=== PATIENT | female | born 1985 | race Caucasian/White ===

== ENCOUNTER 2020-05-11 12:55 | Observation (INO) | payer OTHER, SELFPAY ==
--- NOTE | ~2020-05-11 | US_ITS ---
US OB limited w BPP DATE: 05/11/2020 15:00 INDICATION: decelerations in the office. Gestational diabetes. TECHNIQUE: Real-time imaging and Doppler analysis COMPARISON: 11/25/2019 obstetrical ultrasound FINDINGS: Live bonilla intrauterine gestation, fetus in transverse lie. heart rate of 142 bpm . Placenta is anterior, lower margin 8.3 cm above the cervix. The cervix measures 3.2 cm. Three-vessel umbilical cord. Subjectively normal amount of amniotic fluid. Amniotic fluid index measures 20.4. (5th percentile KSENIA : 7.9 cm; 95th percentile KSENIA: 24.9 cm). BIOPHYSICAL PROFILE reported by composite technician: breathin out of 2 movement: 2 out of 2 tone: 2 out of 2 Amniotic fluid pocket: 2 out of 2 Total score: 8 out of 8 IMPRESSION: Normal biophysical profile score of 8 out of 8 Amniotic fluid index measures 20.4 cm, within normal range Reviewed, dictated and finalized at Location A. Reviewed, dictated and finalized at location A.
[2020-05-11 13:25] VITALS: BMI 31.8
--- NOTE | 2020-05-11 13:25 | OBADM ---
This patient, Rosalba Mathis, admitted to the OB room OB Post 111 for observation. Patient/family oriented to hospital policies and general routines including ID bracelet, bed and alarms, visiting hours, pain management, procedures, bathroom and other care routines, personal items, smoking policy, room service/diet, and visiting hours. Patient/Family are encouraged to report perceived risks to care and to ask questions if they do not understand what they are told or what they should do.
[2020-05-11 13:50] VITALS: BP 107/69; PULSE 86
[2020-05-11 14:00] VITALS: BP 104/66; PULSE 89
[2020-05-11 14:15] VITALS: BP 104/63; PULSE 85
--- NOTE | 2020-05-29 12:50 | PM.OBTRLD ---
OB - Triage/Final Diagnosis Final Diagnosis (1) arrhythmia affecting , antepartum: Code(s): O36.8390 - Maternal care for abnormalities of the heart rate or rhythm, unspecified trimester, not applicable or unspecified Status: Acute
== END 2020-05-11 15:55 | disposition home or self-care (01) ==
PROVIDERS: Admitting Provider Obstetrics & Gynecology; PCP Family Medicine; Visit Provider Obstetrics & Gynecology
DX: O36.8330 Maternal care for abnormalities of the fetal heart rate or rhythm, third trimester, not applicable or unspecified (principal); Z3A.35 35 weeks gestation of pregnancy
CPT/HCPCS: 76815; 76819; G0378; G0379

== ENCOUNTER 2020-06-11 09:37 | Outpatient (CLI) | payer OTHER, SELFPAY ==
[2020-06-11 10:16] LABS: Hematocrit 33.1 % (37.0-47.0); Hemoglobin 10.7 g/dL (12.0-15.0); Mean Corpuscular HGB Conc 32.3 g/dl (32-36); Mean Corpuscular Hemoglobin 27.4 pg (26-34); Mean Corpuscular Volume 84.9 fl (80-100); Mean Platelet Volume 11.6 fl (7.4-10.4); Platelet Count Result 208 k/mm3 (150-375); Red Cell Distribution Width 14.6 % (11.5-14.5); White Blood Count 6.9 K/mm3 (4.5-10.0)
[2020-06-12 10:52] LABS: Rapid Plasma Reagin Non-Reactive (NonReactive)
== END 2020-06-11 09:38 | disposition home or self-care (01) ==
PROVIDERS: PCP Family Medicine; Visit Provider Obstetrics & Gynecology
DX: Z34.93 Encounter for supervision of normal pregnancy, unspecified, third trimester (principal); Z3A.00 Weeks of gestation of pregnancy not specified
CPT/HCPCS: 36415; 85027; 86592; 86850; 86900; 86901

== ENCOUNTER 2020-06-12 08:22 | Inpatient (IN) | payer OTHER, SELFPAY ==
[2020-06-12] VITALS (51 sets, daily range): BP systolic 94–122; BP diastolic 33–86; PULSE 55–79; RESP 14–20; TEMP 36.1–36.4; O2SAT 96–100; BMI 32.5
--- NOTE | 2020-06-12 08:41 | LDADM ---
This patient, Rosalba Mathis, was admitted to OB Post 117 on 06/12/20 at 08:22. Plans for labor, pain management and were discussed with patient. Patient/family oriented to hospital policies and general routines including ID bracelet, bed and alarms, visiting hours, pain management, procedures, bathroom and other care routines, personal items, smoking policy, room service/diet and guest tray routines, infant security routines, and visiting hours. Patient/Family are encouraged to report perceived risks to care and to ask questions if they do not understand what they are told or what they should do. See OBIX for further documentation.
--- NOTE | 2020-06-12 08:44 | PM.IMHP ---
H&P: HPI History of Present Illness Chief complaint: c/s Narrative: Rosalba Mathis is a 34 year old female A1 @ 39 weeks by first trimester ultrasound lmp 09/15/19 edc 06/16/20 complicated by AMA, csectin x 4, history of , a2gdm and fetus +choroid plexus cyst and arrythmia normal chromosomes. U/S with [facility]. Patient DM controlled well. Patient reports movement and irregular contractions. [facility] Past Medical History Medical History arrhythmia affecting , antepartum Surgical History Surgical History (Updated 06/12/20 @ 08:49 by Kayden Solis MD) H/O: Social History Social History Smoking status: Never smoker Second hand tobacco smoke exposure: No Alcohol intake: current Substance use: never Gender identity (if verbalized by the patient): Female Spiritual care concerns: No Meds Home Medications and Allergies Allergies Allergy/AdvReac Type Severity Reaction Status Date / Time No Known Allergies Allergy Unverified 11/08/16 12:42 Exam Const: General: no acute distress Resp: Auscultation: clear to auscultation bilaterally Cardio: Rate: regular rate Rhythm: regular rhythm GI: GI Palp: Yes Soft to palpation (Gravid) Assessment and Plan Assessment and plan (1) H/O: : Code(s): Z98.891 - History of uterine scar from previous surgery Status: Acute Assessment and Plan: schedule for a repeat csection. Risk and benefits reviewed with patient in detail. Patient agrees to proceed.
[2020-06-12] MEDS: LACTATED RINGERS 1,000 ML 999 ML IV CONT ×2 (09:15→09:32)
--- NOTE | 2020-06-12 09:32 | P.PNAN_ITS ---
Anes - Initial Pre Proc Eval Procedure: Operation Date: 06/12/20 10:30 Proposed Procedures p Repeat Section - Kayden Solis MD Date/Time: 06/12/20 09:32 Surgeon: aKyden Solis MD Pre Op Diagnosis: c/s Patient Data Age: 34 Gender: F Height: Weight: Allergies Allergy/AdvReac Type Severity Reaction Status Date / Time No Known Allergies Allergy Unverified 11/08/16 12:42 Home Medications Medication Instructions Recorded Confirmed Type [id number] fumarate-FA 1 tablet PO DAILY 06/12/20 06/12/20 History [] ergocalciferol (vitamin D2) 1,250 mcg PO DAILY 06/12/20 06/12/20 History ferrous sulfate [Slow Fe] 142 mg PO DAILY 06/12/20 06/12/20 History insulin NPH isoph U-100 human 6 unit SUBCUT DAILY 06/12/20 06/12/20 History [Humulin N NPH U-100 Insulin] Patient hx anesthesia problems: none Family hx anesthesia problems: none [facility] Past Medical History Medical History (Updated 06/12/20 @ 09:33 by Arun Maldonado MD) arrhythmia affecting , antepartum GDM (gestational diabetes mellitus) Surgical History Surgical History (Updated 06/12/20 @ 08:49 by Kayden Solis MD) H/O: Social History Social History Smoking status: Never smoker Second hand tobacco smoke exposure: No Alcohol intake: current Substance use: never Gender identity (if verbalized by the patient): Female Spiritual care concerns: No Anes - Eval Final PreProcedure Day of Procedure 06/12/20 09:32 Patient weight: obese Heart: regular rate and rhythm Lungs: clear to auscultation and normal air movement Airway: Mallampati scale class II Neurological: alert and oriented Last oral intake: >/= 8 hours ASA classification: III Emergent: no Anesthetic plan: proceed Anesthesia type and monitoring: regional spinal Informed Consent: The patient's anesthetic plan and its attendant risks and benefits were discussed with the patient/family/POA. Questions were solicited and answers provided to the satisfaction of the patient/family/POA.
[2020-06-12] MEDS: KETOROLAC 30 MG/ML VIAL (*BKC) IV PUSH (11:08)
--- NOTE | 2020-06-12 11:19 | PM.OBPRVD ---
OB - Delivery Note Procedure Delivery date: 06/12/20 Procedure: Procedures Operation Date: 06/12/20 10:30 Actual Procedures Side Surgeon p Section Kayden Solis MD events: Gestational Diabetes Route of delivery: Estimated blood loss (mL): 655 Anesthesia type: Spinal Disposition: observation [place] Baby Date of : 06/12/20 Time of : 10:48 Weeks of gestation at delivery: 39 Infant gender: Female Weight (pounds): 8 Weight (ounces): 9 presentation: vertex position: Left Occiput Anterior Placenta delivery description: Expressed cord vessel description: 3 Vessels score one minute: 8 score five minutes: 9
[2020-06-12] MEDS: diphenhydrAMINE HCl INJ 50 MG/ML VIAL 12.5 MG IV PUSH (11:58)
--- NOTE | 2020-06-12 12:19 | SUR.PHASEI ---
BABY IS STILL ATTEMPTING TO BREASTFEED. MOTHER WORKING WELL WITH TRYING, BABY WILL LATCH AND SUCK AND LET GO.
[2020-06-12] MEDS: OXYTOCIN 30 UNITS/NS 500 ML 30 UNITS/500 ML BAG 125 UNITS IV CONT (13:40)
--- NOTE | 2020-06-12 13:57 | PC.NURSE ---
1332-Patient transferred to post room #292 via stretcher. Support person present. Oriented to unit, room, information board, rooming in, admission packet and security measures. Patient verbalizes understanding.
--- NOTE | 2020-06-12 14:38 | SUR.PHASEI ---
1330 ASSESSMENT REMAINS STABLE AND UNCHANGED...READY FOR TRANSPORT TO [facility] AND REPORT TO [facility].
[2020-06-12] MEDS: DEXTROSE 5%/0.45% SOD CHL 1,000 ML 125 ML IV CONT (17:53)
[2020-06-12] MEDS: IBUPROFEN 600 MG TABLET PO (20:32)
[2020-06-12] MEDS: SIMETHICONE 80 MG TAB.CHEW PO (20:33)
[2020-06-13 00:47] VITALS: BP 94/52; PULSE 76; RESP 16; TEMP 36.4; O2SAT 100
[2020-06-13] MEDS: SIMETHICONE 80 MG TAB.CHEW PO ×6 (04:36→23:57)
[2020-06-13] MEDS: IBUPROFEN 600 MG TABLET PO ×3 (04:36→20:45)
[2020-06-13 04:55] VITALS: BP 108/63; PULSE 77; RESP 20; TEMP 36.6; O2SAT 100
[2020-06-13 05:00] VITALS: O2SAT 100
[2020-06-13 05:10] LABS: Basophils Percent Auto 0.4 % (0.2-1.2); Eosinophils Absolute Auto 0.1 K/mm3 (0-0.3); Eosinophils Percent Auto 1.1 % (0-4.4); Hematocrit 29.2 % (37.0-47.0); Hemoglobin 9.2 g/dL (12.0-15.0); Immature Granulocyte Absolute 0.05 K/mm3 (0.00-0.031); Immature Granulocyte Percent A 0.9 % (0-0.5); Lymphocytes Absolute Auto 1.03 K/mm3 (0.9-3.2); Lymphocytes Percent Auto 18.2 % (18.3-44.2); Mean Corpuscular HGB Conc 31.5 g/dl (32-36); Mean Corpuscular Hemoglobin 27.5 pg (26-34); Mean Corpuscular Volume 87.4 fl (80-100); Mean Platelet Volume 11.4 fl (7.4-10.4); Monocytes Absolute Auto 0.5 K/mm3 (0.1-0.6); Neutrophils Absolute Auto 4.1 K/mm3 (1.3-6.7); Neutrophils Percent Auto 71.4 % (45.5-73.1); Platelet Count Result 159 k/mm3 (150-375); Red Blood Count 3.34 M/mm3 (4.2-5.4); Red Cell Distribution Width 14.5 % (11.5-14.5); White Blood Count 5.7 K/mm3 (4.5-10.0)
[2020-06-13] MEDS: DOCUSATE SODIUM 100 MG CAPSULE PO ×2 (09:19→17:13)
[2020-06-13] MEDS: POLYSACCHARIDE IRON COMPLEX 150 MG CAPSULE PO ×2 (09:19→17:13)
[2020-06-13 09:50] VITALS: BP 125/67; PULSE 80; RESP 18; TEMP 36.6; O2SAT 100
--- NOTE | 2020-06-13 10:05 | PM.OBPNVD ---
OB - PN: Subj Subjective Date/time seen: 06/13/20 10:05 Patient comments: no complaints and pain well controlled baby status: doing well OB - PN: Obj Data Labs CBC & Chem 7: 06/13/20 04:59 Labs: Laboratory Results - last 24 hr 06/13/20 04:59 WBC 5.7 RBC 3.34 L Hgb 9.2 L Hct 29.2 L MCV 87.4 MCH 27.5 MCHC 31.5 L RDW 14.5 Plt Count 159 MPV 11.4 H Immature Gran % (Auto) 0.9 H Neut % (Auto) 71.4 Lymph % (Auto) 18.2 L [place] % (Auto) 8.0 Eos % (Auto) 1.1 Baso % (Auto) 0.4 Lymph # (Auto) 1.03 [place] # (Auto) 0.5 Eos # (Auto) 0.1 Baso # (Auto) 0.0 Abs Immat Gran (auto) 0.05 H Absolute Neuts (auto) 4.1 Absolute Nucleated RBC 0.0 Nucleated RBC % 0.0 OB - PN A/P Plan day: 1 Plan: routine care Time Spent With Patient Time: Total time spent is greater than 50% in coordination of care (as documented) at patient's floor/unit and/or counseling patient: Exam GI: Other: incision c/d/i : Bimanual exam- vagina & uterus: other (Uterus firm, nt @U)
--- NOTE | 2020-06-13 10:24 | OP_ITS ---
DATE OF PROCEDURE: 06/12/2020 PREOPERATIVE DIAGNOSIS: Repeat section. POSTOPERATIVE DIAGNOSIS: Repeat section. PROCEDURE PERFORMED: Repeat section. ANESTHESIA: Spinal. ESTIMATED BLOOD LOSS: 655 mL. URINE OUTPUT: . FINDINGS: Female infant in vertex presentation. DESCRIPTION OF PROCEDURE: The patient was taken to the operating room with IV running, prepared and draped in normal sterile fashion. Spinal anesthesia was performed. The patient was positioned in a supine position with a leftward tilt prior to being prepped for surgery. A Pfannenstiel incision was made with a scalpel, carried down to the underlying layer of fascia. The fascial incision was then extended bilaterally with Garduno scissors. Superior aspect of the incision was grasped with Alissa clamps, elevated, dissected off the rectus muscles. The inferior aspect of the incision was grasped with Alissa clamps, elevated, dissected off the rectus muscles. The rectus muscles were in the midline. The peritoneum was entered and noted a thin uterine window on the left aspect of the uterus. The bladder flap was created by grasping the vesicouterine peritoneum sharply and creating a bladder flap bluntly. Bladder blade was reinserted and the lower uterine segment was incised in a transverse fashion. Clear fluid noted. The fetus delivered atraumatically. Cord was clamped and cut. The fetus was handed off to the waiting nurse. Cord blood and cord gases were obtained. The placenta was delivered spontaneously and the uterus was exteriorized of all clots and debris. The uterine incision was then closed with 0 Monocryl in a running locked fashion. A 2nd layer of the same suture was used to imbricate this incision. The uterus was returned to the abdomen. Hemostasis was assured. The gutters were cleared of all clots and debris and irrigated. Muscles were examined. The fascia was closed with 0 Vicryl suture. Subcutaneous tissue was irrigated and closed with 3-0 plain gut and the skin was closed with 4-0 Vicryl on a Gopi needle and covered with Dermabond. Sponge, lap, and needle counts were correct x2. The patient received 2 g Ancef prior to skin incision. [facility]
--- NOTE | 2020-06-13 14:58 | WPDANLDPN2 ---
Anes-Prog Note L&D Date/Time: 06/13/20 14:58 Comfortable throughout: section Neuraxial method: spinal Epidural/Spinal procedure site: clean & non-tender Neuro status: Neuro function grossly intact. Cardiovascular status: normal Respiratory status: normal Airway patency: baseline Mental status: baseline Post-Op hydration status: normal Vital Signs: Last Vital Signs Temp 36.6 C 06/13/20 09:50 Pulse 80 06/13/20 09:50 Resp 18 06/13/20 09:50 BP 125/67 06/13/20 09:50 Pulse Ox 100 06/13/20 09:50 Pain score (VAS): 0/10. Patient resting in bed at time of assessment, appears comfortable. I/O: Intake & Output 06/12/20 06/13/20 06/13/20 23:59 07:59 15:59 Intake Total 600 300 Output Total 1500 3100 1050 Balance -900 -2800 -1050 Post-procedural complaints: none Patient feedback: Patient satisfied with anesthetic care.
--- NOTE | 2020-06-13 15:11 | WPDANLDNPN2 ---
Anes-Prog Note L&D-Neuraxial Date/Time: 06/13/20 15:11 Neuraxial medications: intrathecal PF morphine Opiod-related complaints: none Patient feedback: Patient satisfied with post-operative pain management.
[2020-06-13 19:45] VITALS: BP 123/72; PULSE 72; RESP 16; TEMP 36.8; O2SAT 100
--- NOTE | 2020-06-14 00:59 | PC.NURSE ---
Patient was given the opportunity to view the discharge video Mother & Baby Care, The First Two Weeks and to ask questions. Patient declined viewing the video and has been given the mother/baby guide for home reference.
[2020-06-14 07:45] VITALS: BP 135/75; PULSE 77; RESP 18; TEMP 36.9
[2020-06-14] MEDS: DOCUSATE SODIUM 100 MG CAPSULE PO (07:50)
[2020-06-14] MEDS: IBUPROFEN 600 MG TABLET PO ×2 (07:50→15:40)
[2020-06-14] MEDS: POLYSACCHARIDE IRON COMPLEX 150 MG CAPSULE PO (07:50)
--- NOTE | 2020-06-14 09:29 | PM.OBPNVD ---
OB - PN: Subj Subjective Date/time seen: 06/14/20 09:29 Patient comments: no complaints and pain well controlled baby status: doing well [place] feeding status: exclusively breast feeding OB - PN: Obj Data Labs CBC & Chem 7: 06/13/20 04:59 OB - PN A/P Plan day: 2 Plan: routine care and discharge home Comments: Plans POP until Mirena Time Spent With Patient Time: Total time spent is greater than 50% in coordination of care (as documented) at patient's floor/unit and/or counseling patient: Exam GI: Other: Inc c/d/i : Bimanual exam- vagina & uterus: other (Uterus firm, nt @U)
[2020-06-17 11:18] VITALS: BP 119/78; PULSE 81; RESP 18; TEMP 37.1; O2SAT 100
--- NOTE | 2020-06-24 13:56 | PM.OBDSVD ---
DS: Admitting Diagnosis Admitting Diagnosis Admitting Diagnosis: Encounter for supervision of normal , unspecified, third trimester OB - DS: Summary OB Procedures : NST and Ultrasound OB Procedures Intrapartum: OB Procedures: : None Peripartum Data Infant Delivery Method: Section Procedures: Procedures Operation Date: 06/12/20 10:30 Actual Procedures Side Surgeon p Section Kayden Solis MD Time Spent with Patient Time attestation: Total time spent providing and/or coordinating discharge services: DS: Data Data Completed and Pending Completed studies during hospitalization: Pending at discharge 06/12/20 10:49 Surgical [PTH] Routine Discharge Plan Discharge Attending physician on discharge: Kayden Solis Consulting providers: Arun Maldonado Discharging Clinician: Morena Ann Anticipated Discharge Date/Time: 06/14/20 09:31 Patient Disposition: Home, Self-Care Activity: may shower, may drive after 2 weeks and pelvic rest Diet: regular Discharge Instructions: Education: Mom and Baby Guide and Preeclampsia Handout Given to: Mother Follow-Up: Call your delivering provider's office for an appointment to be seen in: 1 Week Mom and baby should come to the [facility] for the follow-up appointment. Appointment Date/Time: June 17, 2020 at 11:00 am What to expect at your follow-up visit: Physical Assessment Call [phone] if you are unable to keep your appointment time. BREAST CARE: 1. Wear a snug supportive bra. 2. For engorgement discomfort: Breast Feeding: A. Apply warm moist washcloths B. Express milk as needed to relieve engorgement C. Wear loose clothing 3. For sore nipples: A. Identify correct latch-on B. Apply warm moist washcloths before and after nursing C. Air dry nipples after nursing D. May apply Lansinoh cream to nipples ABDOMINAL INCISION: (if applicable) 1. Allow incision to air dry 2. Do NOT use lotions for powders on your incision 3. When showering, allow soap and water to run over the incision, but do not wash incision EPISIOTOMY/PERINEAL CARE: 1. Until bleeding stops, use your darya bottle after urinating 2. Change your pad frequently throughout the day 3. No tub baths until seen by your physician - You may shower ACTIVITY: 1. Rest as much as possible. 2. Do not exercise or lift anything heavier than your baby (such as laundry or other children.) 3. Avoid stairs or driving as much as possible. 4. Do not put anything into the vagina. No douching, tampons, or sexual activity until seen by physician. NOTIFY PHYSICIAN IF YOU HAVE ANY QUESTIONS OR IF ANY OF THE FOLLOWING SYMPTOMS OCCUR: 1. If your incision becomes red, swollen, or more painful than what you have experienced in the hospital. 2. If your vaginal bleeding becomes foul smelling. 3. If your vaginal bleeding becomes more heavy than a period or if your bleeding changes from pink to bright red. However, you may pass an occasional walnut-sized clot once or twice for the first week . 4. If you experience a sharp, shooting pain in you calves. 5. If you discover a hard, reddened area on your breast or if you experience flu-like symptoms. DIET: 1. Eat regular, well-balanced meals. 2. Drink plenty of fluids daily. If , drink to thirst. Stand Alone Forms: General Discharge Information Follow-up/Referrals: Kayden Solis MD [Physician] - 1 Week Discharge Medications: New hydrocodone-acetaminophen 5-325 mg Tablet 1 tab PO Q3H PRN (Reason: Moderate Pain (4-6)) Qty: 15 RF: 0 norethindrone (contraceptive) 0.35 mg tablet 0.35 mg PO DAILY Qty: 1 RF: 1 Continued ergocalciferol (vitamin D2) 1,250 mcg (50,000 unit) capsule 1,250 mcg PO DAILY RF: 0 Slow Fe 142 mg (45 mg iron) Tablet Ext
== END 2020-06-14 15:43 | disposition home or self-care (01) | DRG 788 ==
LOC: ANHOB2 06-14 14:19 → ANHLDR 06-17 07:28 → ANHOBPP 06-17 07:28 → ANHOB2 06-19 17:09
PROVIDERS: Admitting Provider Obstetrics & Gynecology; Visit Provider Obstetrics & Gynecology Gynecology
PROC: 10D00Z1 Extraction of Products of Conception, Low, Open Approach (ICD-10-PCS; CPT 59514; principal; 2020-06-12 10:30)
DX: O34.211 Maternal care for low transverse scar from previous cesarean delivery (principal); O24.424 Gestational diabetes mellitus in childbirth, insulin controlled; Z3A.38 38 weeks gestation of pregnancy; Z37.0 Single live birth; O99.214 Obesity complicating childbirth; E66.9 Obesity, unspecified
CPT/HCPCS: 36415; 85025; 85027; 86592; 86850; 86900; 86901; 88307; 99199; A9270; J0131; J1200; J1885; J2274; J2370; J2405; J2590; J3010; J7120

== ENCOUNTER → 2021-10-20 13:00 | Outpatient (CLI) | payer OTHER, SELFPAY ==
--- NOTE | ~2021-10-20 | US_ITS ---
EXAMINATION: 1. US OB /maternal detail 2. US_OBFEMATADD_US DATE: 10/20/2021 14:00 INDICATION: Uncertain chorionicity. TECHNIQUE: Real-time ultrasound of the pelvis was performed. COMPARISON: None. FINDINGS: There are two fetuses by a membrane with twin peaks sign. The placentas are anterior and po sterior. Fetus A is in breech presentation on the mother's right with heart rate of 153 bpm by m-mode Doppler. The following biometric data were obtained for fetus A: Biparietal diameter (BPD): 2.9 cm; head circumference (HC): 11.3 cm; abdominal circumference (AC): 9. 2 cm; femur length (FL): 1.4 cm. These measurements are concordant. Estimated weight is 109 g +/- 16 g, which correlates with 11th percentile when 04/10/22 is used as estimated date of delivery. As single measurements, these parameters are each equal to the following estimated gestational ages w ith ranges of +/- 2 standard deviations: BPD: 15 weeks 2 days (14 weeks 1 days - 16 weeks 4 days). HC: 15 weeks 3 days (14 weeks 2 days - 16 weeks 5 days). AC: 15 weeks 2 days (13 weeks 5 days - 17 weeks 0 days). FL: 14 weeks 2 days (12 weeks 6 days - 15 weeks 4 days). estimated gestational age based solely on measurements from this exam is 15 weeks 1 days +/- 1 weeks 0 days. Fetus B demonstrates a crown-rump length of 3.0 cm, which correlates with an estimated gestational ag e of 9 weeks and 6 days +/- 6 days. There is no heart movement by M-mode Doppler in Fetus B, co nsistent with demise. IMPRESSION: 1. Dichorionic, diamniotic twins. 2. Living Fetus A with estimated date of delivery of 04/12/2022. 3. Demise of Fetus B. Reviewed, dictated and finalized at location A. CAMP ATTENDANT IMPRESSION: 1. Dichorionic, diamniotic twins. 2. Living Fetus A with estimated date of delivery of 04/12/2022. 3. Demise of Fetus B.
== END ==
PROVIDERS: Visit Provider Obstetrics & Gynecology
DX: O30.041 Twin pregnancy, dichorionic/diamniotic, first trimester (principal); Z3A.09 9 weeks gestation of pregnancy
CPT/HCPCS: 76805; 76810

== ENCOUNTER 2021-12-30 15:45 | Emergency (ER) | payer OTHER, SELFPAY ==
--- NOTE | ~2021-12-30 | XR_ITS ---
XR chest 1V portable DATE: 12/30/2021 17:36 INDICATION: Shortness of breath on exertion. 25 weeks patient. TECHNIQUE: Portable AP view with double shielding of the abdomen and pelvis COMPARISON: None FINDINGS: Normal heart size. No hilar or mediastinal enlargement. No pulmonary infiltrate or consolid ation, pleural effusion or pulmonary vascular congestion or pneumothorax. Included skeletal structure s are unremarkable other than mild dextroscoliosis of the thoracolumbar spine. IMPRESSION: No active cardiopulmonary disease Reviewed, dictated and finalized at location A. UCTION CONTROL MANAGER
[2021-12-30 15:56] VITALS: BP 131/93; PULSE 91; RESP 18; TEMP 36.4; O2SAT 97
--- NOTE | 2021-12-30 16:15 | ECG_ITS ---
Measurements Intervals [place] Rate: 93 P: 54 NJ: 131 QRS: 36 QRSD: 86 T: -1 QT: 356 QTc: 443 Interpretive Statements SINUS RHYTHM BORDERLINE T WAVE ABNORMALITY- INFERIOR LEADS BASELINE ARTIFACT- I, II, III, AVR, AVL, AVF, V1, V3-V6 BORDERLINE ECG Electronically Signed On 12-30-2021 16:25:25 METALWORKER by Chapincito Lewis D.O.
--- NOTE | 2021-12-30 16:17 | ED.SOB ---
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 Patient had COVID symptoms December 01, 2 days later tested positive for Covid, most of the symptoms are resolved except shortness of breath. Gets worse on exertion, better at rest. Patient also noticed increased heart rate with activities. Patient denies increase the severity of the shortness of breath. Patient unable to see a film masker soon thus why referred to the emergency room to rule out the possibility of PEs. Currently patient is asymptomatic as long as sitting in bed. Patient is 25 weeks , seven, para five and one. Patient does not take medicine at home, does not smoke or drink or uses drugs. <Renetta Galicia MD - Last Filed: 12/30/21 16:29> Related Data Home Medications: Home Medications Medication Instructions Recorded Confirmed hydroxyprogest(PF)(preg presv) 275 mg SUBCUT WEEKLY 12/30/21 [Izzy (PF)] <Renetta Galicia MD - Last Filed: 12/30/21 16:29> Allergies/Adverse Reactions: Allergies Allergy/AdvReac Type Severity Reaction Status Date / Time No Known Allergies Allergy Verified 12/30/21 16:49 <Renetta Galicia MD - Last Filed: 12/30/21 16:29> Review of Systems Review of Systems: CONSTITUTIONAL: Denies fever, chills, or sweats. EYES: Denies visual changes, redness, or discharge. ENT: Denies rhinorrhea, congestion, sore throat, or otalgia. CARDIOVASCULAR: Denies chest pain, palpitations, or edema. RESPIRATORY: Denies cough or dyspnea. GASTROINTESTINAL: Denies abdominal pain, nausea, vomiting, or diarrhea. GENITOURINARY: Denies dysuria or hematuria. SKIN: Denies rash or itching. MUSCULOSKELETAL: Denies back pain, joint pain, or myalgia. NEUROLOGIC: Denies headache, numbness, or weakness. PSYCHIATRIC: Denies anxiety or depression. <Renetta Galicia MD - Last Filed: 12/30/21 16:29> Exam Narrative: General appearance: Well-developed, well-nourished Skin: Normal color Head: Normocephalic, nontraumatic Eyes: Clear conjunctiva ENT: Oropharynx normal, ears normal, nose normal Neck: Supple, nontender Chest and respiratory: Airway patent, no respiratory distress, no accessory muscle use Heart: Regular rate/rhythm Abdomen: Soft, nontender, no organomegaly, quiet bowel sounds Vascular: Normal peripheral pulses, normal capillary refill. 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
[2021-12-30 16:29] VITALS: O2SAT 100
[2021-12-30 16:35] LABS: Basophils Percent Auto 0.1 % (0.2-1.2); Eosinophils Percent Auto 0.4 % (0-4.4); Hematocrit 30.9 % (37.0-47.0); Hemoglobin 10.3 g/dL (12.0-15.0); Immature Granulocyte Absolute 0.04 K/mm3 (0.00-0.031); Immature Granulocyte Percent A 0.5 % (0-0.5); Lymphocytes Absolute Auto 1.36 K/mm3 (0.9-3.2); Lymphocytes Percent Auto 18.7 % (18.3-44.2); Mean Corpuscular HGB Conc 33.3 g/dl (32-36); Mean Corpuscular Hemoglobin 30.7 pg (26-34); Mean Corpuscular Volume 92.2 fl (80-100); Mean Platelet Volume 10.6 fl (7.4-10.4); Monocytes Absolute Auto 0.4 K/mm3 (0.1-0.6); Monocytes Percent Auto 5.8 % (2.6-8.5); Neutrophils Absolute Auto 5.4 K/mm3 (1.3-6.7); Neutrophils Percent Auto 74.5 % (45.5-73.1); Platelet Count Result 210 k/mm3 (150-375); Red Blood Count 3.35 M/mm3 (4.2-5.4); Red Cell Distribution Width 12.7 % (11.5-14.5); White Blood Count 7.3 K/mm3 (4.5-10.0)
[2021-12-30 16:45] LABS: Alanine Aminotransferase 21 U/L (4-35); Albumin Level 3.6 g/dL (3.5-5.1); Alkaline Phosphatase 75 U/L (38-126); Anion Gap 6 mmol/L (8-16); Aspartate Amino Transferase 26 U/L (14-36); Bilirubin,Total 0.1 mg/dL (0.2-1.3); Blood Urea Nitrogen 10 mg/dL (7-17); Calcium 8.7 mg/dL (8.4-10.2); Carbon Dioxide 21 mmol/L (22-30); Chloride 108 mmol/L (98-107); Estimated CRCL calculation 100 ml/min; Estimated Glomerular Filt Rate > 60; Glucose 147 mg/dL (65-110); Magnesium 1.6 mg/dL (1.6-2.3); Potassium 3.4 mmol/L (3.4-5.0); Sodium 135 mmol/L (137-145)
[2021-12-30 16:49] LABS: INR 0.9; Partial Thromboplastin Time 25.6 SECONDS (22.3-36.8); Prothrombin Time 12.3 Seconds (11.1-14.7)
[2021-12-30 16:52] LABS: D Dimer 0.42 ug/mL (<0.48)
[2021-12-30 16:53] VITALS: PULSE 82; RESP 14; O2SAT 100
[2021-12-30 16:57] LABS: Troponin I < 0.012 ng/mL (0.000-0.034)
[2021-12-30 17:00] LABS: Alveolar/Arterial O2 Gradient 13.3 mmHg; Fractional Inspired Oxygen 21 %; HCO3 ABG 19.6 mEq/l (22.0-26.0); Oxygen Content ABG 15.2 %vol (16.0-22.0); Oxygen Saturation ABG 98.1 % (95.0-100.0); Oxyhemoglobin 96.5 % THb (90.0-100.0); PCO2 ABG 27.5 mmHg (35.0-45.0); PO2 ABG 103.5 mmHg (80.0-100.0); PO2 FiO2 Ratio Arterial Blood 4.93 %; Total Hemoglobin 11.1 g/dL (12.0-18.0); pH ABG 7.471 (7.350-7.450)
[2021-12-30 17:01] LABS: Device ROOM AIR; Site Drawn LEFT BRACHIAL
[2021-12-30 18:25] VITALS: BP 116/69; PULSE 88; RESP 16; O2SAT 100
== END 2021-12-30 18:28 | disposition home or self-care (01) ==
PROVIDERS: Emergency Medicine; Emergency Provider Emergency Medicine; PCP Family Medicine
DX: O99.891 Other specified diseases and conditions complicating pregnancy (principal); R06.00 Dyspnea, unspecified; Z3A.25 25 weeks gestation of pregnancy
CPT/HCPCS: 36415; 36600; 71045; 80053; 82805; 83735; 84484; 85025; 85380; 85610; 85730; 93005; 99284

== ENCOUNTER 2022-02-17 12:01 | Outpatient (CLI) | payer OTHER, SELFPAY ==
[2022-02-17 12:25] LABS: Hematocrit 30.6 % (37.0-47.0); Hemoglobin 10.3 g/dL (12.0-15.0); Mean Corpuscular HGB Conc 33.7 g/dl (32-36); Mean Corpuscular Hemoglobin 30.9 pg (26-34); Mean Corpuscular Volume 91.9 fl (80-100); Mean Platelet Volume 11.4 fl (7.4-10.4); Platelet Count Result 158 k/mm3 (150-375); Red Blood Count 3.33 M/mm3 (4.2-5.4); Red Cell Distribution Width 13.2 % (11.5-14.5); White Blood Count 5.7 K/mm3 (4.5-10.0)
[2022-02-17 12:35] LABS: Alanine Aminotransferase 76 U/L (4-35); Albumin Level 3.4 g/dL (3.5-5.1); Alkaline Phosphatase 120 U/L (38-126); Anion Gap 8 mmol/L (8-16); Aspartate Amino Transferase 64 U/L (14-36); Bilirubin,Total 0.3 mg/dL (0.2-1.3); Blood Urea Nitrogen 8 mg/dL (7-17); Calcium 7.9 mg/dL (8.4-10.2); Carbon Dioxide 20 mmol/L (22-30); Chloride 109 mmol/L (98-107); Estimated Glomerular Filt Rate > 60; Glucose 68 mg/dL (65-110); Potassium 4.3 mmol/L (3.4-5.0); Sodium 137 mmol/L (137-145); Uric Acid 7.1 mg/dL (2.5-7.5)
== END 2022-02-17 12:02 | disposition home or self-care (01) ==
PROVIDERS: Visit Provider Obstetrics & Gynecology Gynecology
DX: O13.3 Gestational [pregnancy-induced] hypertension without significant proteinuria, third trimester (principal); Z3A.00 Weeks of gestation of pregnancy not specified
CPT/HCPCS: 36415; 80053; 84550; 85027

== ENCOUNTER 2022-02-18 15:00 | Inpatient (IN) | payer OTHER, SELFPAY ==
[2022-02-18] VITALS (14 sets, daily range): BP systolic 142–167; BP diastolic 77–89; PULSE 64–76
--- NOTE | ~2022-02-18 | US_ITS ---
EXAMINATION: US OB limited, US umbilical doppler DATE: 03/03/2022 07:37 INDICATION: Preeclampsia, third trimester TECHNIQUE: Real-time ultrasound of the pelvis was performed. The interpreting radiologist was not pre sent for the study. COMPARISON: None. FINDINGS: There is a single living fetus in vertex presentation. The placenta is posterior. car diac activity and movement are noted. heart rate is 130 beats per minute (bpm). The amnio tic fluid index is 13.2 cm which is normal (normal range: 8.1 cm to 24.8 cm). Umbilical artery pulsed Doppler demonstrates peak systolic to end-diastolic velocity ratios (S/D rati os) of 3.4 and 3.2 near the fetus, 3.0 and 3.2 in the mid cord, and 2.7 and 2.9 near the placenta (5t h percentile = 2.07, 95th percentile = 3.4). IMPRESSION: 1. Single living fetus in vertex presentation. 2. Normal umbilical artery Dopplers. 3. Normal amniotic fluid index. Reviewed, dictated and finalized at location A. IMPRESSION: 1. Single living fetus in vertex presentation. 2. Normal umbilical artery Dopplers. 3. Normal amniotic fluid index.
--- NOTE | ~2022-02-18 | US_ITS ---
EXAMINATION: US OB limited, US umbilical doppler DATE: 02/24/2022 08:04 INDICATION: Preeclampsia. TECHNIQUE: Real-time ultrasound of the pelvis was performed. This included Doppler imaging of the umb ilical artery. The interpreting radiologist was not present for the study. COMPARISON: 02/21/2022 FINDINGS: There is a single living fetus in breech presentation. The placenta is posterior. heart rate i s 130 beats per minute (bpm). The amniotic fluid index is 16.9 cm, which is normal (5th%-95%: 8.3-24. 5 cm at 33 weeks estimated gestational age). The umbilical artery demonstrates a peak systolic and di astolic velocity ratio of 3.6 at the fetus, 3.4 in the mid cord and 2.35 near the placenta (5th%-95%: 2.11-3.67 at 33 weeks). IMPRESSION: 1. Single living fetus in breech presentation with heart rate of 130 bpm. 2. Normal amniotic fluid index of 16.9 cm. 3. Normal umbilical artery peak systolic to diastolic ratio. Reviewed, dictated and finalized at location B. IMPRESSION: 1. Single living fetus in breech presentation with heart rate of 130 bpm . 2. Normal amniotic fluid index of 16.9 cm. 3. Normal umbilical artery peak systolic to diastolic ratio.
--- NOTE | ~2022-02-18 | US_ITS ---
EXAMINATION: US OB follow up, US umbilical doppler EXAM DATE: 03/10/2022 07:57 INDICATION: EFW, growth percentile, KSENIA- Gest DM and preeclamp 3rd trimester. TECHNIQUE: Pelvic obstetrical transabdominal sonogram was performed by a technologist. There are mu ltiple grayscale and Doppler images available for interpretation. Umbilical artery Doppler ratios. Co mparison is made to prior examination from 03/03/2021. FINDINGS: There is a single fetus identified in vertex presentation with a heart rate of 134 beats pe r minute. The placenta is located in the posterior position. There is no sonographic evidence of ret roplacental hemorrhage identified. The amniotic fluid index is 14.5 centimeters, which is normal. BIOMETRIC DATA: Biparietal diameter (BPD): 8.5 cm ----------------> 34 weeks 3 days. Head circumference (HC): 31.0 cm ----------------> 34 weeks 5 days. Abdominal circumference (AC): 28.6 cm ----------> 32 weeks 5 days. Femur length (FL): 5.8 cm --------------------------> 30 weeks 4 days. These measurements are discordant, femur length more than 2 standard deviations lower than expected. Low femur length/BPD ratio. HC/AC ratio is 1.08 (The 5th -- 95th percentile range is 0.96-1.11. Estimated weight is 1959 g +/- 294 g. This is the less than 3rd percentile when the currently reported clinical gestation age 35 weeks 2 days, clinical estimated date of delivery (FELIPA-OPE) 022 is used. estimated gestational age based on measurements from this exam is 33 weeks 1 day, with an estimated date of delivery (FELIPA-AUA) 04/27. UMBILICAL ARTERY DOPPLER Systolic/diastolic ratios obtained as follows: Near baby: 5.1, 4.2 Mid aspect: 3.8, 4.5 Near Placenta: 3.2, 3.0 (The 5th -- 95th percentile range is 2.0 -- 3.4). IMPRESSION: 1. Single fetus in vertex presentation with heart rate 134 beats per minute. 2. Estimated weight of 1959 grams, less than 3rd percentile using the currently reported clini rohini gestation age of 35 weeks 2 days, FELIPA(OPE) 04/12. 3. Femur length, FL/BPD ratio, EFW more than 2 standard deviations below expected. 4. Normal KSENIA 14.5 cm. 5. No low umbilical artery Doppler ratios. Reviewed, dictated and finalized at location A. IMPRESSION: 1. Single fetus in vertex presentation with heart rate 134 beats per minute. 2. Estimated weight of 1959 grams, less than 3rd percentile using the cu rrently reported clinical gestation age of 35 weeks 2 days, FELIPA(OPE) 04/12. 3. Femur length, FL/BPD ratio, EFW more than 2 standard deviations below expec chel. 4. Normal KSENIA 14.5 cm. 5. No low umbilical artery Doppler ratios.
--- NOTE | ~2022-02-18 | US_ITS ---
EXAMINATION: US OB BPP wo non-stress DATE: 02/21/2022 08:13 INDICATION: Gestational diabetes. Preeclampsia. Third trimester. TECHNIQUE: Real-time pelvic ultrasound was performed. COMPARISON: Ultrasound 10/20/2021 FINDINGS: There is a single living fetus in vertex presentation. The placenta is posterior. heart rate i s 148 beats per minute (bpm). Biophysical profile performed by the technologist: breathing (30 sec sustained breathing in 30 minutes): 0 out of 2 movement (3 gross body movements in 30 minutes): 2 out of 2 tone (one episode of htegrrc-[id number]-[id number] limb movement): 2 out of 2 Amniotic fluid pocket (2 cm): 2 out of 2 Total score: 6 out of 8 IMPRESSION: 1. Single living fetus in vertex presentation. 2. Biophysical profile 6 out of 8. Reviewed, dictated and finalized at location A.
[2022-02-18 12:40] LABS: Eosinophils Percent Auto 0.5 % (0-4.4); Hematocrit 29.7 % (37.0-47.0); Hemoglobin 9.8 g/dL (12.0-15.0); Immature Granulocyte Absolute 0.03 K/mm3 (0.00-0.031); Immature Granulocyte Percent A 0.5 % (0-0.5); Lymphocytes Absolute Auto 1.32 K/mm3 (0.9-3.2); Lymphocytes Percent Auto 23.4 % (18.3-44.2); Mean Corpuscular Hemoglobin 30.4 pg (26-34); Mean Corpuscular Volume 92.2 fl (80-100); Mean Platelet Volume 11.3 fl (7.4-10.4); Monocytes Absolute Auto 0.3 K/mm3 (0.1-0.6); Monocytes Percent Auto 5.3 % (2.6-8.5); Neutrophils Percent Auto 70.3 % (45.5-73.1); Platelet Count Result 152 k/mm3 (150-375); Red Blood Count 3.22 M/mm3 (4.2-5.4); Red Cell Distribution Width 13.2 % (11.5-14.5); White Blood Count 5.6 K/mm3 (4.5-10.0)
[2022-02-18 12:50] LABS: Alanine Aminotransferase 77 U/L (4-35); Albumin Level 3.2 g/dL (3.5-5.1); Alkaline Phosphatase 116 U/L (38-126); Anion Gap 5 mmol/L (8-16); Aspartate Amino Transferase 63 U/L (14-36); Bilirubin,Total 0.2 mg/dL (0.2-1.3); Blood Urea Nitrogen 13 mg/dL (7-17); Carbon Dioxide 19 mmol/L (22-30); Chloride 109 mmol/L (98-107); Estimated Glomerular Filt Rate > 60; Glucose 68 mg/dL (65-110); Potassium 3.9 mmol/L (3.4-5.0); Sodium 133 mmol/L (137-145); Uric Acid 6.6 mg/dL (2.5-7.5)
[2022-02-18] MEDS: BETAMETHASONE SOD PHOS/ACETATE 30 MG/5 ML VIAL 12 MG IM (17:03)
[2022-02-18 18:32] LABS: Glucose Point of Care 101 mg/dl (65-105)
[2022-02-18 22:05] LABS: Glucose Point of Care 111 mg/dl (65-105)
[2022-02-18] MEDS: INSULIN HUMAN NPH (*BKC) 100 UNITS/ML 6 UNITS SUB-Q (22:11)
[2022-02-19] VITALS (16 sets, daily range): BP systolic 138–163; BP diastolic 73–89; PULSE 65–107; RESP 16; TEMP 36.6–36.8; BMI 32.6
[2022-02-19 05:46] LABS: Glucose Point of Care 90 mg/dl (65-105)
[2022-02-19 05:49] LABS: Hematocrit 32.7 % (37.0-47.0); Hemoglobin 10.8 g/dL (12.0-15.0); Mean Corpuscular Hemoglobin 30.6 pg (26-34); Mean Corpuscular Volume 92.6 fl (80-100); Mean Platelet Volume 11.4 fl (7.4-10.4); Platelet Count Result 159 k/mm3 (150-375); Red Blood Count 3.53 M/mm3 (4.2-5.4); Red Cell Distribution Width 13.2 % (11.5-14.5); White Blood Count 6.9 K/mm3 (4.5-10.0)
[2022-02-19 05:59] LABS: Alanine Aminotransferase 97 U/L (4-35); Albumin Level 3.3 g/dL (3.5-5.1); Alkaline Phosphatase 115 U/L (38-126); Anion Gap 7 mmol/L (8-16); Aspartate Amino Transferase 80 U/L (14-36); Bilirubin,Total 0.3 mg/dL (0.2-1.3); Blood Urea Nitrogen 11 mg/dL (7-17); Calcium 8.3 mg/dL (8.4-10.2); Carbon Dioxide 19 mmol/L (22-30); Chloride 109 mmol/L (98-107); Estimated Glomerular Filt Rate > 60; Glucose 93 mg/dL (65-110); Potassium 4.4 mmol/L (3.4-5.0); Sodium 135 mmol/L (137-145); Uric Acid 6.8 mg/dL (2.5-7.5)
[2022-02-19 09:41] LABS: Glucose Point of Care 168 mg/dl (65-105)
--- NOTE | 2022-02-19 09:48 | PM.OBPNVD ---
OB - PN: Subj Subjective Date/time seen: 02/19/22 09:48 36-year-old female 6 para [id number] at 33 weeks gestation admitted yesterday with elevated blood pressure from the office. Once admitted pressures have been 12/20/2049 over 80-90 with no complaints of headaches visual changes or abdominal pain. Has had good movement. Also is gestational diabetic on p.m. insulin. Patient had COVID in November this year as well but has recovered from this without any issues. OB - PN: Obj Data Labs CBC & Chem 7: 02/19/22 05:37 02/19/22 05:37 Labs: Laboratory Results - last 24 hr 02/18/22 02/18/22 02/18/22 12:30 12:30 18:24 WBC 5.6 RBC 3.22 L Hgb 9.8 L Hct 29.7 L MCV 92.2 MCH 30.4 MCHC 33.0 RDW 13.2 Plt Count 152 MPV 11.3 H Immature Gran % (Auto) 0.5 Neut % (Auto) 70.3 Lymph % (Auto) 23.4 Rogers % (Auto) 5.3 Eos % (Auto) 0.5 Baso % (Auto) 0.0 L Lymph # (Auto) 1.32 Rogers # (Auto) 0.3 Eos # (Auto) 0.0 Baso # (Auto) 0.0 Abs Immat Gran (auto) 0.03 Absolute Neuts (auto) 4.0 Absolute Nucleated RBC 0.0 Nucleated RBC % 0.0 Sodium 133 L Potassium 3.9 Chloride 109 H Carbon Dioxide 19 L Anion Gap 5 L BUN 13 D Creatinine 0.70 Estim Creat Clear Calc Not Reportable Estimated GFR > 60 Glucose 68 POC Capillary Glucose 101 Uric Acid 6.6 Calcium 8.0 L Total Bilirubin 0.2 AST 63 H ALT 77 H Alkaline Phosphatase 116 Total Protein 6.0 L Albumin 3.2 L 02/18/22 02/19/22 02/19/22 22:02 05:33 05:37 WBC 6.9 RBC 3.53 L Hgb 10.8 L Hct 32.7 L MCV 92.6 MCH 30.6 MCHC 33.0 RDW 13.2 Plt Count 159 MPV 11.4 H Immature Gran % (Auto) Neut % (Auto) Lymph % (Auto) Rogers % (Auto) Eos % (Auto) Baso % (Auto) Lymph # (Auto) Rogers # (Auto) Eos # (Auto) Baso # (Auto) Abs Immat Gran (auto) Absolute Neuts (auto) Absolute Nucleated RBC Nucleated RBC % Sodium Potassium Chloride Carbon Dioxide Anion Gap BUN Creatinine Estim Creat Clear Calc Estimated GFR Glucose POC Capillary Glucose 111 H 90 Uric Acid Calcium Total Bilirubin AST ALT Alkaline Phosphatase Total Protein Albumin 02/19/22 02/19/22 05:37 09:33 WBC RBC Hgb Hct MCV MCH MCHC RDW Plt Count MPV Immature Gran % (Auto) Neut % (Auto) Lymph % (Auto) Rogers % (Auto) Eos % (Auto) Baso % (Auto) Lymph # (Auto) Rogers # (Auto) Eos # (Auto) Baso # (Auto) Abs Immat Gran (auto) Absolute Neuts (auto) Absolute Nucleated RBC Nucleated RBC % Sodium 135 L Potassium 4.4 Chloride 109 H Carbon Dioxide 19 L Anion Gap 7 L BUN 11 Creatinine 0.50 L Estim Creat Clear Calc Not Reportable Estimated GFR > 60 Glucose 93 POC Capillary Glucose 168 H Uric Acid 6.8 Calcium 8.3 L Total Bilirubin 0.3 AST 80 H ALT 97 H Alkaline Phosphatase 115 Total Protein 6.0 L Albumin 3.3 L OB - PN A/P Assessment and Plan (1) 33 weeks gestation of : Code(s): Z3A.33 - 33 weeks gestation of Status: Acute (2) Preeclampsia: Code(s): O14.90 - Unspecified pre-eclampsia, unspecified trimester Status: Acute Assessment and Plan: at this point she is entirely asymptomatic. I discussed with her that if she does begin to have symptoms or significantly elevated blood pressures she will need to be delivered for this reason. And if that does occur prior to 34 weeks if we are able it would be best for her to be transferred to a higher level facility. (3) Elevated liver function tests: Code(s): R79.89 - Other specified abnormal findings of blood chemistry Status: Acute Assessment and Plan: Mild elevations noted and this is increased today. As she has had COVID a
[2022-02-19 13:05] LABS: Collection Time Urine 24 HOURS; Patient Weight 190 Lbs; Total Volume 24 Hour Urine 2550 ml
[2022-02-19 13:29] LABS: Creatinine Clearance Urine 226.1 ml/min (75-125); Creatinine Urine 70.4 mg/dL
[2022-02-19 13:47] LABS: Total Protein Urine Random 294 mg/dL
[2022-02-19 13:48] LABS: Total Protein Urine 24 Hr 7497 mg/24hr (28-141)
--- NOTE | 2022-02-19 15:53 | PC.NURSE ---
called with 24hr urine results, no further orders at this time.
[2022-02-19] MEDS: BETAMETHASONE SOD PHOS/ACETATE 30 MG/5 ML VIAL 12 MG IM (16:49)
[2022-02-19 19:09] LABS: Glucose Point of Care 119 mg/dl (65-105)
[2022-02-19] MEDS: INSULIN HUMAN NPH (*BKC) 100 UNITS/ML 6 UNITS SUB-Q (22:15)
[2022-02-19] MEDS: ACETAMINOPHEN 500 MG TABLET 1000 MG PO (22:16)
[2022-02-20] VITALS (16 sets, daily range): BP systolic 130–157; BP diastolic 69–91; PULSE 66–95; TEMP 36.8–37.2
[2022-02-20 05:23] LABS: Hematocrit 31.4 % (37.0-47.0); Hemoglobin 10.7 g/dL (12.0-15.0); Mean Corpuscular HGB Conc 34.1 g/dl (32-36); Mean Corpuscular Hemoglobin 30.7 pg (26-34); Mean Platelet Volume 11.5 fl (7.4-10.4); Platelet Count Result 184 k/mm3 (150-375); Red Blood Count 3.49 M/mm3 (4.2-5.4); White Blood Count 8.3 K/mm3 (4.5-10.0)
[2022-02-20 05:36] LABS: Glucose Point of Care 162 mg/dl (65-105)
[2022-02-20 05:36] LABS: Alanine Aminotransferase 140 U/L (4-35); Albumin Level 3.3 g/dL (3.5-5.1); Alkaline Phosphatase 112 U/L (38-126); Anion Gap 7 mmol/L (8-16); Aspartate Amino Transferase 105 U/L (14-36); Bilirubin,Total 0.2 mg/dL (0.2-1.3); Blood Urea Nitrogen 11 mg/dL (7-17); Calcium 8.1 mg/dL (8.4-10.2); Carbon Dioxide 17 mmol/L (22-30); Chloride 110 mmol/L (98-107); Estimated CRCL calculation 116 ml/min; Estimated Glomerular Filt Rate > 60; Glucose 119 mg/dL (65-110); Potassium 4.1 mmol/L (3.4-5.0); Sodium 134 mmol/L (137-145); Uric Acid 6.8 mg/dL (2.5-7.5)
--- NOTE | 2022-02-20 07:20 | PM.OBPNVD ---
OB - PN: Subj Subjective Date/time seen: 02/20/22 07:20 36-year-old female admitted for mildly elevated blood pressures at 33 weeks. She continues asymptomatic as she declines headache shortness of breath chest pain visual changes. Good movement and no contractions of significance. OB - PN: Obj Data Labs CBC & Chem 7: 02/20/22 05:14 02/20/22 05:14 Labs: Laboratory Results - last 24 hr 02/19/22 02/19/22 02/19/22 09:33 11:31 19:00 WBC RBC Hgb Hct MCV MCH MCHC RDW Plt Count MPV Sodium Potassium Chloride Carbon Dioxide Anion Gap BUN Creatinine Estim Creat Clear Calc Estimated GFR Glucose POC Capillary Glucose 168 H 119 H Uric Acid Calcium Total Bilirubin AST ALT Alkaline Phosphatase Total Protein Albumin U Random Total Protein 294 Ur 24 Hour Volume 2550 Urine Creatinine 70.4 Creatinine Clearance 226.1 H Ur Total Protein 24 Hr 7497 H 02/19/22 02/20/22 02/20/22 22:04 05:14 05:14 WBC 8.3 RBC 3.49 L Hgb 10.7 L Hct 31.4 L MCV 90.0 MCH 30.7 MCHC 34.1 RDW 13.0 Plt Count 184 MPV 11.5 H Sodium 134 L Potassium 4.1 Chloride 110 H Carbon Dioxide 17 L Anion Gap 7 L BUN 11 Creatinine 0.60 L Estim Creat Clear Calc 116 Estimated GFR > 60 Glucose 119 H POC Capillary Glucose 162 H Uric Acid 6.8 Calcium 8.1 L Total Bilirubin 0.2 AST 105 H ALT 140 H Alkaline Phosphatase 112 Total Protein 6.0 L Albumin 3.3 L U Random Total Protein Ur 24 Hour Volume Urine Creatinine Creatinine Clearance Ur Total Protein 24 Hr OB - PN A/P Assessment and Plan (1) 33 weeks gestation of : Code(s): Z3A.33 - 33 weeks gestation of Status: Acute (2) Preeclampsia: Code(s): O14.90 - Unspecified pre-eclampsia, unspecified trimester Status: Acute Assessment and Plan: continue to monitor blood pressure and symptomatology. (3) Elevated liver function tests: Code(s): R79.89 - Other specified abnormal findings of blood chemistry Status: Acute Assessment and Plan: Levels continue to trend up. Denies right upper quadrant pain symptomatically and/or on exam. (4) GDM (gestational diabetes mellitus): Code(s): O24.419 - Gestational diabetes mellitus in , unspecified control Status: Acute (5) Previous section: Code(s): Z98.891 - History of uterine scar from previous surgery Status: Acute (6) Proteinuria complicating in third trimester: Code(s): O12.13 - Gestational proteinuria, third trimester Status: Acute Assessment and Plan: Proteinuria noted on 24hour urine. As an independent marker while this is significant as an independent very not currently considered an indication for delivery. Time Spent With Patient Time: Total time spent is greater than 50% in coordination of care (as documented) at patient's floor/unit and/or counseling patient: lengthy discussion with patient again this morning regarding timing of delivery and likely that this will happen within the next week. She has received steroids which is beneficial and will be 48hours from that today. At this point her blood pressures and symptoms are not significant enough for delivery. We will continue to monitor all of the above. Have also discussed that if she does need delivery in the next week she most likely would be transferred to a higher level institution as she will be less than 34 weeks.
[2022-02-20 11:02] LABS: Glucose Point of Care 150 mg/dl (65-105)
[2022-02-20 14:39] LABS: Glucose Point of Care 101 mg/dl (65-105)
[2022-02-20 19:45] LABS: Glucose Point of Care 107 mg/dl (65-105)
[2022-02-20 22:14] LABS: Glucose Point of Care 109 mg/dl (65-105)
[2022-02-21] VITALS (7 sets, daily range): BP systolic 135–153; BP diastolic 82–86; PULSE 62–122; RESP 16; TEMP 36.1–37.3; O2SAT 97
[2022-02-21 05:18] LABS: Hematocrit 30.7 % (37.0-47.0); Hemoglobin 9.9 g/dL (12.0-15.0); Mean Corpuscular HGB Conc 32.2 g/dl (32-36); Mean Corpuscular Hemoglobin 30.1 pg (26-34); Mean Corpuscular Volume 93.3 fl (80-100); Mean Platelet Volume 11.5 fl (7.4-10.4); Platelet Count Result 177 k/mm3 (150-375); Red Blood Count 3.29 M/mm3 (4.2-5.4); Red Cell Distribution Width 13.2 % (11.5-14.5); White Blood Count 6.9 K/mm3 (4.5-10.0)
[2022-02-21 05:28] LABS: Alanine Aminotransferase 136 U/L (4-35); Alkaline Phosphatase 92 U/L (38-126); Anion Gap 7 mmol/L (8-16); Aspartate Amino Transferase 98 U/L (14-36); Bilirubin,Total < 0.1 mg/dL (0.2-1.3); Blood Urea Nitrogen 12 mg/dL (7-17); Carbon Dioxide 20 mmol/L (22-30); Chloride 111 mmol/L (98-107); Estimated CRCL calculation 116 ml/min; Estimated Glomerular Filt Rate > 60; Glucose 82 mg/dL (65-110); Sodium 138 mmol/L (137-145); Uric Acid 6.4 mg/dL (2.5-7.5)
--- NOTE | 2022-02-21 10:05 | PM.IMHP ---
H&P: HPI History of Present Illness Date/Time: 02/18/22 1200 Date of admit: Patient not seen this date. Patient is a 36 yo A1 admitted at 32 5/7 wks. Patient was seen for her follow up u/s at [facility] the day prior to admission and was noted to have a slightly elevated BP so sent for PI labs as outpatient. Labs received the day of admit and abnormal. The patient was called to have them repeated and to do 24 hour urine and monitor at L&D. Patient denied any PIH symptoms at that time. Labs remained about the same as the day before with elevated LFTs, low normal platelets, and elevated uric acid. Patient checked out that pm to Dr. Coulter to care for during the weekend. 24 hour urine in progress and steroids given. complicated by COVID with placentamegaly changes per MFM at [facility]. Initially concerned for an accreta but at the follow up u/s 24 weeks there was a clear deliniation along the entire placental insertion. initially a twin with twin demise at 9 weeks. Also, GDMA2 with recent addition of NPH at for elevated fasting glucose levels. labs O+, rubella immune, RPR -, HBSAg -, HIV -. Chief Complaint: PIH Review of Systems Eyes: Eyes: Denies seeing flashes and Denies spots in vision Genitourinary: Genitourinary: Reports other (good movement) Neurologic: Denies headache(s) [facility] Past Medical History Medical History (Updated 02/21/22 @ 10:19 by Morena Ann MD) GDM (gestational diabetes mellitus) Surgical History Surgical History (Updated 02/21/22 @ 10:19 by Morena Ann MD) H/O: x 5 GDMx 3 Social History Social History (System 01/26/22 @ 13:55 by Dulce Callahan) Smoking status: Never smoker Second hand tobacco smoke exposure: No Alcohol intake: current Substance use: never Gender identity (if verbalized by the patient): Female Spiritual care concerns: No Meds Home Medications and Allergies Home Medications Medication Instructions Recorded Confirmed Type 1 tablet PO DAILY 06/12/20 02/19/22 History ergocalciferol (vitamin D2) 1,250 mcg PO DAILY 06/12/20 02/19/22 History hydroxyprogest(PF)(preg presv) 275 mg SUBCUT WEEKLY 12/30/21 02/19/22 History [[place] (PF)] insulin NPH isoph U-100 human 6 unit SUBCUT HS 02/19/22 02/19/22 History [Humulin N NPH U-100 Insulin] Allergies Allergy/AdvReac Type Severity Reaction Status Date / Time No Known Allergies Allergy Unverified 01/26/22 13:55 Vital Signs Vital Signs - 24 hr 02/20/22 10:59 02/20/22 13:16 02/20/22 15:39 Temperature Pulse Rate 95 83 82 Blood Pressure 134/81 144/81 H 142/82 H 02/20/22 15:40 02/20/22 19:01 02/20/22 19:39 Temperature 99 F Pulse Rate 75 73 Blood Pressure 157/90 H 141/78 H 02/20/22 22:02 02/20/22 22:15 02/21/22 01:56 Temperature Pulse Rate 69 66 62 Blood Pressure 152/91 H 148/86 H 142/82 H 02/21/22 05:08 02/21/22 06:36 02/21/22 06:40 Temperature 99.1 F Pulse Rate 68 67 Blood Pressure 135/82 153/82 H Exam Narrative: no done by me as not seen this date Per RN fundus soft, nt no RUQ pain +2 DTR's FHTs category I H&P: Results Labs Labs: Short CBC 02/21/22 Range/Units 05:08 WBC 6.9 (4.5-10.0) K/mm3 Hgb 9.9 L (12.0-15.0) g/dL Hct 30.7 L (37.0-47.0) % Plt Count 177 (150-375) k/mm3 BMP 02/21/22 05:08 Sodium 138 Potassium 4.0 Chloride 111 H Carbon Dioxide 20 L BUN 12 Creatinine 0.60 L Glucose 82 Calcium 8.0 L Liver Function 02/21/22 Range/Units 05:08 Total Bilirubin < 0.1 L (0.2-1.3) mg/dL AST 98 H (14-36) U/L ALT 136 H (4-35) U/L Alkaline Phosphatase 92 (38-126) U/L Albumin 3.0 L (3.5-5.1) g/dL Assessment and Plan Assessment and plan (1) 33 weeks gestation of : Code(s): Z3A.33 - 33 weeks gestation of Status: Acute Assessment and Plan: 32 03/26 on admit given f
--- NOTE | 2022-02-21 10:22 | PM.OBPNVD ---
OB - PN: Subj Subjective Date/time seen: 02/21/22 10:22 Patient comments: no complaints and other (No PIH sx) OB - PN: Obj Data Labs CBC & Chem 7: 02/21/22 05:08 02/21/22 05:08 Labs: Laboratory Results - last 24 hr 02/20/22 02/20/22 02/20/22 10:57 14:35 19:39 WBC RBC Hgb Hct MCV MCH MCHC RDW Plt Count MPV Sodium Potassium Chloride Carbon Dioxide Anion Gap BUN Creatinine Estim Creat Clear Calc Estimated GFR Glucose POC Capillary Glucose 150 H 101 107 H Uric Acid Calcium Total Bilirubin AST ALT Alkaline Phosphatase Total Protein Albumin 02/20/22 02/21/22 02/21/22 22:07 05:08 05:08 WBC 6.9 RBC 3.29 L Hgb 9.9 L Hct 30.7 L MCV 93.3 MCH 30.1 MCHC 32.2 RDW 13.2 Plt Count 177 MPV 11.5 H Sodium 138 Potassium 4.0 Chloride 111 H Carbon Dioxide 20 L Anion Gap 7 L BUN 12 Creatinine 0.60 L Estim Creat Clear Calc 116 Estimated GFR > 60 Glucose 82 POC Capillary Glucose 109 H Uric Acid 6.4 Calcium 8.0 L Total Bilirubin < 0.1 L AST 98 H ALT 136 H Alkaline Phosphatase 92 Total Protein 6.0 L Albumin 3.0 L Imaging Radiologist's impression: Impressions Obstetrics US/Biophysical Profile 02/21/22 08:23 IMPRESSION: 1. Single living fetus in vertex presentation. 2. Biophysical profile 6 out of 8. OB - PN A/P Assessment and Plan (1) 33 weeks gestation of : Code(s): Z3A.33 - 33 weeks gestation of Status: Acute Assessment and Plan: s/p steroids Dopplers and KSENIA q week (2) Preeclampsia: Code(s): O14.90 - Unspecified pre-eclampsia, unspecified trimester Status: Acute Assessment and Plan: Close observation. Change labs to QOD. (3) GDM, class A2: Code(s): O24.419 - Gestational diabetes mellitus in , unspecified control Status: Acute Assessment and Plan: continue diabetic diet and accuchecks and adjust insulin as needed improving post steroids (4) H/O: : Code(s): Z98.891 - History of uterine scar from previous surgery Status: Acute Assessment and Plan: csection with BTL for delivery Time Spent With Patient Time: Total time spent is greater than 50% in coordination of care (as documented) at patient's floor/unit and/or counseling patient: Exam GI: GI Palp: No abdominal tenderness and Yes Other GI palpation findings present (no RUQ tenderness; fundus soft, nt) Extrem: Left upper extremity: edema Right lower extremity: no edema Left lower extremity: no edema
[2022-02-21 17:35] LABS: Glucose Point of Care 108 mg/dl (65-105)
[2022-02-21 20:36] LABS: Glucose Point of Care 107 mg/dl (65-105)
[2022-02-21] MEDS: INSULIN HUMAN NPH (*BKC) 100 UNITS/ML 6 UNITS SUB-Q (21:31)
[2022-02-22] VITALS (13 sets, daily range): BP systolic 138–161; BP diastolic 84–95; PULSE 69–85; RESP 19; TEMP 36.6–37.2; O2SAT 99
[2022-02-22 05:15] LABS: Glucose Point of Care 76 mg/dl (65-105)
--- NOTE | 2022-02-22 07:59 | PM.OBPNVD ---
OB - PN: Subj Subjective Date/time seen: 02/22/22 07:59 Patient comments: no complaints and other (No PIH sx) OB - PN: Obj Data Labs CBC & Chem 7: 02/21/22 05:08 02/21/22 05:08 Labs: Laboratory Results - last 24 hr 02/21/22 02/21/22 02/22/22 14:43 20:23 05:11 POC Capillary Glucose 108 H 107 H 76 Imaging Radiologist's impression: Impressions Obstetrics US/Biophysical Profile 02/21/22 08:23 IMPRESSION: 1. Single living fetus in vertex presentation. 2. Biophysical profile 6 out of 8. OB - PN A/P Assessment and Plan (1) 33 weeks gestation of : Code(s): Z3A.33 - 33 weeks gestation of Status: Acute Assessment and Plan: 33 2/7 wks (2) Preeclampsia: Code(s): O14.90 - Unspecified pre-eclampsia, unspecified trimester Status: Acute Assessment and Plan: stable continue care labs tomorrow dopplers and KSENIA (3) GDM, class A2: Code(s): O24.419 - Gestational diabetes mellitus in , unspecified control Status: Acute Assessment and Plan: continue diet and insulin Time Spent With Patient Time: Total time spent is greater than 50% in coordination of care (as documented) at patient's floor/unit and/or counseling patient: Exam Narrative: fundus soft, nt RUQ nt FHTs reactive
[2022-02-22] MEDS: ACETAMINOPHEN 500 MG TABLET 1000 MG PO ×2 (08:11→23:16)
[2022-02-22 10:57] LABS: Glucose Point of Care 136 mg/dl (65-105)
[2022-02-22 15:20] LABS: Glucose Point of Care 135 mg/dl (65-105)
[2022-02-22 19:43] LABS: Glucose Point of Care 107 mg/dl (65-105)
[2022-02-22] MEDS: INSULIN HUMAN NPH (*BKC) 100 UNITS/ML 6 UNITS SUB-Q (22:48)
[2022-02-23] VITALS (83 sets, daily range): BP systolic 122–164; BP diastolic 66–96; PULSE 62–130; RESP 16–20; TEMP 36.8–37.1; O2SAT 94–100
[2022-02-23 05:45] LABS: Basophils Percent Auto 0.2 % (0.2-1.2); Eosinophils Absolute Auto 0.1 K/mm3 (0-0.3); Eosinophils Percent Auto 1.2 % (0-4.4); Hemoglobin 10.4 g/dL (12.0-15.0); Immature Granulocyte Absolute 0.04 K/mm3 (0.00-0.031); Immature Granulocyte Percent A 0.7 % (0-0.5); Lymphocytes Absolute Auto 1.63 K/mm3 (0.9-3.2); Lymphocytes Percent Auto 27.2 % (18.3-44.2); Mean Corpuscular HGB Conc 32.5 g/dl (32-36); Mean Corpuscular Hemoglobin 29.8 pg (26-34); Mean Corpuscular Volume 91.7 fl (80-100); Mean Platelet Volume 11.6 fl (7.4-10.4); Monocytes Absolute Auto 0.5 K/mm3 (0.1-0.6); Monocytes Percent Auto 7.7 % (2.6-8.5); Neutrophils Absolute Auto 3.8 K/mm3 (1.3-6.7); Platelet Count Result 178 k/mm3 (150-375); Red Blood Count 3.49 M/mm3 (4.2-5.4); Red Cell Distribution Width 12.9 % (11.5-14.5)
[2022-02-23 05:59] LABS: Alanine Aminotransferase 89 U/L (4-35); Albumin Level 2.9 g/dL (3.5-5.1); Alkaline Phosphatase 91 U/L (38-126); Anion Gap 4 mmol/L (8-16); Aspartate Amino Transferase 48 U/L (14-36); Bilirubin,Total 0.1 mg/dL (0.2-1.3); Blood Urea Nitrogen 10 mg/dL (7-17); Calcium 7.7 mg/dL (8.4-10.2); Carbon Dioxide 20 mmol/L (22-30); Chloride 112 mmol/L (98-107); Estimated CRCL calculation 137 ml/min; Estimated Glomerular Filt Rate > 60; Glucose 71 mg/dL (65-110); Potassium 4.1 mmol/L (3.4-5.0); Sodium 136 mmol/L (137-145); Uric Acid 6.1 mg/dL (2.5-7.5)
--- NOTE | 2022-02-23 07:27 | PC.NURSE ---
Dr. Ann on unit for morning rounds and informed of improvement in labs, but BP's are trending higher.
--- NOTE | 2022-02-23 07:37 | PC.NURSE ---
Addendum entered by Jimena Campa RN 02/23/22 08:03: Dr. Ann also viewed last 2 NST's from [facility] tracings. Original Note: Dr. Ann in to see pt and aware of latest BP. MD discussed plan of care with pt including adding Labetalol 100 mg BID. approved pt's other home meds also. Pt doesn't want to wear sequential hose and agrees to do leg exercises hourly while awake.
--- NOTE | 2022-02-23 07:40 | PM.OBPNVD ---
OB - PN: Subj Subjective Date/time seen: 02/23/22 07:40 Interval history: No PIH sx. Good FM. OB - PN: Obj Data Labs CBC & Chem 7: 02/23/22 05:31 02/23/22 05:31 Labs: Laboratory Results - last 24 hr 02/22/22 02/22/22 02/22/22 10:54 15:15 19:40 WBC RBC Hgb Hct MCV MCH MCHC RDW Plt Count MPV Immature Gran % (Auto) Neut % (Auto) Lymph % (Auto) [place] % (Auto) Eos % (Auto) Baso % (Auto) Lymph # (Auto) [place] # (Auto) Eos # (Auto) Baso # (Auto) Abs Immat Gran (auto) Absolute Neuts (auto) Absolute Nucleated RBC Nucleated RBC % Sodium Potassium Chloride Carbon Dioxide Anion Gap BUN Creatinine Estim Creat Clear Calc Estimated GFR Glucose POC Capillary Glucose 136 H 135 H 107 H Uric Acid Calcium Total Bilirubin AST ALT Alkaline Phosphatase Total Protein Albumin 02/23/22 02/23/22 05:31 05:31 WBC 6.0 RBC 3.49 L Hgb 10.4 L Hct 32.0 L MCV 91.7 MCH 29.8 MCHC 32.5 RDW 12.9 Plt Count 178 MPV 11.6 H Immature Gran % (Auto) 0.7 H Neut % (Auto) 63.0 Lymph % (Auto) 27.2 [place] % (Auto) 7.7 Eos % (Auto) 1.2 Baso % (Auto) 0.2 Lymph # (Auto) 1.63 [place] # (Auto) 0.5 Eos # (Auto) 0.1 Baso # (Auto) 0.0 Abs Immat Gran (auto) 0.04 H Absolute Neuts (auto) 3.8 Absolute Nucleated RBC 0.0 Nucleated RBC % 0.0 Sodium 136 L Potassium 4.1 Chloride 112 H Carbon Dioxide 20 L Anion Gap 4 L BUN 10 Creatinine 0.50 L Estim Creat Clear Calc 137 Estimated GFR > 60 Glucose 71 POC Capillary Glucose Uric Acid 6.1 Calcium 7.7 L Total Bilirubin 0.1 L AST 48 H ALT 89 H Alkaline Phosphatase 91 Total Protein 6.0 L Albumin 2.9 L OB - PN A/P Assessment and Plan (1) 33 weeks gestation of : Code(s): Z3A.33 - 33 weeks gestation of Status: Acute Assessment and Plan: s/p steroids NST reactive EFW 1800 g (15%) on 02/18 (2) Preeclampsia: Code(s): O14.90 - Unspecified pre-eclampsia, unspecified trimester Status: Acute Assessment and Plan: Labs improved. Recheck 48 hours BP's trending up-will add Labetalol 100mg BID (3) GDM, class A2: Code(s): O24.419 - Gestational diabetes mellitus in , unspecified control Status: Acute Assessment and Plan: Accuchecks good. Continue insulin and diet. Time Spent With Patient Time: Total time spent is greater than 50% in coordination of care (as documented) at patient's floor/unit and/or counseling patient: Exam Narrative: Fundus soft, nt no RUQ pain no edema
[2022-02-23] MEDS: LABETALOL HCL 100 MG TABLET PO ×3 (07:56→21:17)
[2022-02-23] MEDS: MULTIVIT/MIN/PREN/FOL AC/IRON TABLET 1 TAB PO (08:42)
[2022-02-23] MEDS: ERGOCALCIFEROL 50,000 UNIT CAPSULE 50000 UNITS PO (08:42)
[2022-02-23] MEDS: FERROUS SULFATE 324 MG TABLET PO (08:42)
[2022-02-23 10:33] LABS: Glucose Point of Care 118 mg/dl (65-105)
[2022-02-23 15:22] LABS: Glucose Point of Care 100 mg/dl (65-105)
[2022-02-23] MEDS: ACETAMINOPHEN 500 MG TABLET 1000 MG PO (16:39)
--- NOTE | 2022-02-23 17:20 | PC.NURSE ---
Dr. Ann returned page and informed of increase in BP's since 1629 when NST was started. Pt has a headache, but denies visual changes, epigastric/RUQ pain, no edema and DTR's 2 + and no clonus. NST not reactive yet and one 15 sec variable down to 108-110 noted. Order received to change Labetalol to q8 hr with a dose now.
[2022-02-23 19:41] LABS: Glucose Point of Care 110 mg/dl (65-105)
--- NOTE | 2022-02-23 21:06 | PC.NURSE ---
Dr. Ann informed of increase in BP's. Orders received.
[2022-02-23] MEDS: INSULIN HUMAN NPH (*BKC) 100 UNITS/ML 6 UNITS SUB-Q (21:15)
--- NOTE | 2022-02-23 22:18 | PC.NURSE ---
monitor applied for NST. Pt c/o mild headache. Informed it is almost time that I can give her Tylenol again.
--- NOTE | 2022-02-23 23:30 | PC.NURSE ---
Pt resting quietly. States headache is no resolved.
[2022-02-24] VITALS (13 sets, daily range): BP systolic 142–167; BP diastolic 71–95; PULSE 74–84; O2SAT 99
[2022-02-24] MEDS: LABETALOL HCL 100 MG TABLET 200 MG PO ×3 (02:14→18:20)
--- NOTE | 2022-02-24 02:38 | PC.NURSE ---
Pt sleeping Vital signs as noted. Labetolol given per order. Voices no complaints.
--- NOTE | 2022-02-24 07:04 | PM.OBPNVD ---
OB - PN: Subj Subjective Date/time seen: 02/24/22 07:04 Interval history: No PIH sx. Good FM. Patient comments: no complaints and other (mild headache yesterday resolved with tylenol; no PIH sx otherwise) OB - PN: Obj Data Labs CBC & Chem 7: 02/23/22 05:31 02/23/22 05:31 Labs: Laboratory Results - last 24 hr 02/23/22 02/23/22 02/23/22 09:52 15:18 19:30 POC Capillary Glucose 118 H 100 110 H OB - PN A/P Assessment and Plan (1) 33 weeks gestation of : Code(s): Z3A.33 - 33 weeks gestation of Status: Acute Assessment and Plan: 33 4 weeks s/p steroids U/s today for Dopplers and KSENIA 1800 g EFW on 02/18 (2) Preeclampsia: Code(s): O14.90 - Unspecified pre-eclampsia, unspecified trimester Status: Acute Assessment and Plan: BP's stable on Labetalol 200mg Q 8 Good i/o's Labs tomorrow (3) GDM, class A2: Code(s): O24.419 - Gestational diabetes mellitus in , unspecified control Status: Acute Assessment and Plan: If FBS >90 this am will increase hs insulin. Time Spent With Patient Time: Total time spent is greater than 50% in coordination of care (as documented) at patient's floor/unit and/or counseling patient: Exam Narrative: fundus soft, nt no RUQ pain, abdomen soft FHTs reactive no edema
[2022-02-24] MEDS: ACETAMINOPHEN 500 MG TABLET 1000 MG PO ×2 (07:35→14:52)
[2022-02-24] MEDS: MULTIVIT/MIN/PREN/FOL AC/IRON TABLET 1 TAB PO (07:35)
[2022-02-24] MEDS: FERROUS SULFATE 324 MG TABLET PO (07:35)
[2022-02-24 07:40] LABS: Glucose Point of Care 79 mg/dl (65-105)
[2022-02-24 11:00] LABS: Glucose Point of Care 121 mg/dl (65-105)
[2022-02-24 14:36] LABS: Glucose Point of Care 116 mg/dl (65-105)
--- NOTE | 2022-02-24 17:46 | LDADM ---
This patient, Rosalba Mathis, was admitted to [facility] on 02/21/22 at 10:07. Plans for labor, pain management and were discussed with patient. Patient/family oriented to hospital policies and general routines including ID bracelet, bed and alarms, visiting hours, pain management, procedures, bathroom and other care routines, personal items, smoking policy, room service/diet and guest tray routines, infant security routines, and visiting hours. Patient/Family are encouraged to report perceived risks to care and to ask questions if they do not understand what they are told or what they should do. See OBIX for further documentation.
[2022-02-24] MEDS: INSULIN HUMAN NPH (*BKC) 100 UNITS/ML 6 UNITS SUB-Q (22:08)
[2022-02-24 22:14] LABS: Glucose Point of Care 129 mg/dl (65-105)
--- NOTE | 2022-02-24 22:34 | PC.NURSE ---
223- called Dr. Ann- blood sugar reviewed. BP reviewed. order to check BP every 4 hours instead of every 2 while awake. will continue to monitor pt and call if questions/concerns.
[2022-02-25] VITALS (15 sets, daily range): BP systolic 141–163; BP diastolic 79–91; PULSE 69–87; RESP 16; TEMP 36.8; O2SAT 98–99
[2022-02-25] MEDS: LABETALOL HCL 100 MG TABLET 200 MG PO ×3 (02:06→17:59)
[2022-02-25] MEDS: CALCIUM CARBONATE (TUMS) 500 MG (200 MG ELEMENTAL) PO ×2 (03:04→13:18)
[2022-02-25 04:54] LABS: Hematocrit 28.7 % (37.0-47.0); Hemoglobin 9.6 g/dL (12.0-15.0); Mean Corpuscular HGB Conc 33.4 g/dl (32-36); Mean Corpuscular Hemoglobin 30.4 pg (26-34); Mean Corpuscular Volume 90.8 fl (80-100); Mean Platelet Volume 11.2 fl (7.4-10.4); Platelet Count Result 175 k/mm3 (150-375); Red Blood Count 3.16 M/mm3 (4.2-5.4); Red Cell Distribution Width 12.9 % (11.5-14.5); White Blood Count 6.4 K/mm3 (4.5-10.0)
[2022-02-25 05:08] LABS: Alanine Aminotransferase 44 U/L (4-35); Albumin Level 2.6 g/dL (3.5-5.1); Alkaline Phosphatase 89 U/L (38-126); Anion Gap 3 mmol/L (8-16); Aspartate Amino Transferase 27 U/L (14-36); Bilirubin,Total < 0.1 mg/dL (0.2-1.3); Blood Urea Nitrogen 8 mg/dL (7-17); Calcium 7.9 mg/dL (8.4-10.2); Carbon Dioxide 21 mmol/L (22-30); Chloride 111 mmol/L (98-107); Estimated CRCL calculation 138 ml/min; Estimated Glomerular Filt Rate > 60; Glucose 101 mg/dL (65-110); Potassium 3.7 mmol/L (3.4-5.0); Sodium 135 mmol/L (137-145); Uric Acid 6.5 mg/dL (2.5-7.5)
--- NOTE | 2022-02-25 07:44 | PM.OBPNVD ---
OB - PN: Subj Subjective Date/time seen: 02/25/22 07:44 Interval history: No PIH sx. Good FM. OB - PN: Obj Data Labs CBC & Chem 7: 02/25/22 04:47 02/25/22 04:47 Labs: Laboratory Results - last 24 hr 02/24/22 02/24/22 02/24/22 10:58 14:32 22:07 WBC RBC Hgb Hct MCV MCH MCHC RDW Plt Count MPV Sodium Potassium Chloride Carbon Dioxide Anion Gap BUN Creatinine Estim Creat Clear Calc Estimated GFR Glucose POC Capillary Glucose 121 H 116 H 129 H Uric Acid Calcium Total Bilirubin AST ALT Alkaline Phosphatase Total Protein Albumin 02/25/22 02/25/22 04:47 04:47 WBC 6.4 RBC 3.16 L Hgb 9.6 L Hct 28.7 L MCV 90.8 MCH 30.4 MCHC 33.4 RDW 12.9 Plt Count 175 MPV 11.2 H Sodium 135 L Potassium 3.7 Chloride 111 H Carbon Dioxide 21 L Anion Gap 3 L BUN 8 Creatinine 0.50 L Estim Creat Clear Calc 138 Estimated GFR > 60 Glucose 101 POC Capillary Glucose Uric Acid 6.5 Calcium 7.9 L Total Bilirubin < 0.1 L AST 27 ALT 44 H Alkaline Phosphatase 89 Total Protein 5.0 L Albumin 2.6 L Imaging Radiologist's impression: Impressions Doppler Study 02/24/22 08:05 IMPRESSION: 1. Single living fetus in breech presentation with heart rate of 130 bpm. 2. Normal amniotic fluid index of 16.9 cm. 3. Normal umbilical artery peak systolic to diastolic ratio. Obstetrics Ultrasound 02/24/22 08:05 IMPRESSION: 1. Single living fetus in breech presentation with heart rate of 130 bpm. 2. Normal amniotic fluid index of 16.9 cm. 3. Normal umbilical artery peak systolic to diastolic ratio. OB - PN A/P Assessment and Plan (1) 33 weeks gestation of : Code(s): Z3A.33 - 33 weeks gestation of Status: Acute Assessment and Plan: 33 5/7 wks s/p steroids normal KSENIA and dopplers yesterday EFW 1800 g 02/18 (2) GDM, class A2: Code(s): O24.419 - Gestational diabetes mellitus in , unspecified control Status: Acute Assessment and Plan: Good control. Continue diet and insulin (3) Preeclampsia: Code(s): O14.90 - Unspecified pre-eclampsia, unspecified trimester Status: Acute Assessment and Plan: Stable BP. Labs improved. No Sx Time Spent With Patient Time: Total time spent is greater than 50% in coordination of care (as documented) at patient's floor/unit and/or counseling patient: Exam Narrative: fundus soft abdomen nontender ext nt FHTs reactive
[2022-02-25] MEDS: MULTIVIT/MIN/PREN/FOL AC/IRON TABLET 1 TAB PO (08:13)
[2022-02-25] MEDS: FERROUS SULFATE 324 MG TABLET PO (08:13)
[2022-02-25 08:17] LABS: Glucose Point of Care 70 mg/dl (65-105)
[2022-02-25 10:25] LABS: Glucose Point of Care 98 mg/dl (65-105)
--- NOTE | 2022-02-25 11:31 | PC.NURSE ---
Dr. Ann informed NST not reactive. discussed that pt had a reactive NST during the night and to just keep pt on monitor until she is reactive today. No need for BPP at this time.
[2022-02-25 14:04] LABS: Glucose Point of Care 103 mg/dl (65-105)
[2022-02-25 19:10] LABS: Glucose Point of Care 88 mg/dl (65-105)
[2022-02-25] MEDS: INSULIN HUMAN NPH (*BKC) 100 UNITS/ML 6 UNITS SUB-Q (21:59)
[2022-02-25 22:04] LABS: Glucose Point of Care 84 mg/dl (65-105)
[2022-02-26] VITALS (18 sets, daily range): BP systolic 133–154; BP diastolic 80–93; PULSE 67–88; TEMP 36.4; O2SAT 99–100
[2022-02-26] MEDS: LABETALOL HCL 100 MG TABLET 200 MG PO ×3 (01:59→18:01)
--- NOTE | 2022-02-26 02:09 | PC.NURSE ---
pt states that she just noticed a spot in her left eye... no spots in right eye. no other symptoms.
[2022-02-26] MEDS: CALCIUM CARBONATE (TUMS) 500 MG (200 MG ELEMENTAL) PO ×2 (02:47→22:12)
--- NOTE | 2022-02-26 02:58 | PC.NURSE ---
0251- called Dr. Vo ( superintendent transportation for Dr. Ann)- reveiwed new sxs of black spot in left eye. no headache, no RUQ pain, no other sxs. orders to draw PIH labs and recheck BP at 0400. will call if abnormal lab results or worsening sxs.
[2022-02-26 03:27] LABS: Basophils Percent Auto 0.3 % (0.2-1.2); Eosinophils Absolute Auto 0.1 K/mm3 (0-0.3); Eosinophils Percent Auto 0.7 % (0-4.4); Hematocrit 30.8 % (37.0-47.0); Hemoglobin 10.2 g/dL (12.0-15.0); Immature Granulocyte Absolute 0.09 K/mm3 (0.00-0.031); Immature Granulocyte Percent A 1.2 % (0-0.5); Lymphocytes Absolute Auto 1.94 K/mm3 (0.9-3.2); Mean Corpuscular HGB Conc 33.1 g/dl (32-36); Mean Corpuscular Hemoglobin 30.3 pg (26-34); Mean Corpuscular Volume 91.4 fl (80-100); Mean Platelet Volume 11.5 fl (7.4-10.4); Monocytes Absolute Auto 0.5 K/mm3 (0.1-0.6); Monocytes Percent Auto 7.1 % (2.6-8.5); Neutrophils Absolute Auto 4.8 K/mm3 (1.3-6.7); Neutrophils Percent Auto 64.7 % (45.5-73.1); Nucleated Red Blood Cells Perc 0.4 % (0.0-0.2); Platelet Count Result 171 k/mm3 (150-375); Red Blood Count 3.37 M/mm3 (4.2-5.4); White Blood Count 7.5 K/mm3 (4.5-10.0)
[2022-02-26 03:37] LABS: Alanine Aminotransferase 38 U/L (4-35); Albumin Level 2.9 g/dL (3.5-5.1); Alkaline Phosphatase 87 U/L (38-126); Anion Gap 4 mmol/L (8-16); Aspartate Amino Transferase 28 U/L (14-36); Bilirubin,Total 0.2 mg/dL (0.2-1.3); Blood Urea Nitrogen 12 mg/dL (7-17); Calcium 8.4 mg/dL (8.4-10.2); Carbon Dioxide 21 mmol/L (22-30); Chloride 109 mmol/L (98-107); Estimated CRCL calculation 117 ml/min; Estimated Glomerular Filt Rate > 60; Glucose 76 mg/dL (65-110); Potassium 3.9 mmol/L (3.4-5.0); Sodium 134 mmol/L (137-145); Uric Acid 6.9 mg/dL (2.5-7.5)
--- NOTE | 2022-02-26 03:40 | PC.NURSE ---
0245- pt c/o heartburn. requesting [facility].
[2022-02-26 04:55] LABS: Creatinine Urine 33.3 mg/dL
[2022-02-26 05:09] LABS: Total Protein Urine Random 411 mg/dL; Ur Ttl Prot Creatinine Ratio 12.34 mg/mg (0-0.20)
--- NOTE | 2022-02-26 05:21 | PC.NURSE ---
0516- called Dr. Vo (front desk officer for Dr. Ann). labs reviewed. BP reviewed. Dr. Vo to come in to evaluate pt.
--- NOTE | 2022-02-26 05:57 | PC.NURSE ---
0556- Dr. Vo on unit to evaluate pt.
--- NOTE | 2022-02-26 06:26 | PM.OBPNVD ---
OB - PN: Subj Subjective Date/time seen: 02/26/22 06:26 HD# 9 Rosalba is a 36yo @ 33.6wks admitted with pre-eclampsia. This morning she reports feeling well this morning. No MATHEWS, CP, SOB, RUQ pain. Her blood pressures have been in the moderate range; no severe ranges in 24hrs. She reports blurry vision spot in her left peripheral vision but reports she has not taken her contacts out since being here and has seasonal allergies (not taking anything for that)-- no black spots, fireworks. She reports good movement. No ctx, vb, lof. She is tolerating regular diet. Normal bowel/bladder function. Interval history: Her is complicated by: - Previous c/s x5 - Placentomegaly; MFM ruled out MAP - Sterilization requested - Twin w/ demise of twin B - Pre-eclampsia with severe proteinuria (~7500g); on labetalol 200mg q8h PO - Covid infection in Nov 2021 - A2GDM on PM insulin - AMA - S/p ANCS 02/18 & 02/19 OB - PN: Obj Data Labs CBC & Chem 7: 02/26/22 03:08 02/26/22 03:08 Labs: Laboratory Results - last 24 hr 02/25/22 02/25/22 02/25/22 07:51 10:20 13:59 WBC RBC Hgb Hct MCV MCH MCHC RDW Plt Count MPV Immature Gran % (Auto) Neut % (Auto) Lymph % (Auto) [place] % (Auto) Eos % (Auto) Baso % (Auto) Lymph # (Auto) [place] # (Auto) Eos # (Auto) Baso # (Auto) Abs Immat Gran (auto) Absolute Neuts (auto) Absolute Nucleated RBC Nucleated RBC % Sodium Potassium Chloride Carbon Dioxide Anion Gap BUN Creatinine Estim Creat Clear Calc Estimated GFR Glucose POC Capillary Glucose 70 98 103 Uric Acid Calcium Total Bilirubin AST ALT Alkaline Phosphatase Total Protein Albumin U Random Total Protein Urine Creatinine Protein/Creat Ratio 2 02/25/22 02/25/22 02/26/22 19:05 21:59 03:07 WBC RBC Hgb Hct MCV MCH MCHC RDW Plt Count MPV Immature Gran % (Auto) Neut % (Auto) Lymph % (Auto) [place] % (Auto) Eos % (Auto) Baso % (Auto) Lymph # (Auto) [place] # (Auto) Eos # (Auto) Baso # (Auto) Abs Immat Gran (auto) Absolute Neuts (auto) Absolute Nucleated RBC Nucleated RBC % Sodium Potassium Chloride Carbon Dioxide Anion Gap BUN Creatinine Estim Creat Clear Calc Estimated GFR Glucose POC Capillary Glucose 88 84 Uric Acid Calcium Total Bilirubin AST ALT Alkaline Phosphatase Total Protein Albumin U Random Total Protein 411 Urine Creatinine 33.3 Protein/Creat Ratio 2 12.34 H 02/26/22 02/26/22 03:08 03:08 WBC 7.5 RBC 3.37 L Hgb 10.2 L Hct 30.8 L MCV 91.4 MCH 30.3 MCHC 33.1 RDW 13.0 Plt Count 171 MPV 11.5 H Immature Gran % (Auto) 1.2 H Neut % (Auto) 64.7 Lymph % (Auto) 26.0 [place] % (Auto) 7.1 Eos % (Auto) 0.7 Baso % (Auto) 0.3 Lymph # (Auto) 1.94 [place] # (Auto) 0.5 Eos # (Auto) 0.1 Baso # (Auto) 0.0 Abs Immat Gran (auto) 0.09 H Absolute Neuts (auto) 4.8 Absolute Nucleated RBC 0.0 Nucleated RBC % 0.4 H Sodium 134 L Potassium 3.9 Chloride 109 H Carbon Dioxide 21 L Anion Gap 4 L BUN 12 Creatinine 0.60 L Estim Creat Clear Calc 117 Estimated GFR > 60 Glucose 76 POC Capillary Glucose Uric Acid 6.9 Calcium 8.4 Total Bilirubin 0.2 AST 28 ALT 38 H Alkaline Phosphatase 87 Total Protein 6.0 L Albumin 2.9 L U Random Total Protein Urine Creatinine Protein/Creat Ratio 2 OB - PN A/P Assessment and Plan (1) Preeclampsia: Qualifiers: Trimester: third trimester Qualified Code(s): O14.93 - Unspecified pre-eclampsia, third trimester Code(s): O14.90 - Unspecified pre-eclampsia, unspecified trimester Status: Acute (2) GDM, class A2: Code(s): O24.419
[2022-02-26 06:43] LABS: Glucose Point of Care 71 mg/dl (65-105)
[2022-02-26] MEDS: LORATADINE 10 MG TABLET PO (10:08)
[2022-02-26] MEDS: MULTIVIT/MIN/PREN/FOL AC/IRON TABLET 1 TAB PO (10:08)
[2022-02-26] MEDS: FERROUS SULFATE 324 MG TABLET PO (10:17)
[2022-02-26 10:18] LABS: Glucose Point of Care 119 mg/dl (65-105)
[2022-02-26 16:20] LABS: Glucose Point of Care 95 mg/dl (65-105)
[2022-02-26 19:09] LABS: Glucose Point of Care 100 mg/dl (65-105)
[2022-02-26] MEDS: INSULIN HUMAN NPH (*BKC) 100 UNITS/ML 6 UNITS SUB-Q (22:02)
[2022-02-26 22:13] LABS: Glucose Point of Care 91 mg/dl (65-105)
[2022-02-27] VITALS (19 sets, daily range): BP systolic 132–155; BP diastolic 76–95; PULSE 64–87; TEMP 36.6–36.8
[2022-02-27] MEDS: LABETALOL HCL 100 MG TABLET 200 MG PO ×3 (01:58→18:14)
[2022-02-27 05:17] LABS: Hematocrit 31.8 % (37.0-47.0); Hemoglobin 10.4 g/dL (12.0-15.0); Mean Corpuscular HGB Conc 32.7 g/dl (32-36); Mean Corpuscular Volume 91.6 fl (80-100); Mean Platelet Volume 11.5 fl (7.4-10.4); Platelet Count Result 166 k/mm3 (150-375); Red Blood Count 3.47 M/mm3 (4.2-5.4); Red Cell Distribution Width 13.2 % (11.5-14.5); White Blood Count 6.9 K/mm3 (4.5-10.0)
[2022-02-27 05:29] LABS: Alanine Aminotransferase 31 U/L (4-35); Albumin Level 2.8 g/dL (3.5-5.1); Alkaline Phosphatase 91 U/L (38-126); Anion Gap 4 mmol/L (8-16); Aspartate Amino Transferase 28 U/L (14-36); Bilirubin,Total 0.2 mg/dL (0.2-1.3); Blood Urea Nitrogen 11 mg/dL (7-17); Calcium 8.1 mg/dL (8.4-10.2); Carbon Dioxide 20 mmol/L (22-30); Chloride 111 mmol/L (98-107); Estimated CRCL calculation 137 ml/min; Estimated Glomerular Filt Rate > 60; Glucose 74 mg/dL (65-110); Potassium 4.2 mmol/L (3.4-5.0); Sodium 135 mmol/L (137-145); Uric Acid 7.4 mg/dL (2.5-7.5)
[2022-02-27] MEDS: FERROUS SULFATE 324 MG TABLET PO (09:55)
[2022-02-27] MEDS: ERGOCALCIFEROL 50,000 UNIT CAPSULE 50000 UNITS PO (09:55)
[2022-02-27] MEDS: MULTIVIT/MIN/PREN/FOL AC/IRON TABLET 1 TAB PO (09:55)
--- NOTE | 2022-02-27 10:42 | PM.OBPNVD ---
OB - PN: Subj Subjective Date/time seen: 02/27/22 10:26 HD# 10 Rosalba is a 36yo @ 34.0wks admitted with pre-eclampsia. This morning she reports feeling well, no issues overnight. No MATHEWS, CP, SOB, RUQ pain, or vision changes. Her blood pressures have been in the moderate range; no severe ranges in >48hrs. She reports good movement. No ctx, vb, lof. She is tolerating regular diet. Normal bowel/bladder function. Interval history: Her is complicated by: - Previous c/s x5 - Placentomegaly; MFM ruled out MAP - Sterilization requested - Twin w/ demise of twin B - Pre-eclampsia with severe proteinuria (~7500g); on labetalol 200mg q8h PO - Covid infection in Nov 2021 - A2GDM on PM insulin - AMA - S/p ANCS 02/18 & 02/19 OB - PN: Obj Data Labs CBC & Chem 7: 02/27/22 05:08 02/27/22 05:08 Labs: Laboratory Results - last 24 hr 02/26/22 02/26/22 02/26/22 16:01 19:02 22:05 WBC RBC Hgb Hct MCV MCH MCHC RDW Plt Count MPV Sodium Potassium Chloride Carbon Dioxide Anion Gap BUN Creatinine Estim Creat Clear Calc Estimated GFR Glucose POC Capillary Glucose 95 100 91 Uric Acid Calcium Total Bilirubin AST ALT Alkaline Phosphatase Total Protein Albumin 02/27/22 02/27/22 05:08 05:08 WBC 6.9 RBC 3.47 L Hgb 10.4 L Hct 31.8 L MCV 91.6 MCH 30.0 MCHC 32.7 RDW 13.2 Plt Count 166 MPV 11.5 H Sodium 135 L Potassium 4.2 Chloride 111 H Carbon Dioxide 20 L Anion Gap 4 L BUN 11 Creatinine 0.50 L Estim Creat Clear Calc 137 Estimated GFR > 60 Glucose 74 POC Capillary Glucose Uric Acid 7.4 Calcium 8.1 L Total Bilirubin 0.2 AST 28 ALT 31 Alkaline Phosphatase 91 Total Protein 6.0 L Albumin 2.8 L OB - PN A/P Assessment and Plan (1) GDM, class A2: Code(s): O24.419 - Gestational diabetes mellitus in , unspecified control Status: Acute (2) Preeclampsia: Qualifiers: Trimester: third trimester Qualified Code(s): O14.93 - Unspecified pre-eclampsia, third trimester Code(s): O14.90 - Unspecified pre-eclampsia, unspecified trimester Status: Acute Plan Comments: - Repeat labs this AM stable; BP's also stable - Pt asymptomatic - Continue labetalol 200mg q8h - Continue other plans per Dr. Ann; NST q8h, dopplers/KSENIA/BPP qThursday, labs every other day, BPs q2h during day/q4h @ night - BS stable Time Spent With Patient Time: Total time spent is greater than 50% in coordination of care (as documented) at patient's floor/unit and/or counseling patient: Review of Systems Review of Systems: All systems reviewed & are unremarkable except as noted in HPI and below (HPI) Exam Const: General: cooperative, healthy appearing, comfortable and no acute distress Resp: Effort & Inspection: normal respiratory effort Auscultation: clear to auscultation bilaterally Cardio: Rate: regular rate GI: Inspection: normal to inspection GI Palp: No abdominal tenderness and Yes Soft to palpation Auscultation: normal bowel sounds : Other: 02/27/22 @ 0530 FHT's: 130's/mod michael/ + accels/ 1 mild variable noted TOCO: no ctx's Skin: General skin exam: normal color Neuro: General: patient oriented x3 Extrem: General: normal to inspection Psych: Appearance: grossly normal Affect: normal affect Attitude: cooperative
[2022-02-27 15:07] LABS: Glucose Point of Care 104 mg/dl (65-105)
[2022-02-27] MEDS: ACETAMINOPHEN 500 MG TABLET 1000 MG PO (19:25)
[2022-02-27 19:38] LABS: Glucose Point of Care 103 mg/dl (65-105)
[2022-02-27] MEDS: INSULIN HUMAN NPH (*BKC) 100 UNITS/ML 6 UNITS SUB-Q (22:12)
[2022-02-27 22:17] LABS: Glucose Point of Care 105 mg/dl (65-105)
[2022-02-28] VITALS (13 sets, daily range): BP systolic 132–144; BP diastolic 80–87; PULSE 70–85; TEMP 36.3–37.2; O2SAT 100
[2022-02-28] MEDS: LABETALOL HCL 100 MG TABLET 200 MG PO ×3 (01:30→18:19)
[2022-02-28 05:14] LABS: Glucose Point of Care 72 mg/dl (65-105)
--- NOTE | 2022-02-28 09:41 | P.PNOB_ITS ---
OB - PN: Subj Subjective Date/time seen: 02/28/22 09:41 Interval history: Today the patient is without complaints. She has good movement. She has no PH symptoms. Her is complicated by: - Previous c/s x5 - Placentomegaly; MFM ruled out MAP - Sterilization requested - Twin w/ demise of twin B - Pre-eclampsia with severe proteinuria (~7500g); on labetalol 200mg q8h PO - Covid infection in Nov 2021 - A2GDM on PM insulin - AMA - S/p ANCS 02/18 & 02/19 OB - PN: Obj Data Labs CBC & Chem 7: 02/27/22 05:08 02/27/22 05:08 Labs: Laboratory Results - last 24 hr 02/27/22 02/27/22 02/27/22 15:01 19:20 22:07 POC Capillary Glucose 104 103 105 02/28/22 05:09 POC Capillary Glucose 72 OB - PN A/P Assessment and Plan (1) with 34 to 36 completed weeks gestation: Status: Acute Assessment and Plan: 34 1/7 weeks Status post steroid Estimated weight 02/18 1800g (2) Preeclampsia: Qualifiers: Trimester: third trimester Qualified Code(s): O14.93 - Unspecified pre- eclampsia, third trimester Code(s): O14.90 - Unspecified pre-eclampsia, unspecified trimester Status: Acute Assessment and Plan: Labs are stable. Blood pressures are stable on labetalol. Continue close observation (3) GDM, class A2: Code(s): O24.419 - Gestational diabetes mellitus in , unspecified control Status: Acute Assessment and Plan: Continue p.m. NPH and diet Time Spent With Patient Time: Total time spent is greater than 50% in coordination of care (as documented) at patient's floor/unit and/or counseling patient: Exam Narrative: Abdomen is soft and nontender heart tones are reactive
[2022-02-28] MEDS: FERROUS SULFATE 324 MG TABLET PO (09:54)
[2022-02-28] MEDS: MULTIVIT/MIN/PREN/FOL AC/IRON TABLET 1 TAB PO (09:54)
[2022-02-28 10:04] LABS: Glucose Point of Care 117 mg/dl (65-105)
[2022-02-28 14:06] LABS: Glucose Point of Care 103 mg/dl (65-105)
[2022-02-28] MEDS: INSULIN HUMAN NPH (*BKC) 100 UNITS/ML 6 UNITS SUB-Q (23:31)
[2022-03-01] VITALS (10 sets, daily range): BP systolic 128–153; BP diastolic 78–85; PULSE 74–85; TEMP 36.7–36.8
[2022-03-01] MEDS: LABETALOL HCL 100 MG TABLET 200 MG PO ×3 (02:40→19:02)
[2022-03-01 07:02] LABS: Glucose Point of Care 66 mg/dl (65-105)
--- NOTE | 2022-03-01 08:13 | P.PNOB_ITS ---
OB - PN: Subj Subjective Date/time seen: 03/01/22 08:13 Interval history: The patient is without complaints. She has good movement. She has no PIH symptoms. Her is complicated by: - Previous c/s x5 - Placentomegaly; MFM ruled out MAP - Sterilization requested - Twin w/ demise of twin B - Pre-eclampsia with severe proteinuria (~7500g); on labetalol 200mg q8h PO - Covid infection in Nov 2021 - A2GDM on PM insulin - AMA - S/p ANCS 02/18 & 02/19 OB - PN: Obj Data Labs CBC & Chem 7: 02/27/22 05:08 02/27/22 05:08 Labs: Laboratory Results - last 24 hr 02/28/22 02/28/22 03/01/22 09:53 14:03 06:55 POC Capillary Glucose 117 H 103 66 OB - PN A/P Assessment and Plan (1) with 34 to 36 completed weeks gestation: Status: Acute Assessment and Plan: 34 2/7 wks (2) Preeclampsia: Qualifiers: Trimester: third trimester Qualified Code(s): O14.93 - Unspecified pre- eclampsia, third trimester Code(s): O14.90 - Unspecified pre-eclampsia, unspecified trimester Status: Acute Assessment and Plan: stable on Labetalol 200 mg TID (3) GDM, class A2: Code(s): O24.419 - Gestational diabetes mellitus in , unspecified control Status: Acute Assessment and Plan: stable Time Spent With Patient Time: Total time spent is greater than 50% in coordination of care (as documented) at patient's floor/unit and/or counseling patient: Exam Narrative: abdomen sof, nt ext no edema
[2022-03-01 09:53] LABS: Glucose Point of Care 126 mg/dl (65-105)
[2022-03-01] MEDS: MULTIVIT/MIN/PREN/FOL AC/IRON TABLET 1 TAB PO (10:35)
[2022-03-01 16:39] LABS: Glucose Point of Care 135 mg/dl (65-105)
[2022-03-01 20:11] LABS: Glucose Point of Care 103 mg/dl (65-105)
[2022-03-01] MEDS: INSULIN HUMAN NPH (*BKC) 100 UNITS/ML 6 UNITS SUB-Q (22:16)
[2022-03-02] VITALS (13 sets, daily range): BP systolic 130–150; BP diastolic 78–85; PULSE 76–80; RESP 16–18; TEMP 36.6–36.9
[2022-03-02] MEDS: LABETALOL HCL 100 MG TABLET 200 MG PO ×3 (02:43→18:17)
[2022-03-02 05:30] LABS: Hematocrit 31.5 % (37.0-47.0); Hemoglobin 10.7 g/dL (12.0-15.0); Mean Corpuscular Hemoglobin 30.4 pg (26-34); Mean Corpuscular Volume 89.5 fl (80-100); Mean Platelet Volume 11.9 fl (7.4-10.4); Platelet Count Result 144 k/mm3 (150-375); Red Blood Count 3.52 M/mm3 (4.2-5.4); Red Cell Distribution Width 13.2 % (11.5-14.5); White Blood Count 7.6 K/mm3 (4.5-10.0)
[2022-03-02 05:59] LABS: Alanine Aminotransferase 29 U/L (4-35); Albumin Level 2.9 g/dL (3.5-5.1); Alkaline Phosphatase 110 U/L (38-126); Anion Gap 5 mmol/L (8-16); Aspartate Amino Transferase 30 U/L (14-36); Bilirubin,Total < 0.1 mg/dL (0.2-1.3); Blood Urea Nitrogen 11 mg/dL (7-17); Calcium 8.1 mg/dL (8.4-10.2); Carbon Dioxide 19 mmol/L (22-30); Chloride 110 mmol/L (98-107); Estimated CRCL calculation 116 ml/min; Estimated Glomerular Filt Rate > 60; Glucose 74 mg/dL (65-110); Sodium 134 mmol/L (137-145); Uric Acid 7.7 mg/dL (2.5-7.5)
--- NOTE | 2022-03-02 07:30 | P.PNOB_ITS ---
OB - PN: Subj Subjective Date/time seen: 03/02/22 07:30 Interval history: The patient is without complaints. She has good movement. She has no PIH symptoms. Her is complicated by: - Previous c/s x5 - Placentomegaly; MFM ruled out MAP - Sterilization requested - Twin w/ demise of twin B - Pre-eclampsia with severe proteinuria (~7500g); on labetalol 200mg q8h PO - Covid infection in Nov 2021 - A2GDM on PM insulin - AMA - S/p ANCS 02/18 & 02/19 OB - PN: Obj Data Labs CBC & Chem 7: 03/02/22 05:06 03/02/22 05:06 Labs: Laboratory Results - last 24 hr 03/01/22 03/01/22 03/01/22 09:48 16:17 20:07 WBC RBC Hgb Hct MCV MCH MCHC RDW Plt Count MPV Sodium Potassium Chloride Carbon Dioxide Anion Gap BUN Creatinine Estim Creat Clear Calc Estimated GFR Glucose POC Capillary Glucose 126 H 135 H 103 Uric Acid Calcium Total Bilirubin AST ALT Alkaline Phosphatase Total Protein Albumin 03/02/22 03/02/22 05:06 05:06 WBC 7.6 RBC 3.52 L Hgb 10.7 L Hct 31.5 L MCV 89.5 MCH 30.4 MCHC 34.0 RDW 13.2 Plt Count 144 L MPV 11.9 H Sodium 134 L Potassium 4.0 Chloride 110 H Carbon Dioxide 19 L Anion Gap 5 L BUN 11 Creatinine 0.60 L Estim Creat Clear Calc 116 Estimated GFR > 60 Glucose 74 POC Capillary Glucose Uric Acid 7.7 H Calcium 8.1 L Total Bilirubin < 0.1 L AST 30 ALT 29 Alkaline Phosphatase 110 Total Protein 6.0 L Albumin 2.9 L OB - PN A/P Assessment and Plan (1) with 34 to 36 completed weeks gestation: Status: Acute Assessment and Plan: IUP 34 3/7 wks u/s tomorrow for dopplers and KSENIA (2) Preeclampsia: Qualifiers: Trimester: third trimester Qualified Code(s): O14.93 - Unspecified pre- eclampsia, third trimester Code(s): O14.90 - Unspecified pre-eclampsia, unspecified trimester Status: Acute Assessment and Plan: BP stable on labetalol platelets down a little will repeat tomorrow s/p steroids no symptoms (3) GDM, class A2: Code(s): O24.419 - Gestational diabetes mellitus in , unspecified control Status: Acute Assessment and Plan: accuchecks good continue diet and NPH Time Spent With Patient Time: Total time spent is greater than 50% in coordination of care (as documented) at patient's floor/unit and/or counseling patient: Exam Narrative: abdomen soft, nt ext no edema
[2022-03-02] MEDS: FERROUS SULFATE 324 MG TABLET PO (08:27)
[2022-03-02] MEDS: MULTIVIT/MIN/PREN/FOL AC/IRON TABLET 1 TAB PO (08:28)
[2022-03-02 09:25] LABS: Glucose Point of Care 112 mg/dl (65-105)
[2022-03-02 14:37] LABS: Glucose Point of Care 112 mg/dl (65-105)
[2022-03-02] MEDS: ERGOCALCIFEROL 50,000 UNIT CAPSULE 50000 UNITS PO (19:04)
[2022-03-02 19:27] LABS: Glucose Point of Care 132 mg/dl (65-105)
[2022-03-02] MEDS: INSULIN HUMAN NPH (*BKC) 100 UNITS/ML 6 UNITS SUB-Q (22:41)
[2022-03-03] VITALS (24 sets, daily range): BP systolic 127–152; BP diastolic 79–92; PULSE 68–81; RESP 16; TEMP 36.5–37.2; O2SAT 96–100
[2022-03-03] MEDS: LABETALOL HCL 100 MG TABLET 200 MG PO ×3 (02:15→18:01)
[2022-03-03 05:33] LABS: Glucose Point of Care 72 mg/dl (65-105)
[2022-03-03 05:36] LABS: Hematocrit 33.3 % (37.0-47.0); Hemoglobin 10.8 g/dL (12.0-15.0); Mean Corpuscular HGB Conc 32.4 g/dl (32-36); Mean Corpuscular Hemoglobin 30.3 pg (26-34); Mean Corpuscular Volume 93.3 fl (80-100); Mean Platelet Volume 11.6 fl (7.4-10.4); Platelet Count Result 158 k/mm3 (150-375); Red Blood Count 3.57 M/mm3 (4.2-5.4); Red Cell Distribution Width 13.6 % (11.5-14.5)
--- NOTE | 2022-03-03 07:23 | P.PNOB_ITS ---
OB - PN: Subj Subjective Date/time seen: 03/03/22 07:23 Interval history: The patient is without complaints or questions. She has good movement. She has no PIH symptoms. Her is complicated by: - Previous c/s x5 - Placentomegaly - Sterilization requested - Twin w/ demise of twin B - Pre-eclampsia with severe proteinuria (~7500g); on labetalol 200mg q8h PO - Covid infection in Nov 2021 - A2GDM on PM insulin - AMA - S/p ANCS 02/18 & 02/19 OB - PN: Obj Data Labs CBC & Chem 7: 03/03/22 05:16 03/02/22 05:06 Labs: Laboratory Results - last 24 hr 03/02/22 03/02/22 03/02/22 09:17 14:31 19:23 WBC RBC Hgb Hct MCV MCH MCHC RDW Plt Count MPV POC Capillary Glucose 112 H 112 H 132 H 03/03/22 03/03/22 05:16 05:22 WBC 8.0 RBC 3.57 L Hgb 10.8 L Hct 33.3 L MCV 93.3 MCH 30.3 MCHC 32.4 RDW 13.6 Plt Count 158 MPV 11.6 H POC Capillary Glucose 72 OB - PN A/P Assessment and Plan (1) with 34 to 36 completed weeks gestation: Status: Acute Assessment and Plan: u/s today for KSENIA and Dopplers FHTs reactive (2) GDM, class A2: Code(s): O24.419 - Gestational diabetes mellitus in , unspecified control Status: Acute Assessment and Plan: continue diet and insulin (3) Preeclampsia: Qualifiers: Trimester: third trimester Qualified Code(s): O14.93 - Unspecified pre- eclampsia, third trimester Code(s): O14.90 - Unspecified pre-eclampsia, unspecified trimester Status: Acute Assessment and Plan: vss platelets increased labs stable continue labetalol and close observation Time Spent With Patient Time: Total time spent is greater than 50% in coordination of care (as documented) at patient's floor/unit and/or counseling patient: Exam Narrative: abdomen soft, nt ext no edema
--- NOTE | 2022-03-03 07:36 | PC.NURSE ---
Back from [facility]. Breakfast just arrived.
--- NOTE | 2022-03-03 08:10 | PC.NURSE ---
To [facility] per wheelchair.
[2022-03-03] MEDS: FERROUS SULFATE 324 MG TABLET PO (09:32)
[2022-03-03] MEDS: MULTIVIT/MIN/PREN/FOL AC/IRON TABLET 1 TAB PO (09:32)
[2022-03-03 10:02] LABS: Glucose Point of Care 91 mg/dl (65-105)
[2022-03-03 14:27] LABS: Glucose Point of Care 88 mg/dl (65-105)
[2022-03-03 18:10] LABS: Glucose Point of Care 82 mg/dl (65-105)
[2022-03-03] MEDS: INSULIN HUMAN NPH (*BKC) 100 UNITS/ML 6 UNITS SUB-Q (22:07)
[2022-03-03 22:14] LABS: Glucose Point of Care 91 mg/dl (65-105)
[2022-03-04] VITALS (11 sets, daily range): BP systolic 127–158; BP diastolic 80–91; PULSE 75–84; RESP 18; TEMP 36.1–36.7; O2SAT 99
[2022-03-04] MEDS: LABETALOL HCL 100 MG TABLET 200 MG PO ×3 (02:18→18:30)
[2022-03-04] MEDS: LORATADINE 10 MG TABLET PO (08:11)
--- NOTE | 2022-03-04 08:15 | PC.NURSE ---
Patient c/o of mild nasal stuffiness, medication given
[2022-03-04 08:24] LABS: Glucose Point of Care 66 mg/dl (65-105)
[2022-03-04] MEDS: FERROUS SULFATE 324 MG TABLET PO (10:10)
[2022-03-04] MEDS: MULTIVIT/MIN/PREN/FOL AC/IRON TABLET 1 TAB PO (10:10)
[2022-03-04 10:47] LABS: Glucose Point of Care 90 mg/dl (65-105)
--- NOTE | 2022-03-04 13:58 | P.PNOB_ITS ---
OB - PN: Subj Subjective Date/time seen: 03/04/22 13:58 Interval history: The patient is without complaints or questions. She has good movement. She has no PIH symptoms. Her is complicated by: - Previous c/s x5 - Placentomegaly - Sterilization requested - Twin w/ demise of twin B - Pre-eclampsia with severe proteinuria (~7500g); on labetalol 200mg q8h PO - Covid infection in Nov 2021 - A2GDM on PM insulin - AMA - S/p ANCS 02/18 & 02/19 OB - PN: Obj Data Labs CBC & Chem 7: 03/03/22 05:16 03/02/22 05:06 Labs: Laboratory Results - last 24 hr 03/03/22 03/03/22 03/03/22 14:10 17:59 22:06 POC Capillary Glucose 88 82 91 03/04/22 03/04/22 08:16 10:44 POC Capillary Glucose 66 90 OB - PN A/P Assessment and Plan (1) with 34 to 36 completed weeks gestation: Status: Acute Assessment and Plan: IUP 34 5/7 wks normal dopplers and KSENIA EFW 1800 g on 02/18 recheck weight (2) Preeclampsia: Qualifiers: Trimester: third trimester Qualified Code(s): O14.93 - Unspecified pre- eclampsia, third trimester Code(s): O14.90 - Unspecified pre-eclampsia, unspecified trimester Status: Acute Assessment and Plan: stable (3) GDM, class A2: Code(s): O24.419 - Gestational diabetes mellitus in , unspecified control Status: Acute Assessment and Plan: stable Time Spent With Patient Time: Total time spent is greater than 50% in coordination of care (as documented) at patient's floor/unit and/or counseling patient: Exam Narrative: abdomen soft, nt ext no edema
[2022-03-04] MEDS: CALCIUM CARBONATE (TUMS) 500 MG (200 MG ELEMENTAL) PO (15:10)
[2022-03-04 15:14] LABS: Glucose Point of Care 120 mg/dl (65-105)
[2022-03-04 19:26] LABS: Glucose Point of Care 98 mg/dl (65-105)
[2022-03-04] MEDS: INSULIN HUMAN NPH (*BKC) 100 UNITS/ML 6 UNITS SUB-Q (22:07)
[2022-03-04 22:10] LABS: Glucose Point of Care 77 mg/dl (65-105)
[2022-03-05] VITALS (72 sets, daily range): BP systolic 131–151; BP diastolic 80–94; PULSE 73–96; RESP 16; TEMP 36.4–36.7; O2SAT 97–100
[2022-03-05] MEDS: LABETALOL HCL 100 MG TABLET 200 MG PO ×3 (01:57→18:05)
[2022-03-05 05:09] LABS: Glucose Point of Care 75 mg/dl (65-105)
--- NOTE | 2022-03-05 07:11 | PC.NURSE ---
Pt on phone with . Checked BP and found FHT's per monitor- 125.
[2022-03-05] MEDS: FERROUS SULFATE 324 MG TABLET PO (08:15)
[2022-03-05] MEDS: MULTIVIT/MIN/PREN/FOL AC/IRON TABLET 1 TAB PO (08:15)
[2022-03-05 09:42] LABS: Glucose Point of Care 126 mg/dl (65-105)
--- NOTE | 2022-03-05 11:33 | PC.NURSE ---
Dr. Ann on unit and reviewed tracing with her including variable decels just before 1100.
--- NOTE | 2022-03-05 12:12 | P.PNOB_ITS ---
OB - PN: Subj Subjective Date/time seen: 03/05/22 12:12 Interval history: The patient is without complaints. She has good movement. She has no PIH symptoms. Reviewed plan for csection at 36-37 wks. if remains stable. Her is complicated by: - Previous c/s x5 - Placentomegaly - Sterilization requested - Twin w/ demise of twin B - Pre-eclampsia with severe proteinuria (~7500g); on labetalol 200mg q8h PO - Covid infection in Nov 2021 - A2GDM on PM insulin - AMA - S/p ANCS 02/18 & 02/19 OB - PN: Obj Data Labs CBC & Chem 7: 03/03/22 05:16 03/02/22 05:06 Labs: Laboratory Results - last 24 hr 03/04/22 03/04/22 03/04/22 15:10 19:22 22:06 POC Capillary Glucose 120 H 98 77 03/05/22 03/05/22 05:03 09:36 POC Capillary Glucose 75 126 H OB - PN A/P Assessment and Plan (1) with 34 to 36 completed weeks gestation: Status: Acute Assessment and Plan: IUP 34 6/7 s/p steroids u/s thurs EFW 02/18 1800 g (2) Preeclampsia: Qualifiers: Trimester: third trimester Qualified Code(s): O14.93 - Unspecified pre- eclampsia, third trimester Code(s): O14.90 - Unspecified pre-eclampsia, unspecified trimester Status: Acute Assessment and Plan: Stable. Continue monitoring. (3) GDM, class A2: Code(s): O24.419 - Gestational diabetes mellitus in , unspecified control Status: Acute Assessment and Plan: Good accuchecks Time Spent With Patient Time: Total time spent is greater than 50% in coordination of care (as documented) at patient's floor/unit and/or counseling patient: Exam Narrative: abdomen soft, nt ext no edema FHTs reactive-variable x 2 this am
[2022-03-05] MEDS: ACETAMINOPHEN 500 MG TABLET 1000 MG PO ×2 (12:49→21:34)
[2022-03-05] MEDS: CALCIUM CARBONATE (TUMS) 500 MG (200 MG ELEMENTAL) PO (12:49)
--- NOTE | 2022-03-05 13:00 | PC.NURSE ---
Dr. Ann informed NST still not reactive and baby just had a 15 sec variable down to 100; pt remains on monitor. informed of pt's heartburn that pt didn't think tums would be enough for. Order received for Pepcid.
[2022-03-05] MEDS: FAMOTIDINE 20 MG TABLET PO (13:18)
--- NOTE | 2022-03-05 14:25 | PC.NURSE ---
Pt's heartburn has resolved. Still has a slight headache by left eye she rates as 1 out of 10.
[2022-03-05 15:12] LABS: Glucose Point of Care 112 mg/dl (65-105)
--- NOTE | 2022-03-05 18:32 | PC.NURSE ---
Dr. Ann informed baby still hasn't been reactive today and has continued to have an occasional 15-20 sec variable decels. Order received to do BPP and KSENIA in am if baby continues to remain non-reactive overnight.
[2022-03-05 19:34] LABS: Glucose Point of Care 84 mg/dl (65-105)
[2022-03-05] MEDS: INSULIN HUMAN NPH (*BKC) 100 UNITS/ML 6 UNITS SUB-Q (21:35)
[2022-03-05 21:45] LABS: Glucose Point of Care 83 mg/dl (65-105)
[2022-03-06] VITALS (14 sets, daily range): BP systolic 128–154; BP diastolic 75–90; PULSE 73–82; RESP 16; TEMP 36.3–36.7; O2SAT 98–100
[2022-03-06] MEDS: LABETALOL HCL 100 MG TABLET 200 MG PO ×3 (01:58→18:47)
[2022-03-06 05:17] LABS: Glucose Point of Care 76 mg/dl (65-105)
--- NOTE | 2022-03-06 07:29 | PC.NURSE ---
Pt still sleeping.
[2022-03-06] MEDS: ERGOCALCIFEROL 50,000 UNIT CAPSULE 50000 UNITS PO (08:03)
[2022-03-06] MEDS: FERROUS SULFATE 324 MG TABLET PO (08:03)
[2022-03-06] MEDS: MULTIVIT/MIN/PREN/FOL AC/IRON TABLET 1 TAB PO (08:03)
[2022-03-06] MEDS: LORATADINE 10 MG TABLET PO (08:03)
--- NOTE | 2022-03-06 09:08 | P.PNOB_ITS ---
OB - PN: Subj Subjective Date/time seen: 03/06/22 09:08 Interval history: The patient is without complaints. She has good movement. She has no PIH symptoms. Her is complicated by: - Previous c/s x5 - Placentomegaly - Sterilization requested - Twin w/ demise of twin B - Pre-eclampsia with severe proteinuria (~7500g); on labetalol 200mg q8h PO - Covid infection in Nov 2021 - A2GDM on PM insulin - AMA - S/p ANCS 02/18 & 02/19 OB - PN: Obj Data Labs CBC & Chem 7: 03/03/22 05:16 03/02/22 05:06 Labs: Laboratory Results - last 24 hr 03/05/22 03/05/22 03/05/22 09:36 15:04 19:26 POC Capillary Glucose 126 H 112 H 84 03/05/22 03/06/22 21:37 05:05 POC Capillary Glucose 83 76 OB - PN A/P Assessment and Plan (1) with 34 to 36 completed weeks gestation: Status: Acute Assessment and Plan: IUP @ 35 weeks u/s EFW 02/18 1800g (2) Preeclampsia: Qualifiers: Trimester: third trimester Qualified Code(s): O14.93 - Unspecified pre- eclampsia, third trimester Code(s): O14.90 - Unspecified pre-eclampsia, unspecified trimester Status: Acute Assessment and Plan: stable (3) GDM, class A2: Code(s): O24.419 - Gestational diabetes mellitus in , unspecified control Status: Acute Assessment and Plan: Good accuchecks Time Spent With Patient Time: Total time spent is greater than 50% in coordination of care (as documented) at patient's floor/unit and/or counseling patient: Exam Narrative: FHTs reactive with occ variables yesterday abdomen soft, nt ext no edema
[2022-03-06 14:27] LABS: Glucose Point of Care 124 mg/dl (65-105)
[2022-03-06 14:27] LABS: Glucose Point of Care 123 mg/dl (65-105)
[2022-03-06 18:57] LABS: Glucose Point of Care 114 mg/dl (65-105)
[2022-03-06] MEDS: INSULIN HUMAN NPH (*BKC) 100 UNITS/ML 6 UNITS SUB-Q (22:35)
[2022-03-06 22:44] LABS: Glucose Point of Care 98 mg/dl (65-105)
[2022-03-07] VITALS (13 sets, daily range): BP systolic 129–149; BP diastolic 80–91; PULSE 74–80; RESP 18; TEMP 36.2–36.8
[2022-03-07] MEDS: LABETALOL HCL 100 MG TABLET 200 MG PO ×3 (02:01→18:06)
[2022-03-07 05:13] LABS: Glucose Point of Care 70 mg/dl (65-105)
--- NOTE | 2022-03-07 08:19 | P.PNOB_ITS ---
OB - PN: Subj Subjective Date/time seen: 03/07/22 08:19 Interval history: The patient is without complaints. She has good movement. She has no PIH symptoms. Her is complicated by: - Previous c/s x5 - Placentomegaly - Sterilization requested - Twin w/ demise of twin B - Pre-eclampsia with severe proteinuria (~7500g); on labetalol 200mg q8h PO - Covid infection in Nov 2021 - A2GDM on PM insulin - AMA - S/p ANCS 02/18 & 02/19 OB - PN: Obj Data Labs CBC & Chem 7: 03/03/22 05:16 03/02/22 05:06 Labs: Laboratory Results - last 24 hr 03/06/22 03/06/22 03/06/22 09:52 14:21 18:45 POC Capillary Glucose 124 H 123 H 114 H 03/06/22 03/07/22 22:37 05:07 POC Capillary Glucose 98 70 OB - PN A/P Assessment and Plan (1) with 34 to 36 completed weeks gestation: Status: Acute Assessment and Plan: IUP 35 1 s/p steroids U/s for growth, dopplers, fluid on (2) Preeclampsia: Qualifiers: Trimester: third trimester Qualified Code(s): O14.93 - Unspecified pre- eclampsia, third trimester Code(s): O14.90 - Unspecified pre-eclampsia, unspecified trimester Status: Acute Assessment and Plan: stable BP good I/O's (3) GDM, class A2: Code(s): O24.419 - Gestational diabetes mellitus in , unspecified control Status: Acute Assessment and Plan: accuchecks good; continue diet and insulin Time Spent With Patient Time: Total time spent is greater than 50% in coordination of care (as documented) at patient's floor/unit and/or counseling patient: Exam Narrative: abdomen soft, nt FHTs reactive ext- no edema
[2022-03-07] MEDS: FERROUS SULFATE 324 MG TABLET PO (10:05)
[2022-03-07] MEDS: MULTIVIT/MIN/PREN/FOL AC/IRON TABLET 1 TAB PO (10:05)
--- NOTE | 2022-03-07 12:51 | PC.NURSE ---
Dr Ann notified of non reactive tracing, ok to dc monitoring as long as reactive in the last 24 hours.
[2022-03-07 14:14] LABS: Glucose Point of Care 116 mg/dl (65-105)
[2022-03-07 15:03] LABS: Glucose Point of Care 102 mg/dl (65-105)
[2022-03-07] MEDS: INSULIN HUMAN NPH (*BKC) 100 UNITS/ML 6 UNITS SUB-Q (22:17)
[2022-03-07 22:24] LABS: Glucose Point of Care 112 mg/dl (65-105)
[2022-03-08] VITALS (10 sets, daily range): BP systolic 127–162; BP diastolic 71–93; PULSE 70–83; RESP 16; TEMP 36.6–36.7
[2022-03-08] MEDS: LABETALOL HCL 100 MG TABLET 200 MG PO ×3 (02:09→18:05)
[2022-03-08 05:31] LABS: Glucose Point of Care 70 mg/dl (65-105)
--- NOTE | 2022-03-08 07:24 | PM.OBPNVD ---
OB - PN: Subj Subjective Date/time seen: 03/08/22 07:24 Interval history: The patient is without complaints. She has good movement. She has no PIH symptoms. Her is complicated by: - Previous c/s x5 - Placentomegaly - Sterilization requested - Twin w/ demise of twin B - Pre-eclampsia with severe proteinuria (~7500g); on labetalol 200mg q8h PO - Covid infection in Nov 2021 - A2GDM on PM insulin - AMA - S/p ANCS 02/18 & 02/19 OB - PN: Obj Data Labs CBC & Chem 7: 03/03/22 05:16 03/02/22 05:06 Labs: Laboratory Results - last 24 hr 03/07/22 03/07/22 03/07/22 10:08 15:00 22:13 POC Capillary Glucose 116 H 102 112 H 03/08/22 05:27 POC Capillary Glucose 70 OB - PN A/P Assessment and Plan (1) with 34 to 36 completed weeks gestation: Status: Acute Assessment and Plan: 35 2/7 wk (2) Preeclampsia: Qualifiers: Trimester: third trimester Qualified Code(s): O14.93 - Unspecified pre-eclampsia, third trimester Code(s): O14.90 - Unspecified pre-eclampsia, unspecified trimester Status: Acute Assessment and Plan: Stable. Continue Labetalol. (3) GDM, class A2: Code(s): O24.419 - Gestational diabetes mellitus in , unspecified control Status: Acute Assessment and Plan: stable (4) Previous section: Code(s): Z98.891 - History of uterine scar from previous surgery Status: Acute Assessment and Plan: plan csection and BTL next Thurs if remains stable Time Spent With Patient Time: Total time spent is greater than 50% in coordination of care (as documented) at patient's floor/unit and/or counseling patient: Exam Narrative: abdomen soft FHTs reactive Ext. no edema
[2022-03-08] MEDS: MULTIVIT/MIN/PREN/FOL AC/IRON TABLET 1 TAB PO (09:22)
[2022-03-08] MEDS: FERROUS SULFATE 324 MG TABLET PO (09:22)
[2022-03-08 10:12] LABS: Glucose Point of Care 145 mg/dl (65-105)
--- NOTE | 2022-03-08 10:15 | PC.NURSE ---
1015- called and notified of blood sugar of 145, no further orders at this time.
[2022-03-08 14:20] LABS: Glucose Point of Care 87 mg/dl (65-105)
[2022-03-08 19:57] LABS: Glucose Point of Care 107 mg/dl (65-105)
[2022-03-08] MEDS: INSULIN HUMAN NPH (*BKC) 100 UNITS/ML 6 UNITS SUB-Q (22:29)
[2022-03-09] VITALS (22 sets, daily range): BP systolic 128–147; BP diastolic 77–90; PULSE 73–83; RESP 16; TEMP 36.3–36.6
[2022-03-09] MEDS: LABETALOL HCL 100 MG TABLET 200 MG PO ×3 (02:35→18:36)
[2022-03-09 05:39] LABS: Glucose Point of Care 71 mg/dl (65-105)
--- NOTE | 2022-03-09 07:45 | P.PNOB_ITS ---
OB - PN: Subj Subjective Date/time seen: 03/09/22 07:45 Interval history: The patient is without complaints. She has good movement. She has no PIH symptoms. Her is complicated by: - Previous c/s x5 - Placentomegaly - Sterilization requested - Twin w/ demise of twin B - Pre-eclampsia with severe proteinuria (~7500g); on labetalol 200mg q8h PO - Covid infection in Nov 2021 - A2GDM on PM insulin - AMA - S/p ANCS 02/18 & 02/19 OB - PN: Obj Data Labs CBC & Chem 7: 03/03/22 05:16 03/02/22 05:06 Labs: Laboratory Results - last 24 hr 03/08/22 03/08/22 03/08/22 10:03 14:16 19:49 POC Capillary Glucose 145 H 87 107 H 03/09/22 05:34 POC Capillary Glucose 71 OB - PN A/P Assessment and Plan (1) with 34 to 36 completed weeks gestation: Status: Acute Assessment and Plan: IUP 35 3/7 weeks u/s tomorrow for weight and dopplers (2) Preeclampsia: Qualifiers: Trimester: third trimester Qualified Code(s): O14.93 - Unspecified pre- eclampsia, third trimester Code(s): O14.90 - Unspecified pre-eclampsia, unspecified trimester Status: Acute Assessment and Plan: stable on Labetalol good I/O's (3) GDM, class A2: Code(s): O24.419 - Gestational diabetes mellitus in , unspecified control Status: Acute Assessment and Plan: accuchecks good continut insulin and diet Time Spent With Patient Time: Total time spent is greater than 50% in coordination of care (as documented) at patient's floor/unit and/or counseling patient: Exam Narrative: abdomen soft, nt ext. no edema
[2022-03-09] MEDS: FERROUS SULFATE 324 MG TABLET PO (08:47)
[2022-03-09] MEDS: MULTIVIT/MIN/PREN/FOL AC/IRON TABLET 1 TAB PO (08:47)
[2022-03-09] MEDS: ERGOCALCIFEROL 50,000 UNIT CAPSULE 50000 UNITS PO (08:47)
[2022-03-09 10:37] LABS: Glucose Point of Care 116 mg/dl (65-105)
[2022-03-09 14:39] LABS: Glucose Point of Care 115 mg/dl (65-105)
--- NOTE | 2022-03-09 16:02 | PC.NURSE ---
Spoke with Dr. Ann about current NST with 2 variables noted and one 10x10 accelerations. Orders received to continue to monitor for 1 hour after last variable and if it is not recurrent then she can be taken off monitor and no need for BPP.
[2022-03-09 20:22] LABS: Glucose Point of Care 81 mg/dl (65-105)
[2022-03-09] MEDS: CALCIUM CARBONATE (TUMS) 500 MG (200 MG ELEMENTAL) PO (23:12)
[2022-03-09] MEDS: ACETAMINOPHEN 500 MG TABLET 1000 MG PO (23:12)
[2022-03-09] MEDS: INSULIN HUMAN NPH (*BKC) 100 UNITS/ML 6 UNITS SUB-Q (23:13)
[2022-03-10] VITALS (7 sets, daily range): BP systolic 142–153; BP diastolic 80–88; PULSE 74–86; TEMP 36.7
[2022-03-10] MEDS: LABETALOL HCL 100 MG TABLET 200 MG PO ×3 (02:33→18:47)
[2022-03-10 07:19] LABS: Glucose Point of Care 69 mg/dl (65-105)
[2022-03-10] MEDS: MULTIVIT/MIN/PREN/FOL AC/IRON TABLET 1 TAB PO (08:20)
[2022-03-10] MEDS: FERROUS SULFATE 324 MG TABLET PO (08:20)
--- NOTE | 2022-03-10 08:46 | P.PNOB_ITS ---
OB - PN: Subj Subjective Date/time seen: 03/10/22 08:46 Interval history: The patient tearful regarding u/s. She has good movement. She has no PIH symptoms. Her is complicated by: - Previous c/s x5 - Placentomegaly - Sterilization requested - Twin w/ demise of twin B - Pre-eclampsia with severe proteinuria (~7500g); on labetalol 200mg q8h PO - Covid infection in Nov 2021 - A2GDM on PM insulin - AMA - S/p ANCS 02/18 & 02/19 OB - PN: Obj Data Labs CBC & Chem 7: 03/03/22 05:16 03/02/22 05:06 Labs: Laboratory Results - last 24 hr 03/09/22 03/09/22 03/09/22 10:30 14:28 20:18 POC Capillary Glucose 116 H 115 H 81 03/10/22 07:10 POC Capillary Glucose 69 Imaging Radiologist's impression: Impressions Doppler Study 03/10/22 07:58 IMPRESSION: 1. Single fetus in vertex presentation with heart rate 134 beats per minute. 2. Estimated weight of 1959 grams, less than 3rd percentile using the currently reported clinical gestation age of 35 weeks 2 days, FELIPA(OPE) 04/12. 3. Femur length, FL/BPD ratio, EFW more than 2 standard deviations below expected. 4. Normal KSENIA 14.5 cm. 5. No low umbilical artery Doppler ratios. Obstetrics Ultrasound 03/10/22 07:58 IMPRESSION: 1. Single fetus in vertex presentation with heart rate 134 beats per minute. 2. Estimated weight of 1959 grams, less than 3rd percentile using the currently reported clinical gestation age of 35 weeks 2 days, FLEIPA(OPE) 04/12. 3. Femur length, FL/BPD ratio, EFW more than 2 standard deviations below expected. 4. Normal KSENIA 14.5 cm. 5. No low umbilical artery Doppler ratios. OB - PN A/P Assessment and Plan (1) with 34 to 36 completed weeks gestation: Status: Acute Assessment and Plan: IUP 35 4/7 wks EFW 1959 g -asymmetric IUGR normal dopplers and normal fluid NST reactive Reviewed in detail with patient (2) Preeclampsia: Qualifiers: Trimester: third trimester Qualified Code(s): O14.93 - Unspecified pre- eclampsia, third trimester Code(s): O14.90 - Unspecified pre-eclampsia, unspecified trimester Status: Acute Assessment and Plan: BP stable continue labetalol and bedrest (3) GDM, class A2: Code(s): O24.419 - Gestational diabetes mellitus in , unspecified control Status: Acute Assessment and Plan: stable continue insulin and diet (4) H/O: : Code(s): Z98.891 - History of uterine scar from previous surgery Status: Acute Assessment and Plan: plan csection in 1 week if remains stable Time Spent With Patient Time: Total time spent is greater than 50% in coordination of care (as documented) at patient's floor/unit and/or counseling patient: Exam Narrative: abdomen soft, nt ext no edema FHTs reactive
[2022-03-10] MEDS: ACETAMINOPHEN 500 MG TABLET 1000 MG PO ×3 (09:09→23:00)
[2022-03-10 10:16] LABS: Glucose Point of Care 120 mg/dl (65-105)
--- NOTE | 2022-03-10 14:35 | PC.NURSE ---
pt tearful and states she is just having a bad day today. Rn offered to take her on a wheelchair ride, but pt states she would think about it and maybe go for a wheelchair ride later. Pt declined needing/wanting anything at this time.
[2022-03-10] MEDS: LORATADINE 10 MG TABLET PO (17:29)
[2022-03-10 17:32] LABS: Glucose Point of Care 113 mg/dl (65-105)
[2022-03-10 20:36] LABS: Glucose Point of Care 88 mg/dl (65-105)
[2022-03-10] MEDS: INSULIN HUMAN NPH (*BKC) 100 UNITS/ML 6 UNITS SUB-Q (22:23)
[2022-03-10] MEDS: FAMOTIDINE 20 MG TABLET PO (22:23)
[2022-03-10 22:29] LABS: Glucose Point of Care 73 mg/dl (65-105)
[2022-03-11] VITALS (11 sets, daily range): BP systolic 133–154; BP diastolic 85–92; PULSE 72–88; TEMP 36.4–36.8; O2SAT 100
[2022-03-11] MEDS: LABETALOL HCL 100 MG TABLET 200 MG PO ×3 (02:04→18:20)
[2022-03-11 06:10] LABS: Glucose Point of Care 70 mg/dl (65-105)
[2022-03-11] MEDS: ACETAMINOPHEN 500 MG TABLET 1000 MG PO (06:10)
--- NOTE | 2022-03-11 07:49 | P.PNOB_ITS ---
OB - PN: Subj Subjective Date/time seen: 03/11/22 07:49 Interval history: Many questions and plan of care discussed with patient and . She has good movement. She has no PIH symptoms. Her is complicated by: - Previous c/s x5 - Placentomegaly - Sterilization requested - Twin w/ demise of twin B - Pre-eclampsia with severe proteinuria (~7500g); on labetalol 200mg q8h PO - Covid infection in Nov 2021 - A2GDM on PM insulin - AMA - S/p ANCS 02/18 & 02/19 OB - PN: Obj Data Labs CBC & Chem 7: 03/03/22 05:16 03/02/22 05:06 Labs: Laboratory Results - last 24 hr 03/10/22 03/10/22 03/10/22 10:10 14:30 20:32 POC Capillary Glucose 120 H 113 H 88 03/10/22 03/11/22 22:26 06:02 POC Capillary Glucose 73 70 Imaging Radiologist's impression: Impressions Doppler Study 03/10/22 07:58 IMPRESSION: 1. Single fetus in vertex presentation with heart rate 134 beats per minute. 2. Estimated weight of 1959 grams, less than 3rd percentile using the currently reported clinical gestation age of 35 weeks 2 days, FELIPA(OPE) 04/12. 3. Femur length, FL/BPD ratio, EFW more than 2 standard deviations below expected. 4. Normal KSENIA 14.5 cm. 5. No low umbilical artery Doppler ratios. Obstetrics Ultrasound 03/10/22 07:58 IMPRESSION: 1. Single fetus in vertex presentation with heart rate 134 beats per minute. 2. Estimated weight of 1959 grams, less than 3rd percentile using the currently reported clinical gestation age of 35 weeks 2 days, FELPIA(OPE) 04/12. 3. Femur length, FL/BPD ratio, EFW more than 2 standard deviations below expected. 4. Normal KSENIA 14.5 cm. 5. No low umbilical artery Doppler ratios. OB - PN A/P Assessment and Plan (1) with 34 to 36 completed weeks gestation: Status: Acute Assessment and Plan: IUP 35 5/7 wks Asymmetric IUGR with normal dopplers NST reactive s/p steroids (2) Preeclampsia: Qualifiers: Trimester: third trimester Qualified Code(s): O14.93 - Unspecified pre- eclampsia, third trimester Code(s): O14.90 - Unspecified pre-eclampsia, unspecified trimester Status: Acute Assessment and Plan: BP stable on Labetalol (3) GDM, class A2: Code(s): O24.419 - Gestational diabetes mellitus in , unspecified control Status: Acute Assessment and Plan: accucheck remain good continue insulin and diet (4) H/O: : Code(s): Z98.891 - History of uterine scar from previous surgery Status: Acute Assessment and Plan: plan delivery next Time Spent With Patient Time: Total time spent is greater than 50% in coordination of care (as documented) at patient's floor/unit and/or counseling patient: Exam Narrative: abdomen soft, nt ext no edema FHTs reactive
--- NOTE | 2022-03-11 08:15 | PC.NURSE ---
Patient slightly tearful after talking to Dr Ann. at bedside, no further questions at this time.
--- NOTE | 2022-03-11 09:34 | WPDHPUPDATE1 ---
History and Physical Update Update Date/Time: 03/11/22 09:34 History and Physical has been reviewed, including an updated exam of the patient. There are NO changes in the patient's condition. Risks, benefits, and alternatives have been discussed and questions answered. Patient agrees to proceed with procedure.
--- NOTE | 2022-03-11 09:34 | WPDOBADMIT ---
Obstetrics - Admit Note Admission Note: record reviewed. No pertinent additions to the history and/or any subsequent changes in the physical findings that are not consistent with the expected course of the were found. Additions to the history and/or subsequent changes in the physical findings follow. None.
[2022-03-11] MEDS: FERROUS SULFATE 324 MG TABLET PO (10:20)
--- NOTE | 2022-03-11 10:20 | PC.NURSE ---
Patient in better spirits. No questions or concerns at this time.
[2022-03-11] MEDS: MULTIVIT/MIN/PREN/FOL AC/IRON TABLET 1 TAB PO (10:21)
[2022-03-11 10:48] LABS: Glucose Point of Care 92 mg/dl (65-105)
[2022-03-11 15:15] LABS: Glucose Point of Care 124 mg/dl (65-105)
--- NOTE | 2022-03-11 19:28 | PC.NURSE ---
Linens changed. Dinner tray removed from room. Pt requesting wheelchair ride outside.
[2022-03-11 19:29] LABS: Glucose Point of Care 125 mg/dl (65-105)
[2022-03-11] MEDS: INSULIN HUMAN NPH (*BKC) 100 UNITS/ML 6 UNITS SUB-Q (23:35)
[2022-03-12] VITALS (11 sets, daily range): BP systolic 140–153; BP diastolic 85–100; PULSE 70–89; RESP 16; TEMP 37
[2022-03-12] MEDS: LABETALOL HCL 100 MG TABLET 200 MG PO ×3 (02:42→18:30)
[2022-03-12] MEDS: ACETAMINOPHEN 500 MG TABLET 1000 MG PO ×2 (02:43→13:11)
[2022-03-12 06:07] LABS: Glucose Point of Care 70 mg/dl (65-105)
--- NOTE | 2022-03-12 09:56 | P.PNOB_ITS ---
OB - PN: Subj Subjective Date/time seen: 03/12/22 09:56 Interval history: No questions or complaints. She has good movement. She has no PIH symptoms. Her is complicated by: - Previous c/s x5 - Placentomegaly - Sterilization requested - Twin w/ demise of twin B - Pre-eclampsia with severe proteinuria (~7500g); on labetalol 200mg q8h PO - Covid infection in Nov 2021 - A2GDM on PM insulin - AMA - S/p ANCS 02/18 & 02/19 OB - PN: Obj Data Labs CBC & Chem 7: 03/03/22 05:16 03/02/22 05:06 Labs: Laboratory Results - last 24 hr 03/11/22 03/11/22 03/11/22 10:44 14:28 19:22 POC Capillary Glucose 92 124 H 125 H 03/12/22 06:03 POC Capillary Glucose 70 OB - PN A/P Assessment and Plan (1) with 34 to 36 completed weeks gestation: Status: Acute Assessment and Plan: IUP 35 6/7 1959 g with normal dopplers, Reactive (2) Preeclampsia: Qualifiers: Trimester: third trimester Qualified Code(s): O14.93 - Unspecified pre- eclampsia, third trimester Code(s): O14.90 - Unspecified pre-eclampsia, unspecified trimester Status: Acute Assessment and Plan: BP stable I/O's good no symptoms (3) GDM, class A2: Code(s): O24.419 - Gestational diabetes mellitus in , unspecified control Status: Acute Assessment and Plan: continue insulin and diet (4) H/O: : Code(s): Z98.891 - History of uterine scar from previous surgery Status: Acute Assessment and Plan: plan delivery if remains stable Time Spent With Patient Time: Total time spent is greater than 50% in coordination of care (as documented) at patient's floor/unit and/or counseling patient: Exam Narrative: abdomen soft, nt ext no edema FHTs reactive with x 1 variable decel last pm for 60 sec
[2022-03-12] MEDS: FERROUS SULFATE 324 MG TABLET PO (10:29)
[2022-03-12] MEDS: MULTIVIT/MIN/PREN/FOL AC/IRON TABLET 1 TAB PO (10:30)
[2022-03-12] MEDS: LORATADINE 10 MG TABLET PO (10:31)
[2022-03-12 10:35] LABS: Glucose Point of Care 143 mg/dl (65-105)
[2022-03-12 14:04] LABS: Glucose Point of Care 129 mg/dl (65-105)
[2022-03-12 20:45] LABS: Glucose Point of Care 93 mg/dl (65-105)
[2022-03-12] MEDS: INSULIN HUMAN NPH (*BKC) 100 UNITS/ML 6 UNITS SUB-Q (23:06)
[2022-03-13] VITALS (10 sets, daily range): BP systolic 137–152; BP diastolic 84–90; PULSE 72–89; RESP 14–16; TEMP 36.8–37.1
[2022-03-13 00:28] LABS: Glucose Point of Care 89 mg/dl (65-105)
[2022-03-13] MEDS: LABETALOL HCL 100 MG TABLET 200 MG PO ×3 (02:05→19:04)
[2022-03-13 08:05] LABS: Glucose Point of Care 69 mg/dl (65-105)
--- NOTE | 2022-03-13 08:52 | P.PNOB_ITS ---
OB - PN: Subj Subjective Date/time seen: 03/13/22 08:52 Interval history: No questions or complaints. She has good movement. She has no PIH symptoms. Her is complicated by: - Previous c/s x5 - Placentomegaly - Sterilization requested - Twin w/ demise of twin B - Pre-eclampsia with severe proteinuria (~7500g); on labetalol 200mg q8h PO - Covid infection in Nov 2021 - A2GDM on PM insulin - AMA - S/p ANCS 02/18 & 02/19 OB - PN: Obj Data Labs CBC & Chem 7: 03/03/22 05:16 03/02/22 05:06 Labs: Laboratory Results - last 24 hr 03/12/22 03/12/22 03/12/22 10:27 13:59 20:18 POC Capillary Glucose 143 H 129 H 93 03/12/22 03/13/22 23:11 08:00 POC Capillary Glucose 89 69 OB - PN A/P Assessment and Plan (1) with 34 to 36 completed weeks gestation: Status: Acute Assessment and Plan: IUP 36 wks s/p steroids 1959 g (2) Preeclampsia: Qualifiers: Trimester: third trimester Qualified Code(s): O14.93 - Unspecified pre- eclampsia, third trimester Code(s): O14.90 - Unspecified pre-eclampsia, unspecified trimester Status: Acute Assessment and Plan: stable BP slight trend up will check labs this am (3) GDM, class A2: Code(s): O24.419 - Gestational diabetes mellitus in , unspecified control Status: Acute Assessment and Plan: stable continue insulin and diet (4) H/O: : Code(s): Z98.891 - History of uterine scar from previous surgery Status: Acute Assessment and Plan: plan delivery if remains stable Thurs Time Spent With Patient Time: Total time spent is greater than 50% in coordination of care (as documented) at patient's floor/unit and/or counseling patient: Exam Narrative: Abdomen soft, nt FHTs reactive ext no edema
[2022-03-13 09:08] LABS: Hematocrit 34.7 % (37.0-47.0); Hemoglobin 11.3 g/dL (12.0-15.0); Mean Corpuscular HGB Conc 32.6 g/dl (32-36); Mean Corpuscular Hemoglobin 30.3 pg (26-34); Mean Platelet Volume 11.3 fl (7.4-10.4); Platelet Count Result 175 k/mm3 (150-375); Red Blood Count 3.73 M/mm3 (4.2-5.4); Red Cell Distribution Width 15.8 % (11.5-14.5); White Blood Count 6.1 K/mm3 (4.5-10.0)
[2022-03-13 09:17] LABS: Alanine Aminotransferase 47 U/L (4-35); Albumin Level 2.7 g/dL (3.5-5.1); Alkaline Phosphatase 141 U/L (38-126); Anion Gap 5 mmol/L (8-16); Aspartate Amino Transferase 46 U/L (14-36); Bilirubin,Total 0.1 mg/dL (0.2-1.3); Blood Urea Nitrogen 12 mg/dL (7-17); Carbon Dioxide 19 mmol/L (22-30); Chloride 111 mmol/L (98-107); Estimated CRCL calculation 115 ml/min; Estimated Glomerular Filt Rate > 60; Glucose 70 mg/dL (65-110); Potassium 3.8 mmol/L (3.4-5.0); Sodium 135 mmol/L (137-145); Uric Acid 8.9 mg/dL (2.5-7.5)
--- NOTE | 2022-03-13 09:36 | PC.NURSE ---
0856--Dr. Ann at BS, v.s., EFM strips and accuchecks reviewed. Orders for labs to be drawn this a.m.
--- NOTE | 2022-03-13 09:38 | PC.NURSE ---
0927--Lab results called to Dr. Ann, no new orders received.
[2022-03-13 10:39] LABS: Glucose Point of Care 122 mg/dl (65-105)
[2022-03-13] MEDS: MULTIVIT/MIN/PREN/FOL AC/IRON TABLET 1 TAB PO (10:47)
[2022-03-13] MEDS: FERROUS SULFATE 324 MG TABLET PO (10:47)
[2022-03-13] MEDS: LORATADINE 10 MG TABLET PO (10:48)
[2022-03-13 14:34] LABS: Glucose Point of Care 116 mg/dl (65-105)
[2022-03-13 19:09] LABS: Glucose Point of Care 99 mg/dl (65-105)
[2022-03-13] MEDS: INSULIN HUMAN NPH (*BKC) 100 UNITS/ML 6 UNITS SUB-Q (22:09)
[2022-03-13 22:17] LABS: Glucose Point of Care 99 mg/dl (65-105)
[2022-03-14] VITALS (8 sets, daily range): BP systolic 135–151; BP diastolic 83–92; PULSE 72–88; TEMP 36.3
[2022-03-14] MEDS: LABETALOL HCL 100 MG TABLET 200 MG PO ×3 (03:03→18:53)
[2022-03-14] MEDS: FAMOTIDINE 20 MG TABLET PO (03:03)
[2022-03-14 05:34] LABS: Glucose Point of Care 73 mg/dl (65-105)
[2022-03-14] MEDS: MULTIVIT/MIN/PREN/FOL AC/IRON TABLET 1 TAB PO (08:33)
[2022-03-14] MEDS: FERROUS SULFATE 324 MG TABLET PO (08:33)
--- NOTE | 2022-03-14 09:05 | PM.OBPNVD ---
OB - PN: Subj Subjective Date/time seen: 03/14/22 09:05 Interval history: No questions or complaints. She has good movement. She has no PIH symptoms. Reviewed surgery and plan for repeat LTCS with BTL Her is complicated by: - Previous c/s x5 - Placentomegaly - Sterilization requested - Twin w/ demise of twin B - Pre-eclampsia with severe proteinuria (~7500g); on labetalol 200mg q8h PO - Covid infection in Nov 2021 - A2GDM on PM insulin - AMA - S/p ANCS 02/18 & 02/19 OB - PN: Obj Data Labs CBC & Chem 7: 03/13/22 09:00 03/13/22 09:00 Labs: Laboratory Results - last 24 hr 03/13/22 03/13/22 03/13/22 09:00 09:00 10:33 WBC 6.1 RBC 3.73 L Hgb 11.3 L Hct 34.7 L MCV 93.0 MCH 30.3 MCHC 32.6 RDW 15.8 H Plt Count 175 MPV 11.3 H Sodium 135 L Potassium 3.8 Chloride 111 H Carbon Dioxide 19 L Anion Gap 5 L BUN 12 Creatinine 0.60 L Estim Creat Clear Calc 115 Estimated GFR > 60 Glucose 70 POC Capillary Glucose 122 H Uric Acid 8.9 H Calcium 8.0 L Total Bilirubin 0.1 L AST 46 H ALT 47 H Alkaline Phosphatase 141 H Total Protein 6.0 L Albumin 2.7 L 03/13/22 03/13/22 03/13/22 14:22 19:03 22:09 WBC RBC Hgb Hct MCV MCH MCHC RDW Plt Count MPV Sodium Potassium Chloride Carbon Dioxide Anion Gap BUN Creatinine Estim Creat Clear Calc Estimated GFR Glucose POC Capillary Glucose 116 H 99 99 Uric Acid Calcium Total Bilirubin AST ALT Alkaline Phosphatase Total Protein Albumin 03/14/22 05:28 WBC RBC Hgb Hct MCV MCH MCHC RDW Plt Count MPV Sodium Potassium Chloride Carbon Dioxide Anion Gap BUN Creatinine Estim Creat Clear Calc Estimated GFR Glucose POC Capillary Glucose 73 Uric Acid Calcium Total Bilirubin AST ALT Alkaline Phosphatase Total Protein Albumin OB - PN A/P Assessment and Plan (1) 36 to 37 weeks gestation of : Status: Acute Assessment and Plan: IUP 36 1/7 wk 1959 g with normal dopplers s/p steroids FHTs reactive (2) Preeclampsia: Qualifiers: Trimester: third trimester Qualified Code(s): O14.93 - Unspecified pre-eclampsia, third trimester Code(s): O14.90 - Unspecified pre-eclampsia, unspecified trimester Status: Acute Assessment and Plan: BP stable, labs stable, no sx continue labetelol and close observation (3) GDM, class A2: Code(s): O24.419 - Gestational diabetes mellitus in , unspecified control Status: Acute Assessment and Plan: good control (4) Previous section: Code(s): Z98.891 - History of uterine scar from previous surgery Status: Acute Assessment and Plan: plan delivery by repeat LTCS and BTL requested Time Spent With Patient Time: Total time spent is greater than 50% in coordination of care (as documented) at patient's floor/unit and/or counseling patient: Exam Narrative: abdomen- soft, nt FHTs reactive Ext- no edema
[2022-03-14 09:19] LABS: Glucose Point of Care 120 mg/dl (65-105)
[2022-03-14] MEDS: ACETAMINOPHEN 500 MG TABLET 1000 MG PO ×2 (12:43→18:58)
[2022-03-14] MEDS: LORATADINE 10 MG TABLET PO (14:49)
[2022-03-14 14:53] LABS: Glucose Point of Care 109 mg/dl (65-105)
[2022-03-14 19:08] LABS: Glucose Point of Care 118 mg/dl (65-105)
[2022-03-14] MEDS: INSULIN HUMAN NPH (*BKC) 100 UNITS/ML 6 UNITS SUB-Q (21:30)
[2022-03-14 21:36] LABS: Glucose Point of Care 96 mg/dl (65-105)
[2022-03-15] VITALS (45 sets, daily range): BP systolic 131–174; BP diastolic 76–96; PULSE 69–87; RESP 16–18; TEMP 36.4–36.9; O2SAT 99–100
[2022-03-15] MEDS: LABETALOL HCL 100 MG TABLET 200 MG PO ×3 (01:59→18:02)
--- NOTE | 2022-03-15 07:05 | PC.NURSE ---
Pt remains asleep.
--- NOTE | 2022-03-15 07:40 | PM.OBPNVD ---
OB - PN: Subj Subjective Date/time seen: 03/15/22 07:40 Interval history: No questions or complaints. She has good movement. She has no PIH symptoms. Her is complicated by: - Previous c/s x5 - Placentomegaly - Sterilization requested - Twin w/ demise of twin B - Pre-eclampsia with severe proteinuria (~7500g); on labetalol 200mg q8h PO - Covid infection in Nov 2021 - A2GDM on PM insulin - AMA - S/p ANCS 02/18 & 02/19 OB - PN: Obj Data Labs CBC & Chem 7: 03/13/22 09:00 03/13/22 09:00 Labs: Laboratory Results - last 24 hr 03/14/22 03/14/22 03/14/22 09:15 14:50 19:00 POC Capillary Glucose 120 H 109 H 118 H 03/14/22 21:33 POC Capillary Glucose 96 OB - PN A/P Assessment and Plan (1) 36 to 37 weeks gestation of : Status: Acute Assessment and Plan: IUP 36 2/7 FHTs reactive EFW 1959g (2) Preeclampsia: Qualifiers: Trimester: third trimester Qualified Code(s): O14.93 - Unspecified pre-eclampsia, third trimester Code(s): O14.90 - Unspecified pre-eclampsia, unspecified trimester Status: Acute Assessment and Plan: BP stable no sx (3) GDM, class A2: Code(s): O24.419 - Gestational diabetes mellitus in , unspecified control Status: Acute Assessment and Plan: stable (4) H/O: : Code(s): Z98.891 - History of uterine scar from previous surgery Status: Acute Assessment and Plan: preop labs tomorrow and c/section 03/17 Time Spent With Patient Time: Total time spent is greater than 50% in coordination of care (as documented) at patient's floor/unit and/or counseling patient: Exam Narrative: abdomen soft, nt ext no edema FHTs reactive
[2022-03-15] MEDS: ACETAMINOPHEN 500 MG TABLET 1000 MG PO (08:14)
[2022-03-15] MEDS: LORATADINE 10 MG TABLET PO (08:16)
[2022-03-15] MEDS: ERGOCALCIFEROL 50,000 UNIT CAPSULE 50000 UNITS PO (08:17)
[2022-03-15] MEDS: FERROUS SULFATE 324 MG TABLET PO (08:17)
[2022-03-15] MEDS: MULTIVIT/MIN/PREN/FOL AC/IRON TABLET 1 TAB PO (08:17)
[2022-03-15 08:33] LABS: Glucose Point of Care 75 mg/dl (65-105)
[2022-03-15 11:07] LABS: Glucose Point of Care 164 mg/dl (65-105)
--- NOTE | 2022-03-15 11:22 | PC.NURSE ---
Dr. Ann informed pt's 1hr post breakfast blood sugar was 164. She had a pancake, yogurt, and oatmeal. Already discussed with pt not ordering 3 high carb foods in a meal.
[2022-03-15 14:22] LABS: Glucose Point of Care 117 mg/dl (65-105)
--- NOTE | 2022-03-15 16:25 | PC.NURSE ---
monitor applied for NST.
[2022-03-15 19:26] LABS: Glucose Point of Care 96 mg/dl (65-105)
[2022-03-15] MEDS: INSULIN HUMAN NPH (*BKC) 100 UNITS/ML 6 UNITS SUB-Q (22:34)
[2022-03-15 23:04] LABS: Glucose Point of Care 124 mg/dl (65-105)
[2022-03-16] VITALS (21 sets, daily range): BP systolic 128–158; BP diastolic 83–94; PULSE 72–91; RESP 16; TEMP 36.2–36.8; O2SAT 100
[2022-03-16] MEDS: LABETALOL HCL 100 MG TABLET 200 MG PO ×3 (01:54→18:15)
[2022-03-16] MEDS: CALCIUM CARBONATE (TUMS) 500 MG (200 MG ELEMENTAL) PO (04:00)
--- NOTE | 2022-03-16 07:32 | P.PNOB_ITS ---
OB - PN: Subj Subjective Date/time seen: 03/16/22 07:32 Interval history: No questions or complaints. She has good movement. She has no PIH symptoms. Reviewed csection and tubal tomorrow. Her is complicated by: - Previous c/s x5 - Placentomegaly - Sterilization requested - Twin w/ demise of twin B - Pre-eclampsia with severe proteinuria (~7500g); on labetalol 200mg q8h PO - Covid infection in Nov 2021 - A2GDM on PM insulin - AMA - S/p ANCS 02/18 & 02/19 OB - PN: Obj Data Labs CBC & Chem 7: 03/13/22 09:00 03/13/22 09:00 Labs: Laboratory Results - last 24 hr 03/15/22 03/15/22 03/15/22 07:53 11:02 14:09 POC Capillary Glucose 75 164 H 117 H 03/15/22 03/15/22 19:23 22:36 POC Capillary Glucose 96 124 H OB - PN A/P Assessment and Plan (1) 36 to 37 weeks gestation of : Status: Acute Assessment and Plan: IUP 36 3/7 wks FHTs reactive (2) Preeclampsia: Qualifiers: Trimester: third trimester Qualified Code(s): O14.93 - Unspecified pre- eclampsia, third trimester Code(s): O14.90 - Unspecified pre-eclampsia, unspecified trimester Status: Acute Assessment and Plan: stable plan delivery tomorrow (3) GDM, class A2: Code(s): O24.419 - Gestational diabetes mellitus in , unspecified control Status: Acute Assessment and Plan: increased pp breakfast yesterday otherwise stable (4) H/O: : Code(s): Z98.891 - History of uterine scar from previous surgery Status: Acute Assessment and Plan: plan csection with BTL tomorrow Time Spent With Patient Time: Total time spent is greater than 50% in coordination of care (as documented) at patient's floor/unit and/or counseling patient: Exam Narrative: abdomen-nontender FHTs reactive Ext-no edema
[2022-03-16 07:44] LABS: Glucose Point of Care 63 mg/dl (65-105)
[2022-03-16 07:46] LABS: Basophils Percent Auto 0.2 % (0.2-1.2); Eosinophils Absolute Auto 0.1 K/mm3 (0-0.3); Eosinophils Percent Auto 0.9 % (0-4.4); Hematocrit 34.2 % (37.0-47.0); Hemoglobin 11.4 g/dL (12.0-15.0); Immature Granulocyte Absolute 0.07 K/mm3 (0.00-0.031); Immature Granulocyte Percent A 1.1 % (0-0.5); Lymphocytes Absolute Auto 1.66 K/mm3 (0.9-3.2); Lymphocytes Percent Auto 25.8 % (18.3-44.2); Mean Corpuscular HGB Conc 33.3 g/dl (32-36); Mean Corpuscular Hemoglobin 31.1 pg (26-34); Mean Corpuscular Volume 93.2 fl (80-100); Mean Platelet Volume 11.4 fl (7.4-10.4); Monocytes Absolute Auto 0.4 K/mm3 (0.1-0.6); Monocytes Percent Auto 5.9 % (2.6-8.5); Neutrophils Absolute Auto 4.3 K/mm3 (1.3-6.7); Neutrophils Percent Auto 66.1 % (45.5-73.1); Platelet Count Result 154 k/mm3 (150-375); Red Blood Count 3.67 M/mm3 (4.2-5.4); Red Cell Distribution Width 15.9 % (11.5-14.5); White Blood Count 6.4 K/mm3 (4.5-10.0)
[2022-03-16 07:56] LABS: Alanine Aminotransferase 46 U/L (4-35); Albumin Level 2.5 g/dL (3.5-5.1); Alkaline Phosphatase 161 U/L (38-126); Anion Gap 5 mmol/L (8-16); Aspartate Amino Transferase 43 U/L (14-36); Bilirubin,Total < 0.1 mg/dL (0.2-1.3); Blood Urea Nitrogen 11 mg/dL (7-17); Calcium 7.9 mg/dL (8.4-10.2); Carbon Dioxide 19 mmol/L (22-30); Chloride 111 mmol/L (98-107); Estimated CRCL calculation 137 ml/min; Estimated Glomerular Filt Rate > 60; Glucose 67 mg/dL (65-110); Potassium 3.7 mmol/L (3.4-5.0); Sodium 135 mmol/L (137-145); Uric Acid 7.8 mg/dL (2.5-7.5)
[2022-03-16] MEDS: FERROUS SULFATE 324 MG TABLET PO (08:13)
[2022-03-16] MEDS: MULTIVIT/MIN/PREN/FOL AC/IRON TABLET 1 TAB PO (08:13)
[2022-03-16] MEDS: LORATADINE 10 MG TABLET PO (08:13)
[2022-03-16 08:34] LABS: Rapid Plasma Reagin Non-Reactive (NonReactive)
[2022-03-16 10:33] LABS: Glucose Point of Care 123 mg/dl (65-105)
[2022-03-16] MEDS: ERGOCALCIFEROL 50,000 UNIT CAPSULE 50000 UNITS PO (12:53)
[2022-03-16] MEDS: ACETAMINOPHEN 500 MG TABLET 1000 MG PO ×2 (15:05→22:11)
[2022-03-16 15:06] LABS: Glucose Point of Care 108 mg/dl (65-105)
[2022-03-16 19:14] LABS: Glucose Point of Care 120 mg/dl (65-105)
[2022-03-16] MEDS: FAMOTIDINE 20 MG TABLET PO (19:14)
[2022-03-16] MEDS: INSULIN HUMAN NPH (*BKC) 100 UNITS/ML 6 UNITS SUB-Q (22:07)
[2022-03-16 22:13] LABS: Glucose Point of Care 87 mg/dl (65-105)
[2022-03-17] VITALS (67 sets, daily range): BP systolic 102–162; BP diastolic 77–108; PULSE 61–76; RESP 14–18; TEMP 36.1–37.2; O2SAT 94–100
[2022-03-17] MEDS: LABETALOL HCL 100 MG TABLET 200 MG PO ×3 (01:59→20:19)
[2022-03-17 05:33] LABS: Glucose Point of Care 73 mg/dl (65-105)
[2022-03-17] MEDS: LACTATED RINGERS 1,000 ML 125 ML IV CONT ×2 (05:43→07:15)
--- NOTE | 2022-03-17 07:03 | WPDHPUPDATE1 ---
History and Physical Update Update Date/Time: 03/17/22 07:03 History and Physical has been reviewed, including an updated exam of the patient. There are NO changes in the patient's condition. Risks, benefits, and alternatives have been discussed and questions answered. Patient agrees to proceed with procedure.
--- NOTE | 2022-03-17 07:04 | WPDANESEPPF ---
Anes - Initial Pre Proc Eval Procedure: Operation Date: 03/17/22 07:30 Proposed Procedures p Repeat Section with Bilateral Tubal Sterilization - Morena Ann MD Date/Time: 03/17/22 07:04 Surgeon: Morena Ann MD Pre Op Diagnosis: Elevated Blood pressures,prior csect,sterilization Patient Data Age: 36 Gender: F Height: 1.63 m Weight: 87.15 kg Last Vital Signs Temp 36.7 C 03/16/22 18:14 Pulse 71 03/17/22 06:45 Resp 16 03/16/22 18:14 BP 162/89 H 03/17/22 06:45 Pulse Ox 100 03/16/22 15:02 Allergies Allergy/AdvReac Type Severity Reaction Status Date / Time No Known Allergies Allergy Unverified 01/26/22 13:55 Home Medications Medication Instructions Recorded Confirmed Type 1 tablet PO DAILY 06/12/20 02/19/22 History ergocalciferol (vitamin D2) 1,250 mcg PO DAILY 06/12/20 02/19/22 History hydroxyprogest(PF)(preg presv) 275 mg SUBCUT WEEKLY 12/30/21 02/19/22 History [Susan Moore (PF)] insulin NPH isoph U-100 human 6 unit SUBCUT HS 02/19/22 02/19/22 History [Humulin N NPH U-100 Insulin] Laboratory Tests 03/16/22 03/16/22 03/16/22 07:33 07:37 07:37 WBC 6.4 K/mm3 K/mm3 (4.5-10.0) RBC 3.67 M/mm3 L M/mm3 (4.2-5.4) Hgb 11.4 g/dL L g/dL (12.0-15.0) Hct 34.2 % L % (37.0-47.0) MCV 93.2 fl fl (80-100) MCH 31.1 pg pg (26-34) MCHC 33.3 g/dl g/dl (32-36) RDW 15.9 % H % (11.5-14.5) Plt Count 154 k/mm3 k/mm3 (150-375) MPV 11.4 fl H fl (7.4-10.4) Immature Gran % (Auto) 1.1 % H % (0-0.5) Neut % (Auto) 66.1 % % (45.5-73.1) Lymph % (Auto) 25.8 % % (18.3-44.2) [place] % (Auto) 5.9 % % (2.6-8.5) Eos % (Auto) 0.9 % % (0-4.4) Baso % (Auto) 0.2 % % (0.2-1.2) Lymph # (Auto) 1.66 K/mm3 K/mm3 (0.9-3.2) [place] # (Auto) 0.4 K/mm3 K/mm3 (0.1-0.6) Eos # (Auto) 0.1 K/mm3 K/mm3 (0-0.3) Baso # (Auto) 0.0 K/mm3 K/mm3 (0.0-0.1) Abs Immat Gran (auto) 0.07 K/mm3 H K/mm3 (0.00-0.031) Absolute Neuts (auto) 4.3 K/mm3 K/mm3 (1.3-6.7) Absolute Nucleated RBC 0.0 K/mm3 K/mm3 (0.0-0.012) Nucleated RBC % 0.0 % % (0.0-0.2) Sodium 135 mmol/L L mmol/L (137-145) Potassium 3.7 mmol/L mmol/L (3.4-5.0) Chloride 111 mmol/L H mmol/L (98-107) Carbon Dioxide 19 mmol/L L mmol/L (22-30) Anion Gap 5 mmol/L L mmol/L (8-16) BUN 11 mg/dL mg/dL (7-17) Creatinine 0.50 mg/dL L mg/dL (0.7-1.0) Estim Creat Clear Calc 137 ml/min ml/min Estimated GFR > 60 (59 - ) Glucose 67 mg/dL mg/dL (65-110) POC Capillary Glucose 63 mg/dl L mg/dl (65-105) Uric Acid 7.8 mg/dL H mg/dL (2.5-7.5) Calcium 7.9 mg/dL L mg/dL (8.4-10.2) Total Bilirubin < 0.1 mg/dL L mg/dL (0.2-1.3) AST 43 U/L H U/L (14-36) ALT 46 U/L H U/L (4-35) Alkaline Phosphatase 161 U/L H U/L (38-126) Total Protein 5.0 g/dL L g/dL (6.3-8.2) Albumin 2.5 g/dL L g/dL (3.5-5.1) RPR Blood Type Antibody Screen 03/16/22 03/16/22 03/16/22 07:37 07:37 10:30 WBC RBC Hgb Hct MCV MCH MCHC RDW Plt Count MPV Immature Gran % (Auto) Neut % (Auto) Lymph % (Auto) [place] % (Auto) Eos % (Auto) Baso % (Auto) Lymph # (Auto) [place] # (Auto) Eos # (Auto) Baso # (Auto) Abs Immat Gran (auto) Absolute Neuts (auto) Absolute Nucleated RBC Nucleated RBC % Sodium
--- NOTE | 2022-03-17 07:08 | PM.OBPNVD ---
OB - PN: Subj Subjective Date/time seen: 03/17/22 07:08 Interval history: No questions or complaints. She has good movement. She has no PIH symptoms. Reviewed csection and tubal today. Her is complicated by: - Previous c/s x5 - Placentomegaly - Sterilization requested - Twin w/ demise of twin B - Pre-eclampsia with severe proteinuria (~7500g); on labetalol 200mg q8h PO - Covid infection in Nov 2021 - A2GDM on PM insulin - AMA - S/p ANCS 02/18 & 02/19 OB - PN: Obj Data Labs CBC & Chem 7: 03/16/22 07:37 03/16/22 07:37 Labs: Laboratory Results - last 24 hr 03/16/22 03/16/22 03/16/22 07:33 07:37 07:37 WBC 6.4 RBC 3.67 L Hgb 11.4 L Hct 34.2 L MCV 93.2 MCH 31.1 MCHC 33.3 RDW 15.9 H Plt Count 154 MPV 11.4 H Immature Gran % (Auto) 1.1 H Neut % (Auto) 66.1 Lymph % (Auto) 25.8 [place] % (Auto) 5.9 Eos % (Auto) 0.9 Baso % (Auto) 0.2 Lymph # (Auto) 1.66 [place] # (Auto) 0.4 Eos # (Auto) 0.1 Baso # (Auto) 0.0 Abs Immat Gran (auto) 0.07 H Absolute Neuts (auto) 4.3 Absolute Nucleated RBC 0.0 Nucleated RBC % 0.0 Sodium 135 L Potassium 3.7 Chloride 111 H Carbon Dioxide 19 L Anion Gap 5 L BUN 11 Creatinine 0.50 L Estim Creat Clear Calc 137 Estimated GFR > 60 Glucose 67 POC Capillary Glucose 63 L Uric Acid 7.8 H Calcium 7.9 L Total Bilirubin < 0.1 L AST 43 H ALT 46 H Alkaline Phosphatase 161 H Total Protein 5.0 L Albumin 2.5 L RPR Blood Type Antibody Screen 03/16/22 03/16/22 03/16/22 07:37 07:37 10:30 WBC RBC Hgb Hct MCV MCH MCHC RDW Plt Count MPV Immature Gran % (Auto) Neut % (Auto) Lymph % (Auto) [place] % (Auto) Eos % (Auto) Baso % (Auto) Lymph # (Auto) [place] # (Auto) Eos # (Auto) Baso # (Auto) Abs Immat Gran (auto) Absolute Neuts (auto) Absolute Nucleated RBC Nucleated RBC % Sodium Potassium Chloride Carbon Dioxide Anion Gap BUN Creatinine Estim Creat Clear Calc Estimated GFR Glucose POC Capillary Glucose 123 H Uric Acid Calcium Total Bilirubin AST ALT Alkaline Phosphatase Total Protein Albumin RPR Non-reactive Blood Type O Positive Antibody Screen Negative 03/16/22 03/16/22 03/16/22 14:57 19:09 22:07 WBC RBC Hgb Hct MCV MCH MCHC RDW Plt Count MPV Immature Gran % (Auto) Neut % (Auto) Lymph % (Auto) [place] % (Auto) Eos % (Auto) Baso % (Auto) Lymph # (Auto) [place] # (Auto) Eos # (Auto) Baso # (Auto) Abs Immat Gran (auto) Absolute Neuts (auto) Absolute Nucleated RBC Nucleated RBC % Sodium Potassium Chloride Carbon Dioxide Anion Gap BUN Creatinine Estim Creat Clear Calc Estimated GFR Glucose POC Capillary Glucose 108 H 120 H 87 Uric Acid Calcium Total Bilirubin AST ALT Alkaline Phosphatase Total Protein Albumin RPR Blood Type Antibody Screen 03/17/22 05:26 WBC RBC Hgb Hct MCV MCH MCHC RDW Plt Count MPV Immature Gran % (Auto) Neut % (Auto) Lymph % (Auto) [place] % (Auto) Eos % (Auto) Baso % (Auto) Lymph # (Auto) [place] # (Auto) Eos # (Auto) Baso # (Auto) Abs Immat Gran (auto) Absolute Neuts (auto) Absolute Nucleated RBC Nucleated RBC % Sodium Potassium Chloride Carbon Dioxide Anion Gap BUN Creatinine Estim Creat Clear Calc Estimated GFR Glucose POC Capillary Glucose 73 Uric Acid Calcium Total Bilirubin AST ALT Alkaline Phosphatase Total Protein Albumin RPR Blood Type Antibody Screen OB - PN A/P Assessment and Plan (1) 36 to 37 weeks gestation of : Status: Acute Assessment and Plan: I
[2022-03-17] MEDS: ceFAZolin 2 GM/D5W 50 ML 2 GM/50 ML BAG IVPB (07:25)
--- NOTE | 2022-03-17 08:19 | W.PM.PROC2 ---
Procedure Note - Detailed Date of Procedure 03/17/22 Pre-op Diagnosis Intrauterine at 36 and 4/7 weeks preeclampsia gestational diabetes insulin requiring previous x5 request sterilization Post-op Diagnosis Same Procedure Performed repeat low transverse section and bilateral tubal ligation Surgeon Morena Ann MD Anesthesia Spinal Findings normal-appearing tubes ovaries uterus; male infant in the vertex position 4lb 7oz with Apgars of 8 [id number] and 9 [id number]; clear fluid; normal-appearing placenta Description of Procedure the patient was taken to the operating room and placed under spinal anesthesia in the dorsal supine position with a leftward tilt. Once anesthesia was deemed adequate she was prepped and draped in the usual sterile fashion. A Pfannenstiel skin incision was made through her previous incision and carried down to the underlying layer of fascia which was nicked in the midline. This incision went straight through to the uterus. And the uterus is cut approximately 1cm in the midline approximately 4cm above the lower uterine segment. The fascial incision is extended laterally using Garduno scissors. The incision was extended laterally and superiorly inferiorly with blunt traction. The bladder blade is placed in the vesicouterine peritoneum tented with a Peon. The peritoneum was entered with Metzenbaum was then extended laterally. The bladder flap was created using blunt dissection. The lower uterine segment was then incised in a transverse fashion with the scalpel and extended laterally using blunt traction. The membranes were ruptured and clear fluid noted the was delivered while the civil engineering assistant applied fundal pressure. Delayed cord clamping for approximately a minute was performed. The cord was then clamped and cut and the handed to the waiting nursery nurse. Cord gases and cord blood were taken. The placenta is removed using manual traction and sent for pathology. The uterus is cleared of all clots and debris and exteriorized. The uterine incision was closed using 0 Monocryl in a running locked fashion with the same suture used to imbricate. Good hemostasis is noted. The previous 1cm laceration is sutured with a [id number] of 0 Monocryl with good hemostasis. Attention was turned to the tubes the right tube was grasped with a Elrama and crossclamped with a Z clamp. The lower 2/3 of the tube are excised. Pedicle was tied off using Yuan stitch as well as a free tie of 0 Vicryl. Same identical procedure was performed on the opposite side. Good hemostasis is noted at both tubal sites. The cul-de-sac is irrigated and return uterus is returned to the abdomen. Tubal sites are again inspected and noted to be hemostatic. The incision was inspected noted to be hemostatic. The fascia was then closed using 0 Vicryl in a running fashion. Subcutaneous tissues are irrigated made hemostatic using Bovie cautery. The lower edge incision was undermined to allow for smooth closure. The skin is closed using 4-0 Vicryl in a subcuticular fashion. The Dermaflex was placed over the incision. Sponge, needle, and instrument counts are correct per the OR staff. The patient was given Ancef prior to incision. Estimated Blood Loss 270 Urine Output 300 Drains Yes ( Glaser catheter) Packing No Pathology Yes ( placenta and bilateral tubes) Complications No immediate complications Condition Stable Disposition Floor
--- NOTE | 2022-03-17 08:25 | PM.OBDSVD ---
DS: Admitting Diagnosis Discharge Date 03/21/22 Admitting Diagnosis IUP 32 weeks with preeclampsia GDMA2 Prior csection x 5 DS: Discharge Diagnosis Discharge Diagnosis (1) delivery delivered: Code(s): O82 - Encounter for delivery without indication Status: Acute (2) 36 to 37 weeks gestation of : Status: Acute Assessment and Plan: 36 02/24 (3) Preeclampsia: Qualifiers: Trimester: third trimester Qualified Code(s): O14.93 - Unspecified pre-eclampsia, third trimester Code(s): O14.90 - Unspecified pre-eclampsia, unspecified trimester Status: Acute (4) GDM, class A2: Code(s): O24.419 - Gestational diabetes mellitus in , unspecified control Status: Acute (5) H/O: : Code(s): Z98.891 - History of uterine scar from previous surgery Status: Acute (6) Encounter for sterilization: Code(s): Z30.2 - Encounter for sterilization Status: Acute OB - DS: Summary OB Procedures : NST, PIH Mgmt and Ultrasound OB Procedures Intrapartum: low cervical, transverse and Tubal ligation OB Procedures: : None Peripartum Data Infant Delivery Method: Section Procedures: Procedures Operation Date: 03/17/22 07:30 <No data on this case meets the specified criteria> complications: uterine atony (With hemorrhage) Status at Discharge Functional status at discharge: independent ambulation Overall status at discharge: patient is progressing back to baseline Time Spent with Patient Time attestation: Total time spent providing and/or coordinating discharge services: DS: Data Data Completed and Pending Labs on day of discharge: Labs from last 24 hours 03/17/22 03/16/22 03/16/22 05:26 22:07 19:09 POC Capillary Glucose 73 87 120 H RPR Antibody Screen 03/16/22 03/16/22 03/16/22 14:57 10:30 07:37 POC Capillary Glucose 108 H 123 H RPR Antibody Screen Negative 03/16/22 07:37 POC Capillary Glucose RPR Non-reactive Antibody Screen Discharge Plan Discharge Attending physician on discharge: Morena Ann Discharging Clinician: Morena Ann Anticipated Discharge Date/Time: 03/20/22 08:27 Patient Disposition: Home, Self-Care Activity: may shower, may drive after 2 weeks and pelvic rest Diet: regular Wound Care Instructions: incision open to air Patient Instructions: Antibiotic Form Stand Alone Forms: General Discharge Information Follow-up/Referrals: Morena Ann MD [Physician] - 1 Week (and 6 wk) Discharge Medications: New hydrocodone-acetaminophen 5-325 mg Tablet 1 tablet PO Q4H PRN (Reason: Moderate Pain (4-6)) Qty: 10 RF: 0 Continued ergocalciferol (vitamin D2) 1,250 mcg (50,000 unit) capsule 1,250 mcg PO DAILY RF: 0 28-800 mg-mcg Tablet 1 tablet PO DAILY RF: 0 Discontinued [place] (PF) 275 mg/1.1 mL Auto-Injector 275 mg SUBCUT WEEKLY RF: 0 Humulin N NPH U-100 Insulin 100 unit/mL suspension 6 unit SUBCUT HS RF: 0 Date of admission: 02/21/22 10:07 Primary Care Provider: Zeeshan Solorzano Admitting Provider: Morena Ann Attending physician on admission: Morena Ann Condition: Stable
[2022-03-17] MEDS: OXYTOCIN 30 UNITS/NS 500 ML 30 UNITS/500 ML BAG 125 UNITS IV CONT (09:09)
[2022-03-17] MEDS: MORPHINE SULFATE INJ (*CRX) 10 MG/ML AMP 2 MG IV PUSH (10:00)
--- NOTE | 2022-03-17 10:47 | OBPPTRN ---
Patient transferred to post room # 278 via stretcher. Support person present. Oriented to unit, room, information board, rooming in, admission packet and security measures. Patient verbalizes understanding.
[2022-03-17] MEDS: HYDROcodone/acetaminophen (*CRX) 5-325 MG TABLET 1 TAB PO ×3 (14:32→21:19)
[2022-03-17] MEDS: KETOROLAC 30 MG/ML VIAL (*BKC) IV PUSH ×2 (14:32→21:19)
[2022-03-17] MEDS: DEXTROSE 5%/0.45% SOD CHL 1,000 ML 125 ML IV CONT (14:32)
[2022-03-17] MEDS: DOCUSATE SODIUM 100 MG CAPSULE (18:04)
[2022-03-18] VITALS (14 sets, daily range): BP systolic 89–137; BP diastolic 53–84; PULSE 74–93; RESP 16–20; TEMP 36.5–37.4; O2SAT 96–100
[2022-03-18 01:09] LABS: Basophils Percent Auto 0.1 % (0.2-1.2); Eosinophils Absolute Auto 0.1 K/mm3 (0-0.3); Eosinophils Percent Auto 0.6 % (0-4.4); Hematocrit 28.4 % (37.0-47.0); Hemoglobin 9.3 g/dL (12.0-15.0); Immature Granulocyte Absolute 0.05 K/mm3 (0.00-0.031); Immature Granulocyte Percent A 0.5 % (0-0.5); Lymphocytes Absolute Auto 1.44 K/mm3 (0.9-3.2); Lymphocytes Percent Auto 13.7 % (18.3-44.2); Mean Corpuscular HGB Conc 32.7 g/dl (32-36); Mean Corpuscular Volume 94.7 fl (80-100); Monocytes Absolute Auto 0.4 K/mm3 (0.1-0.6); Monocytes Percent Auto 3.9 % (2.6-8.5); Neutrophils Absolute Auto 8.5 K/mm3 (1.3-6.7); Neutrophils Percent Auto 81.2 % (45.5-73.1); Platelet Count Result 171 k/mm3 (150-375); Red Cell Distribution Width 16.2 % (11.5-14.5); White Blood Count 10.5 K/mm3 (4.5-10.0)
[2022-03-18] MEDS: OXYTOCIN 30 UNITS/NS 500 ML 30 UNITS/500 ML BAG 125 UNITS IV CONT (01:10)
--- NOTE | 2022-03-18 01:19 | P.PNOB_ITS ---
OB - PN: Subj Subjective Date/time seen: 03/18/22 01:19 Interval history: Called by Ob second floor to come due to patient hemorrhaging. Initial RN could give me no other details and when asked to speak to someone to get report was told everyone was in the room with the patient. I hung up after 1 minute to get dressed and head to hospital. On route, I called again and insisted on speaking to someone. After 5 minutes, RN that has patient came to give report including that patient had syncopal episode into the bed from sitting and passing about 530 cc clots but now firm at U and not bleeding. She stated BP was 80's/53. On my arrival, patient supine, pale, BP 110/60, uterus firm, and no active bleeding. A second line had been started, labs sent, and fluid bolus begun. Ordered Pitocin at 125 cc/h and continue fluid bolus. Called back to room from desk and additional 290 cc clots expressed with vaginal/lower cervical exploration. Again bleeding has stopped. Hb 9.3 and other labs Ok except DDimer which is elevated consistent with . OB - PN: Obj Data Labs CBC & Chem 7: 03/18/22 01:02 03/16/22 07:37 Labs: Laboratory Results - last 24 hr 03/17/22 03/18/22 05:26 01:02 WBC 10.5 H RBC 3.00 L Hgb 9.3 L Hct 28.4 L MCV 94.7 MCH 31.0 MCHC 32.7 RDW 16.2 H Plt Count 171 MPV 11.0 H Immature Gran % (Auto) 0.5 Neut % (Auto) 81.2 H Lymph % (Auto) 13.7 L [place] % (Auto) 3.9 Eos % (Auto) 0.6 Baso % (Auto) 0.1 L Lymph # (Auto) 1.44 [place] # (Auto) 0.4 Eos # (Auto) 0.1 Baso # (Auto) 0.0 Abs Immat Gran (auto) 0.05 H Absolute Neuts (auto) 8.5 H Absolute Nucleated RBC 0.0 Nucleated RBC % 0.0 POC Capillary Glucose 73 OB - PN A/P Assessment and Plan (1) [place] of uterus with hemorrhage, delivered, current hospitalization: Code(s): O72.1 - Other immediate hemorrhage Status: Acute Assessment and Plan: Will continue Pitocin until evaluation in morning. Will also start TXA. Time Spent With Patient Time: Total time spent is greater than 50% in coordination of care (as docum ented) at patient's floor/unit and/or counseling patient:
[2022-03-18 01:22] LABS: Partial Thromboplastin Time 28.4 SECONDS (22.3-36.8)
[2022-03-18 01:23] LABS: Fibrinogen 309 mg/dl (215-510)
[2022-03-18 01:25] LABS: D Dimer 3.72 ug/mL (<0.48)
[2022-03-18] MEDS: TRANEXAMIC ACID 1,000 MG/10 ML AMPUL 1000 MG IV PUSH (01:39)
[2022-03-18] MEDS: DEXTROSE 5%/0.45% SOD CHL 1,000 ML 125 ML IV CONT (03:45)
[2022-03-18] MEDS: HYDROcodone/acetaminophen (*CRX) 5-325 MG TABLET 1 TAB PO ×6 (04:01→21:49)
[2022-03-18 05:23] LABS: Hematocrit 25.3 % (37.0-47.0); Hemoglobin 8.4 g/dL (12.0-15.0); Immature Platelet Fraction Pct 6.9 % (0.9-11.2); Mean Corpuscular HGB Conc 33.2 g/dl (32-36); Mean Corpuscular Hemoglobin 31.5 pg (26-34); Mean Corpuscular Volume 94.8 fl (80-100); Mean Platelet Volume 11.6 fl (7.4-10.4); Platelet Count Result 144 k/mm3 (150-375); Red Blood Count 2.67 M/mm3 (4.2-5.4)
--- NOTE | 2022-03-18 06:30 | PC.NURSE ---
Mother started pumping and hand expressing for 36 4/7 week . Colostrum is noted to be bloody. Mother denies and appears to have no nipple damage or pain.
--- NOTE | 2022-03-18 07:11 | PC.NURSE ---
0030: Assisting mother with feeding and after giving glucose gel, mother sat on side of the bed and stated that she was hearing a ringing in her ears and felt very hot, like she was going to pass out . Pt did lose consciousness and fell back into her bed for approx 3 minutes. Fundal assessment performed and found to be deviated to the right, boggy, and expression of large amount of clots present. Team OB called and Dr. Ann notified at 0053. Pt diaphoretic, pale and bp 89/53, 74. Second 18g iv started to right a/c and labs drawn. NS bolus initiated. Dr. Ann at bedside at approx 0110. Manual extraction of clots performed, iv pitocin initiated, labs reviewed. Continued to frequently perform fundal checks and pt noted to be slightly deviated to the right, firm, and fundus moves to midline easily, however trickling noted. 0200: Dr. Ann returned into room and updated on trickling with fundal checks and when pt raises her hips off the bed. Orders received for TXA bolus and to give ivpb q8 hours, hold labetalol for now, redraw CBC with AM labs. Pt's total QBL was 1311 ml thus far. Pt axox4.
[2022-03-18] MEDS: IBUPROFEN 600 MG TABLET PO ×3 (07:31→19:50)
--- NOTE | 2022-03-18 07:36 | PM.OBPNVD ---
OB - PN: Subj Subjective Date/time seen: 03/18/22 07:36 Interval history: not dizzy feeling better OB - PN: Obj Data Labs CBC & Chem 7: 03/18/22 04:55 03/16/22 07:37 Labs: Laboratory Results - last 24 hr 03/18/22 03/18/22 03/18/22 01:02 01:02 04:55 WBC 10.5 H 12.0 H RBC 3.00 L 2.67 L Hgb 9.3 L 8.4 L Hct 28.4 L 25.3 L MCV 94.7 94.8 MCH 31.0 31.5 MCHC 32.7 33.2 RDW 16.2 H 16.0 H Plt Count 171 144 L MPV 11.0 H 11.6 H Immature Gran % (Auto) 0.5 Neut % (Auto) 81.2 H Lymph % (Auto) 13.7 L [place] % (Auto) 3.9 Eos % (Auto) 0.6 Baso % (Auto) 0.1 L Lymph # (Auto) 1.44 [place] # (Auto) 0.4 Eos # (Auto) 0.1 Baso # (Auto) 0.0 Abs Immat Gran (auto) 0.05 H Absolute Neuts (auto) 8.5 H Absolute Nucleated RBC 0.0 Nucleated RBC % 0.0 % Immature Plt Fraction 6.9 PT 13.0 INR 1.0 APTT 28.4 Fibrinogen 309 D-Dimer 3.72 H OB - PN A/P Assessment and Plan (1) delivery delivered: Code(s): O82 - Encounter for delivery without indication Status: Acute (2) [place] of uterus with hemorrhage, delivered, current hospitalization: Code(s): O72.1 - Other immediate hemorrhage Status: Acute Assessment and Plan: improved overnight but some small gushes Pitocin restarted as RN has stopped when current bag had infused. u/s showed full bladder-RN to flush catheter and if needed remove and use bedside commode (3) Preeclampsia: Qualifiers: Trimester: third trimester Qualified Code(s): O14.93 - Unspecified pre-eclampsia, third trimester Code(s): O14.90 - Unspecified pre-eclampsia, unspecified trimester Status: Acute Assessment and Plan: stable good I/O's BP down since delivery and even lower post bleeding vss Time Spent With Patient Time: Total time spent is greater than 50% in coordination of care (as documented) at patient's floor/unit and/or counseling patient: Exam Narrative: inc c/di bedside u/s done-uterus with normal endometial echo; bladder full : Bimanual exam- vagina & uterus: other (Uterus firm, nt @U)
[2022-03-18] MEDS: TRANEXAMIC ACID 1,000MG/ISO100 1,000 MG/100 ML BAG 200 MG IVPB ×2 (10:08→17:41)
[2022-03-18] MEDS: OXYTOCIN 30 UNITS/NS 500 ML 30 UNITS/500 ML BAG 125 UNITS (10:09)
[2022-03-18] MEDS: SODIUM CHLORIDE 0.9% IV 100 ML 30 ML (10:10)
[2022-03-18] MEDS: DOCUSATE SODIUM 100 MG CAPSULE ×2 (10:26→16:58)
[2022-03-18] MEDS: MULTIVIT/MIN/PREN/FOL AC/IRON TABLET 1 TAB PO (10:26)
[2022-03-18] MEDS: POLYSACCHARIDE IRON COMPLEX 150 MG CAPSULE PO ×2 (10:27→16:56)
--- NOTE | 2022-03-18 12:00 | PC.NURSE ---
This patient, Rosalba Mathis, was received from PACU per bed on 03/18/22 at 1200. Patient/family oriented to unit policies and routines.
--- NOTE | 2022-03-18 13:29 | WPDANLDPN2 ---
Anes-Prog Note L&D Date/Time: 03/18/22 13:29 Comfortable throughout: section Neuraxial method: spinal Epidural/Spinal procedure site: clean & non-tender Neuro status: Neuro function grossly intact. Cardiovascular status: normal Respiratory status: normal Airway patency: baseline Mental status: baseline Post-Op hydration status: normal Vital Signs: Last Vital Signs Temp 99.3 F 03/18/22 12:31 Pulse 84 03/18/22 12:31 Resp 18 03/18/22 12:31 BP 127/75 03/18/22 12:31 Pulse Ox 99 03/18/22 12:31 Pain score (VAS): 11/29 I/O: Intake & Output 03/17/22 03/18/22 03/18/22 23:59 07:59 15:59 Intake Total 2950 1650 500 Output Total 975 1075 900 Balance 1975 575 -400 Post-procedural complaints: none Patient feedback: Patient satisfied with anesthetic care.
--- NOTE | 2022-03-18 13:30 | WPDANLDNPN2 ---
Anes-Prog Note L&D-Neuraxial Date/Time: 03/18/22 13:30 Neuraxial medications: epidural PF morphine Opiod-related complaints: none Patient feedback: Patient satisfied with post-operative pain management.
--- NOTE | 2022-03-18 16:16 | PC.NURSE ---
0800 - Introductions were made, then consulted with patient to assess needs related to . Mother led the conversation with her experience feeding her infant so far. Mother works well with her . Encouraged understanding of the benefits of skin to skin (unwrapping and placing vertically on her chest), responsive feeding and how to watch for early feeding signs, frequency of feeding on demand about every 8-12 times in 24 hours (every 2-3 hours), milk production, duration of feeding, signs of adequate intake/output and how to record on the feeding sheet. Mother is knowledgeable with taking care of lazy infant feeder. She is pumping adequate colostrum and it is tinged a dark dusky red color. Consulted Dasha Silveira RN, IBCLC with permission from the parents. Discussed the quick changes of the ducts, mother's history and the possible changes occurring that could potentially express this color of human milk. Mother has no visible injury, no pain or discomfort to her nipples and states drinks the milk just fine. Reviewed positioning and ear, shoulder, hip alignment, supporting the breast, asymmetrical latch (off-center), and leading with the chin with a big open side gape. Mother independently latched infant optimally to the right breast in football position. was able to maintain latch without discomfort to mother. Nipple care reviewed with optimal latch and good positioning. Reviewed good handwashing when or touching the breast/nipples to prevent infection. Resources used to facilitate learning were used with the mom and baby guide. Mother voiced understanding of responsive feedings, stimulating with skin to skin, hand expressed colostrum, touch, talking to infant to encourage if it has been 2 -3 hours since the start of the last , to call if does not latch or there is discomfort with . Reported to the primary RN.
[2022-03-19] MEDS: TRANEXAMIC ACID 1,000MG/ISO100 1,000 MG/100 ML BAG 200 MG IVPB ×2 (02:11→11:14)
[2022-03-19] MEDS: IBUPROFEN 600 MG TABLET PO ×3 (02:21→18:45)
[2022-03-19 04:06] VITALS: BP 138/76; PULSE 86; RESP 14; O2SAT 98
[2022-03-19 05:50] LABS: Hematocrit 21.9 % (37.0-47.0); Hemoglobin 7.2 g/dL (12.0-15.0)
[2022-03-19 08:30] VITALS: BP 133/79; PULSE 84; RESP 18; TEMP 36.7
[2022-03-19] MEDS: POLYSACCHARIDE IRON COMPLEX 150 MG CAPSULE PO ×2 (08:40→16:30)
[2022-03-19] MEDS: DOCUSATE SODIUM 100 MG CAPSULE PO ×2 (08:40→16:30)
[2022-03-19] MEDS: MULTIVIT/MIN/PREN/FOL AC/IRON TABLET 1 TAB PO (08:40)
[2022-03-19] MEDS: HYDROcodone/acetaminophen (*CRX) 5-325 MG TABLET 1 TAB PO ×3 (08:41→18:44)
--- NOTE | 2022-03-19 11:34 | PM.OBPNVD ---
OB - PN: Subj Subjective Date/time seen: 03/19/22 11:34 Interval history: Bleeding better Patient comments: no complaints and pain well controlled [place] baby status: doing well OB - PN: Obj Data Labs CBC & Chem 7: 03/19/22 04:14 03/16/22 07:37 Labs: Laboratory Results - last 24 hr 03/19/22 04:14 Hgb 7.2 L Hct 21.9 L OB - PN A/P Assessment and Plan (1) Preeclampsia: Qualifiers: Trimester: third trimester Qualified Code(s): O14.93 - Unspecified pre-eclampsia, third trimester Code(s): O14.90 - Unspecified pre-eclampsia, unspecified trimester Status: Acute Assessment and Plan: vss good diuresis (2) [place] of uterus with hemorrhage, delivered, current hospitalization: Code(s): O72.1 - Other immediate hemorrhage Status: Acute Assessment and Plan: dc TXA iron BID observe (3) delivery delivered: Code(s): O82 - Encounter for delivery without indication Status: Acute Assessment and Plan: continue post op care Plan day: 2 Plan: routine care Time Spent With Patient Time: Total time spent is greater than 50% in coordination of care (as documented) at patient's floor/unit and/or counseling patient: Exam Narrative: c/d/i : Bimanual exam- vagina & uterus: other (Uterus firm, nt @U)
[2022-03-19 12:30] VITALS: BP 146/85; PULSE 89; RESP 18; TEMP 36.6; O2SAT 98
[2022-03-19 16:53] VITALS: BP 134/82; PULSE 100; RESP 18; TEMP 37.1
[2022-03-19 20:00] VITALS: BP 146/79; PULSE 102; RESP 18; TEMP 36.6; O2SAT 99
[2022-03-19 23:00] VITALS: BP 147/93; PULSE 96; RESP 18; TEMP 36.6; O2SAT 98
[2022-03-20] MEDS: HYDROcodone/acetaminophen (*CRX) 5-325 MG TABLET 1 TAB PO ×5 (00:53→20:11)
[2022-03-20] MEDS: IBUPROFEN 600 MG TABLET PO ×3 (00:54→16:17)
[2022-03-20 04:00] VITALS: BP 141/90; PULSE 89; RESP 18; TEMP 36.5; O2SAT 97
[2022-03-20] MEDS: POLYSACCHARIDE IRON COMPLEX 150 MG CAPSULE PO ×2 (08:00→16:16)
[2022-03-20] MEDS: DOCUSATE SODIUM 100 MG CAPSULE PO ×2 (08:00→16:17)
[2022-03-20] MEDS: MULTIVIT/MIN/PREN/FOL AC/IRON TABLET 1 TAB PO (08:00)
[2022-03-20 08:15] VITALS: BP 149/82; PULSE 86; RESP 18; TEMP 36.7; O2SAT 100
--- NOTE | 2022-03-20 10:25 | PM.OBPNVD ---
OB - PN: Subj Subjective Date/time seen: 03/20/22 10:25 Interval history: Bleeding better Patient comments: no complaints and pain well controlled [place] baby status: doing well OB - PN: Obj Data Labs CBC & Chem 7: 03/19/22 04:14 03/16/22 07:37 OB - PN A/P Assessment and Plan (1) Preeclampsia: Qualifiers: Trimester: third trimester Qualified Code(s): O14.93 - Unspecified pre-eclampsia, third trimester Code(s): O14.90 - Unspecified pre-eclampsia, unspecified trimester Status: Acute Assessment and Plan: blood pressures stable off medication good diuresis Plan day: 3 Plan: routine care Time Spent With Patient Time: Total time spent is greater than 50% in coordination of care (as documented) at patient's floor/unit and/or counseling patient: Exam Narrative: incision clean dry and intact : Bimanual exam- vagina & uterus: other (Uterus firm, nt @U)
[2022-03-20 12:00] VITALS: BP 145/86; PULSE 107; RESP 16; O2SAT 100
[2022-03-20 16:00] VITALS: BP 133/83; PULSE 99; RESP 18; O2SAT 100
--- NOTE | 2022-03-20 16:56 | PC.NURSE ---
Patient viewed the discharge video Mother & Baby Care, The First Two Weeks . Patient was given the opportunity and encouraged to ask questions. Patient verbalized understanding of information shared and has been given the mother/baby guide for home reference.
[2022-03-20 20:00] VITALS: BP 146/86; PULSE 88; RESP 18; TEMP 36.6; O2SAT 98
[2022-03-20 23:15] VITALS: BP 138/95; PULSE 92; RESP 16; TEMP 36.4; O2SAT 100
[2022-03-21] MEDS: HYDROcodone/acetaminophen (*CRX) 5-325 MG TABLET 1 TAB PO ×4 (01:47→11:59)
[2022-03-21] MEDS: IBUPROFEN 600 MG TABLET PO ×2 (01:49→08:16)
[2022-03-21 05:00] VITALS: BP 139/85; PULSE 89; RESP 16; TEMP 36.4; O2SAT 100
[2022-03-21 07:35] VITALS: BP 136/88; PULSE 85; RESP 18; TEMP 36.4; O2SAT 99
[2022-03-21] MEDS: DOCUSATE SODIUM 100 MG CAPSULE PO (08:15)
[2022-03-21] MEDS: POLYSACCHARIDE IRON COMPLEX 150 MG CAPSULE PO (08:15)
[2022-03-21] MEDS: MULTIVIT/MIN/PREN/FOL AC/IRON TABLET 1 TAB PO (08:16)
--- NOTE | 2022-03-21 08:35 | P.PNOB_ITS ---
OB - PN: Subj Subjective Date/time seen: 03/21/22 08:35 Interval history: Patient comments: no complaints and pain well controlled baby status: doing well OB - PN: Obj Data Labs CBC & Chem 7: 03/19/22 04:14 03/16/22 07:37 OB - PN A/P Assessment and Plan (1) delivery delivered: Code(s): O82 - Encounter for delivery without indication Status: Acute Assessment and Plan: Discharge home (2) Atony of uterus with hemorrhage, delivered, current hospitalization: Code(s): O72.1 - Other immediate hemorrhage Status: Acute Assessment and Plan: Stable (3) Encounter for sterilization: Code(s): Z30.2 - Encounter for sterilization Status: Acute Assessment and Plan: Status post tubal ligation (4) Preeclampsia: Qualifiers: Trimester: third trimester Qualified Code(s): O14.93 - Unspecified pre- eclampsia, third trimester Code(s): O14.90 - Unspecified pre-eclampsia, unspecified trimester Status: Acute Assessment and Plan: Blood pressure stable off medications Time Spent With Patient Time: Total time spent is greater than 50% in coordination of care (as documented) at patient's floor/unit and/or counseling patient: Exam Narrative: Incision clean dry and intact : Bimanual exam- vagina & uterus: other (Uterus firm, nt @U)
[2022-03-21 11:43] VITALS: BP 141/89; PULSE 103; RESP 18; TEMP 37; O2SAT 98
[2022-03-22 12:26] VITALS: BP 131/84; PULSE 111; RESP 20; TEMP 37.1; O2SAT 100
== END 2022-03-21 12:13 | disposition home or self-care (01) | DRG 785 ==
LOC: ANHOBOP 02-19 10:34 → ANHOBPP 02-19 10:34 → ANHLDR 03-17 07:47 → ANHOB2 03-17 10:56
PROVIDERS: Obstetrics & Gynecology; Admitting Provider Obstetrics & Gynecology Gynecology; PCP Family Medicine; Visit Provider Obstetrics & Gynecology Gynecology
PROC: 10D00Z1 Extraction of Products of Conception, Low, Open Approach (ICD-10-PCS; CPT 59514; principal; 2022-03-17 07:30)
DX: O14.94 Unspecified pre-eclampsia, complicating childbirth (principal); Z37.0 Single live birth; Z3A.36 36 weeks gestation of pregnancy; O24.424 Gestational diabetes mellitus in childbirth, insulin controlled; O34.211 Maternal care for low transverse scar from previous cesarean delivery; O12.14 Gestational proteinuria, complicating childbirth; Z30.2 Encounter for sterilization; O72.1 Other immediate postpartum hemorrhage; O99.893 Other specified diseases and conditions complicating puerperium; R55 Syncope and collapse
CPT/HCPCS: 36415; 59025; 76815; 76816; 76819; 76820; 80053; 81050; 82570; 82575; 82948; 84156; 84550; 85014; 85018; 85025; 85027; 85055; 85380; 85384; 85610; 85730; 86592; 86850; 86900; 86901; 88302; 88307; 96372; A9270; J0131; J0690; J0702; J1815; J1885; J2270; J2274; J2405; J2590; J7120

== ENCOUNTER → 2022-05-03 15:14 | Outpatient (CLI) | payer OTHER, SELFPAY ==
--- NOTE | ~2022-05-03 | US_ITS ---
EXAMINATION: US right upper quadrant DATE: 05/03/2022 15:34 INDICATION: Right upper quadrant abdominal pain. Epigastric abdominal pain. TECHNIQUE: Multiple grayscale and Doppler ultrasound images of the abdomen were obtained. COMPARISON: CT abdomen and pelvis 11/25/11 FINDINGS: The visualized portions of the head, body, and tail of the pancreas are normal. The liver i s normal without focal lesion. There is normal flow in main portal vein. The gallbladder is normal in size and filled with gallstones. No gallbladder wall thickening or sonographic Sun sign. The comm on duct is normal and measures 6 mm. IMPRESSION: 1. Cholelithiasis. No evidence of acute cholecystitis. Reviewed, dictated and finalized at location B.
== END ==
PROVIDERS: PCP Family Medicine; Visit Provider Advanced Practice Midwife
DX: R10.11 Right upper quadrant pain (principal); R10.13 Epigastric pain; K80.20 Calculus of gallbladder without cholecystitis without obstruction
CPT/HCPCS: 76705

== ENCOUNTER 2022-05-27 12:17 | Outpatient (CLI) | payer OTHER, SELFPAY ==
[2022-05-27 12:35] LABS: Hematocrit 35.5 % (37.0-47.0); Hemoglobin 11.2 g/dL (12.0-15.0)
[2022-05-27 12:57] LABS: Alanine Aminotransferase 29 U/L (6-35); Albumin Level 4.4 g/dL (3.5-5.1); Alkaline Phosphatase 94 U/L (38-126); Amylase 63 U/L (30-110); Aspartate Amino Transferase 31 U/L (14-36); Bilirubin,Total 0.2 mg/dL (0.2-1.3); Lipase 95 U/L (23-300)
== END 2022-05-27 12:18 | disposition home or self-care (01) ==
PROVIDERS: PCP Family Medicine; Visit Provider Surgery
DX: K80.10 Calculus of gallbladder with chronic cholecystitis without obstruction (principal); D64.9 Anemia, unspecified; Z01.818 Encounter for other preprocedural examination
CPT/HCPCS: 36415; 80076; 82150; 83690; 85014; 85018

== ENCOUNTER 2022-05-30 03:17 | Day surgery (SDC) | payer OTHER, SELFPAY ==
--- NOTE | 2022-05-24 12:48 | PC.NURSE ---
Report to the Outpatient Waiting Room, entrance under the green pavilion located off [facility], at time 1000_ on date 05/30/22_. OR Time: ___1200_. - You and your visitor will be asked a series of questions to screen for COVID 19 for your protection. - Only one visitor is allowed at this time. - The patient visitor is requested to leave or wait in car when not with patient. - A mask is required within the hospital. Patients may have clear liquids (water, carbonated beverages, clear teas, apple juice) until 3 hours prior to surgery with a maximum of 20 ounces. - No food from midnight until time of surgery - Infants may have breast milk until 4 hours before surgery, infant formula 6 hours prior to surgery. - Children will be allowed to drink immediately following surgery. If applicable, please bring a bottle or sippy cup to assist with drinking. Juice, water, soda, and popsicles are readily available. For infants on formula, please bring formula the day of surgery. Pacifiers are allowed. Take the following medications with a SIP of water the morning of surgery: NONE Medications to discontinue per physician VITAMINS Date to take last dose 05/27/22___ Please no make-up, nail burkinan, hairspray, perfume, deodorant, or body powder the day of surgery. No jewelry (including any body piercings) or valuables the day of surgery, leave them at home. Please take a shower or bath the night before, or the morning of, surgery with an antibacterial soap. Wear comfortable, loose fitting clothing. Children are encouraged to wear pajamas. - Jewelry must be removed prior to entering the operating room. Rings and piercings that are not removed may be cut off. - The hospital will not accept responsibility for valuables. - Please leave all valuables, including medications, at home the day of surgery. If you are going home after surgery, a licensed funeral car driver must drive you home. - NO public transportation without another adult. - We recommend that an adult stay with you for 24 hours following discharge. - We also recommend that you do not drive, make important decision, drink alcoholic beverages, or take any drugs that were not prescribed by your health care provider for at least 24 hours after your discharge time. For Pediatric surgeries, we recommend two adults accompany the child home (only one inside the building at this time). Follow any additional instructions given to you from your surgeon. If you or anyone in your household have experienced Covid symptoms in the past week, please notify your surgeon or the nurse liaison at the phone number below for possible testing. Telephone instructions given to _PATIENT____and asked if any additional questions and then verbalized understanding. Patient advised to call surgeon office or pre surgery nurse liaison [phone] if any additional questions.
[2022-05-30] VITALS (8 sets, daily range): BP systolic 92–111; BP diastolic 36–68; PULSE 55–78; RESP 9–16; TEMP 36.4–36.5; O2SAT 99–100; BMI 31.5
[2022-05-30] MEDS: ACETAMINOPHEN 500 MG TABLET 1000 MG PO (10:52)
[2022-05-30] MEDS: KETOROLAC 15 MG/ML VIAL (*BKC) IV PUSH (11:04)
[2022-05-30] MEDS: LACTATED RINGERS 1,000 ML 30 ML IV CONT ×2 (11:04→12:49)
--- NOTE | 2022-05-30 11:07 | P.PNAN_ITS ---
Anes - Initial Pre Proc Eval Procedure: Operation Date: 05/30/22 12:30 Proposed Procedures p Laparoscopic Cholecystectomy - Zo Kelly MD Date/Time: 05/30/22 11:07 Surgeon: Zo Kelly MD Pre Op Diagnosis: chronic cholecystitis with stones Patient Data Age: 36 Gender: F Height: 1.63 m Weight: 83.4 kg Allergies Allergy/AdvReac Type Severity Reaction Status Date / Time No Known Allergies Allergy Verified 05/30/22 10:45 Home Medications Medication Instructions Recorded Confirmed Type ergocalciferol (vitamin D2) 1,250 1,250 mcg PO DAILY 06/12/20 05/30/22 History mcg (50,000 unit) capsule vit no.133-ferrous 1 tablet PO DAILY 06/12/20 05/30/22 History fumarate 28 mg-folic acid 800 mcg tablet () Patient hx anesthesia problems: none Family hx anesthesia problems: none Results Review: All pre-operative results and documents have been reviewed as part of the pre- operative evaluation. PMFSH Past Medical History Medical History GDM (gestational diabetes mellitus) Preeclampsia Surgical History Surgical History H/O: x 6 GDMx 3 Family History Family History Grandparent Breast cancer Social History Social History Social History: current everyday caffeine use. 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 Gender identity (if verbalized by the patient): Female Sexual Orientation (if Verbalized by the Patient): Straight or Heterosexual Spiritual care concerns: No Anes - Eval Final PreProcedure Day of Procedure 05/30/22 11:07 Patient weight: obese Heart: regular rate and rhythm Lungs: clear to auscultation Airway: Mallampati scale class II Neurological: alert and oriented ASA classification: II Emergent: no Anesthetic plan: proceed Anesthesia type and monitoring: general GIVS and ETT Results Review: All pre-operative results and documents have been reviewed as part of the pre- operative evaluation. Informed Consent: The patient's anesthetic plan and its attendant risks and benefits were discussed with the patient/family/POA. Questions were solicited and answers provided to the satisfaction of the patient/family/POA.
--- NOTE | 2022-05-30 11:45 | WPDHPUPDATE1 ---
History and Physical Update Update Date/Time: 05/30/22 11:45 History and Physical has been reviewed, including an updated exam of the patient. There are NO changes in the patient's condition. Risks, benefits, and alternatives have been discussed and questions answered. Patient agrees to proceed with procedure.
[2022-05-30] MEDS: ceFAZolin 2 GM/D5W 50 ML 2 GM/50 ML BAG IVPB (11:58)
[2022-05-30] MEDS: BUPIVACAINE/EPINEPHRINE 0.25% 50 ML VIAL 30 ML INFILTRATE (12:18)
--- NOTE | 2022-05-30 12:52 | W.PM.PROC2 ---
Procedure Note - Detailed Date of Procedure 05/30/22 Pre-op Diagnosis chronic cholecystitis with stones Post-op Diagnosis Same Procedure Performed Laparoscopic cholecystectomy Surgeon Zo Kelly MD Anesthesia General Indications 36-year-old female presented to the office complaining of postprandial right upper quadrant abdominal pain associated with nausea and vomiting. Workup including imaging significant for cholecystitis, cholelithiasis. Findings Cholecystitis with cholelithiasis Description of Procedure The patient was taken to the operating room placed in the supine position. After adequate induction of general anesthesia, the patient was prepped and draped in normal sterile fashion. A time-out was then performed to verify the patient's identity as well as the procedure being performed. I then made a 5 mm incision in the infraumbilical region. Through this, a Veress needle was placed into the peritoneal cavity and CO2 gas was then insufflated. After adequate pneumoperitoneum was achieved, the Veress needle was removed and a 5 mm optiview trocar was placed through this incision under direct visualization. I then placed the laparoscope through this trocar site and under direct visualization placed a further 12 mm subxiphoid port as well as 2 additional 5 mm ports in the right upper abdomen. The gallbladder was then identified and was noted to be moderately inflamed, distended, and full of gallstones. I was able to place a grasper at the dome of the gallbladder and this was retracted anterior and cephalad up over the liver. A 2nd retractor was then placed at the infundibulum and retracted laterally, this allowed visualization of the triangle of Calot. I then was able to visualize the cystic duct in its entirety from its proximal insertion into the gallbladder, to its distal junction with the common hepatic/common bile duct junction. At this point, I carefully skeletonized the proximal cystic duct with the [place] dissector. I then clipped and transected the proximal cystic duct. Next I visualized the cystic artery. Again the artery was skeletonized, clipped, and transected. I then used the Bovie cautery to take down the peritoneal attachments of the gallbladder off the liver bed. This was somewhat difficult given the amount of inflammation in the posterior space. Once the gallbladder specimen was completely detached, an endo-pouch was placed through the 12 mm port site. I then placed the gallbladder specimen into the Endo pouch and removed the endo-pouch from the 12 mm port site. The specimen will now be sent to pathology for further review. I then copiously irrigated the right upper quadrant. Hemostasis was noted in the liver bed, the clips were noted to be in good position on both the cystic duct stump and the cystic artery stump. No other pathology was noted in the right upper quadrant. I then moved the laparoscope to the subxiphoid port. No iatrogenic injury or other pathology was noted in the lower abdomen. I then closed the 12 mm trocar site under direct visualization using the Noe cone and 0 Vicryl suture. At this point, the abdomen was desufflated and all ports removed. All port sites were then closed with 4.O Monocryl subcuticular sutures. Dermabond was placed on each incision. The patient tolerated the procedure well, was extubated in the operating room postoperative and will be transferred to the recovery room in stable condition Estimated Blood Loss 10 Drains No Packing No Pathology Yes Complications No immediate complications Condition Stable Disposition PACU [facility] Billing Surgery - Charge Forward: Surgery Billing
[2022-05-30] MEDS: fentaNYL CITRATE INJ (*CRX) 100 MCG/2 ML VIAL 25 MCG IV PUSH ×5 (13:13→13:45)
[2022-05-30] MEDS: oxyCODONE HCL (*CRX) 5 MG TAB IR PO (14:20)
== END 2022-05-30 14:55 | disposition home or self-care (01) ==
PROVIDERS: PCP Family Medicine; Visit Provider Surgery
PROC: 0FT44ZZ Resection of Gallbladder, Percutaneous Endoscopic Approach (ICD-10-PCS; CPT 47562; principal; 2022-05-30 12:30)
DX: K80.10 Calculus of gallbladder with chronic cholecystitis without obstruction (principal); Z87.891 Personal history of nicotine dependence; E66.9 Obesity, unspecified; Z68.31 Body mass index [BMI] 31.0-31.9, adult
CPT/HCPCS: 47562; 36415; 80076; 82150; 83690; 85014; 85018; 86850; 86900; 86901; 88304; A9270; J0690; J1200; J1885; J2250; J2405; J2704; J2710; J3010; J7120

== ENCOUNTER 2024-04-05 09:58 | Outpatient (CLI) | payer OTHER, SELFPAY ==
--- NOTE | ~2024-04-05 | MM_ITS ---
EXAMINATION: MM screening fernando BI w chinyere HISTORY: Screening mammogram TECHNIQUE: Craniocaudal and mediolateral oblique 3-D tomosynthesis images were obtained and synthetic 2-D images were generated. CAD analysis was submitted and interpreted. COMPARISON: 06/20/2019 bilateral mammogram examination and Limited right breast ultrasound examination BREAST PARENCHYMAL COMPOSITION: The breasts are heterogeneously dense, which may obscure small masses . FINDINGS: There is no evidence of suspicious mass, calcification, or architectural distortion to sugg est malignancy in either breast. There has been no suspicious interval change. IMPRESSION: 1. No mammographic evidence of malignancy. 2. Recommend routine screening mammography in one year. BI-RADS Category 1: Negative Reviewed, dictated and finalized at location B.
== END 2024-04-05 09:59 ==
PROVIDERS: PCP Family Medicine; Visit Provider Obstetrics & Gynecology Gynecology
DX: Z12.31 Encounter for screening mammogram for malignant neoplasm of breast (principal)
CPT/HCPCS: 77063; 77067

== ENCOUNTER 2025-04-10 12:46 | Outpatient (CLI) | payer OTHER, SELFPAY ==
--- NOTE | ~2025-04-10 | MM_ITS ---
EXAMINATION: MM screening fernando BI w chinyere HISTORY: Screening TECHNIQUE: Craniocaudal and mediolateral oblique 3-D tomosynthesis images were obtained and synthetic 2-D images were generated. CAD analysis was submitted and interpreted. COMPARISON: Comparison to multiple prior studies sequentially, with oldest reviewed study dated 11/2018. BREAST PARENCHYMAL COMPOSITION: Dense: The breasts are heterogeneously dense, which may obscure small masses FINDINGS: There is no evidence of suspicious mass, calcification, or architectural distortion to sugg est malignancy in either breast. There has been no suspicious interval change. IMPRESSION: 1. No mammographic evidence of malignancy. 2. Recommend routine screening mammography in one year. BI-RADS Category 1: Negative Reviewed, dictated and finalized at location B.
--- OUTSIDE RECORDS SUMMARY | 2025-04-10 12:53 | XMS_ITS | Clinical Summary ---
Author Organization [facility] [employer] Address [address] [place] [address] Care Team Providers Care Audio Visual Director Name Role Phone Zeeshan Solorzano MD Primary Care Provider [phone] Source Comments [facility] [employer],non-owned Affiliates and Associated Physician Practices is amultiple site organization consisting of ambulatory clinics and hospital sitesin [place], [place], [place] and [place]. This disclosure is being madepursuant to the Care Everywhere program and may not contain all information available regarding this patient. Last updated 18.[employer] Allergies No known active allergies Medications * Be aware that medications may not be up to date on this document. Alwaysverify current medications with the patient. ondansetron (ZOFRAN) 4 MG tablet Take 4 mg by mouth every 6 hours as needed 12/28/2019 Active Vit-Fe Fumarate-FA ( VITAMIN) 27-0.8 MG Take 1 tablet by mouth once daily Active Active Problems Problem Noted Date Diagnosed Date Right lower quadrant pain 03/16/2012 Dysuria 03/16/2012 Dysmenorrhea 03/16/2012 Pelvic and perineal pain 03/16/2012 arrhythmia affecting , antepartum Resolved Problems Problem Noted Date Diagnosed Date Resolved Date Choroid plexus cyst 02/12/2020 06/12/20 20 Overview (02/12/2020): Bilateral TORCH panel IgM: negative for CMV, toxo, HSV 1, HSV 2 IgG: Positive for CMV, HSV 1; Negative for Toxo, HSV 2 Depression screening - Initi al over the phone on 02.11.20 02/11/2020 06/12/2020 Overview (02/11/2020): 02/11/2020 Rosalba Vaughan was screened for depression using the [place] Depression Scale (EPDS) via the phone during her [facility] intake call on 02/11/2020. Her initial score at baseline was 9. Based off of her score of 9, Rosalba does not warrant follow up. Patient will continue to be screened throughout , at intervals no closer than two weeks, for continued surveillance and early identification of depression until delivery. Patient reports mental health history. Diagnosis of anxiety. abnormality in pregnan cy - Choroid Plexus Cysts 01/28/2020 06/12/2020 Overview (02/13/2020): Images from the original note were not included. [facility] PATIENT--PLEASE CALL [phone] (ex 2) IF TRIAGED OR ADMITTED Care Provider: Dr. Kayden Solis [facility] consultants involved: RN-hIsan; JAY-Taj (at [place]) Diagnosis: Choroid Plexus Cysts (unremarkable size at ultrasound on 02.12.2020) Planned surveillance: Routine OB care; Released from [facility] after initial visit on 02.12.2020 Delivery location: [place] Delivery mode: hx c/s x4 Desired Delivery GA: Full Term follow up: No follow-up required [employer]ension Stone [employer]arry Supervisor: Dr. Yuni Juarez Contact Lens Cutter Concerns: 02/11/2020- Patient with history of anxiety- no medications Care plan based on evaluation and is subject to change based on assessment. See Images or Cardiac under Chart Review for US/ ECHO/ MRI reports. AMA (advanced maternal age) multigravida 35+, second trimester 01/22/2020 06/12/2020 Overview (02/12/2020): O+ (antibody screen pending) / Imm/Rpr-NR/ Hbsag-NR/ HIV- NR HH 11.1 /32.8 plts 249 Cf DNA low risk, predicted female Constipation 03/16/2012 03/19/2018 Immunizations Immunization Administration Dates Next Due iNFLUENZA VACCINE, RECOM-MATHEWS, QUADR. 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 Gender Identity Not on file Sexual Orientation Not on file Plan of Treatment Health Maintenance Due Date Last Done Comments LIPID TESTING 1983 MAMMOGRAM 1983 HIV SCREENING 1998 HEPATITIS C SCREENING 10/26/2001 DTAP/TDAP/TD VACCINES (1 - Tdap) 2002 HEPATITIS B VACCINE (1 of 3 - 19+ 3-dose series) 2002 PAP with HPV 2013 COVID-19 VACCINE (1 - 2023-2 5 season) 2024 DEPRESSION SCREENING 11/20/2024 INFLUENZA VACCINE (Season Ended) 2025 11/20/19 19 ZOSTER VACCINE (1 of 2) 2033 HIB VACCINE Aged Out No longer eligi ble based on patient's age to complete this topic HPV VACCINE Aged Out No longer eligi ble based on patient's age to complete this topic MENINGOCOCCAL (Group B) VACC INE SHARED DECISION-MAKING Aged Out No longer eligibl e based on patient's age to complete this topic MENINGOCOCCAL GROUPS A/C/Y/W VACCINE Aged Out No longer eligible b ased on patient's age to complete this topic PNEUMOCOCCAL VACCINE Aged Out No long er eligible based on patient's age to complete this topic Insurance [employer] [facility] Address: [address] [place] [id number] [facility] Address: [address] [place] [address] Care Teams Audio Visual Director Relationship Specialty Start Date End Date Zeeshan Solorzano MD [address] [place] [address] PCP - General 03/16/12
--- OUTSIDE RECORDS SUMMARY | 2025-04-10 12:53 | XMS_ITS | Clinical Summary ---
Author Organization [employer] [address] Address [address] [place] [address] Phone Care Team Providers Care Motor Grader Rough Grade Name Role Phone Unavailable Primary Care Provider Unavailabl e Social History Tobacco Use Types Packs/Day Years Used Date Smoking Tobacco: Never Assessed Comments Unknown Sex and Gender Information Value Date Recorded Sex Assigned at Not on file Legal Sex Female 8:22 AM CDT Gender Identity Not on file Sexual Orientation Not on file Plan of Treatment Health Maintenance Due Date Last Done Comments DTAP/TDAP/TD VACCINES (1 - Tdap) 2002 HEPATITIS B VACCINES (1 of 3 - 19+ 3-dose series) 2002 HPV/Cotest (21-29) 2004 CERVICAL CANCER SCREENING 2013 HPV/Cotest (30-65) 2013 PAP SMEAR 2013 BREAST CANCER SCREENING 2023 INFLUENZA VACCINE (#1) 2024 11/20/2018 HPV VACCINES Aged Out No longer eligi ble based on patient's age to complete this topic Insurance [employer] OPEN ACCESS HMO
--- OUTSIDE RECORDS SUMMARY | 2025-04-10 12:53 | XMS_ITS | Continuity of Care Document ---
Author Organization [facility] Address [address] [place] [address] Phone Care Team Providers Care Filler Machine Operator Name Role Phone Unavailable Unavailable Unavailable Advance Directives Directive Yes / No Effective Date File Name No Information Encounters Encounter Description Practice Location Reason(s) For Visit Diagnoses Date Provider Providers Copied on Encounter [facility], [address], [place], [place], [id number], [place] tel:[phone] [facility] No Information No Information Referring Provider: NEYMAR White, [address], [place], [address]. tel:[phone] Family History Family Member Type Diagnosis Age At Onset No Information Payers Payer name Insurance type Covered alliance party ID Authoriza tion(s) No Information Social History Type Description Quantity Date Captured Comments Sex Female Smoking Status No Information Chief Complaint And Reason For Visit No Information History Of Present Illness Encounter Date Complaint History Of Prese nt Illness No Information Instructions Date Instruction Additional Infor mation No Information Assessments Type Assessment Date No Information
== END 2025-04-10 12:47 | disposition home or self-care (01) ==
LOC: CHSIMG 12:49
PROVIDERS: PCP Family Medicine; Visit Provider Obstetrics & Gynecology Gynecology
DX: Z12.31 Encounter for screening mammogram for malignant neoplasm of breast (principal)
CPT/HCPCS: 77063; 77067